=== PATIENT | male | born 1945 | race Caucasian/White ===

== ENCOUNTER 2019-08-09 18:23 | Outpatient (CLI) | payer MEDICARE, OTHER, SELFPAY | END 2019-08-09 18:24 | disposition home or self-care (01) | LOC: LAB 18:25 | PROVIDERS: PCP Nurse Practitioner Family; Visit Provider Nurse Practitioner Family | DX: R30.0 Dysuria (principal) | CPT/HCPCS: 87077; 87086; 87186 ==

== ENCOUNTER 2019-12-25 16:49 | Outpatient (CLI) | payer MEDICARE, OTHER, SELFPAY ==
[2019-12-25 17:16] LABS: Basophils % 0.5 %; Eosinophils # 0.1 10^3/uL (0.0-0.8); Eosinophils % 1.6 %; Hematocrit 35.3 % (42.0-52.0); Hemoglobin 12.2 g/dL (11.7-16.6); Lymphocytes # 1.6 10^3/uL (0.8-4.8); Lymphocytes % 21.2 %; Mean Corpuscular HGB Conc 34.6 g/dL (30.0-36.0); Mean Corpuscular Hemoglobin 32.1 pg (28.0-34.0); Mean Corpuscular Volume 92.9 fL (80-94); Mean Platelet Volume 10.8 fL (7.4-10.4); Monocytes # 0.8 10^3/uL (0.2-0.9); Monocytes % 10.7 %; Neutrophils # 4.82 10^3/uL (1.8-7.7); Neutrophils % 65.9 %; Nucleated Red Blood Cells % 0 %; Platelet Count 213 10^3/cmm (130-400); Red Cell Distribution Width 12.5 % (12.1-15.1); White Blood Count 7.3 10^3/uL (4.0-10.0)
[2019-12-25 18:08] LABS: Estmated Average Glucose 117; Hemoglobin A1C 5.7 % (4.0-6.0)
[2019-12-25 18:17] LABS: Alanine Aminotransferase 14 U/L (0-41); Albumin Level 3.9 g/dL (3.5-5.2); Alkaline Phosphatase 92 IU/L (40-130); Anion Gap 14.9 (5-19); Aspartate Amino Transferase 18 U/L (0-40); Blood Urea Nitrogen 15 mg/dL (8-23); Calcium 8.8 mg/dL (8.5-10.5); Carbon Dioxide 26 mmol/L (22-29); Chloride 99 mmol/L (98-107); Chol HDL Ratio 2.43 mg/dL (1.0-5.00); Cholesterol 73 mg/dL (0-200); Globulin 2.6 g/dL (1.3-4.6); Glucose 115 mg/dL (65-115); HDL Cholesterol 30 mg/dL (60-100); LDL Cholesterol Calculated 25 mg/dL (50-129); LDL HDL Ratio 0.83 RATIO (0.00-3.22); Osmolality Calculated 281 mOsm/kg (285-295); Sodium 137 mmol/L (136-145); Total Bilirubin 0.4 mg/dL (0.15-1.2); Total Protein 6.5 g/dL (6.6-8.7); Triglycerides 89 mg/dL (0-150)
[2019-12-25 18:22] LABS: Creatinine Urine, Random 40 mg/dL (39-259); Microalbumin Random Urine 4 ug/dL (0-20)
[2019-12-25 18:24] LABS: Microalbum Creatinine Ratio Ur 100 mg/dL (0-20); Potassium 2.9 mmol/L (3.5-5.1)
== END 2019-12-25 16:50 | disposition home or self-care (01) ==
LOC: LAB 16:53
PROVIDERS: PCP Nurse Practitioner Family; Visit Provider Nurse Practitioner Family
DX: E78.00 Pure hypercholesterolemia, unspecified (principal); I10 Essential (primary) hypertension; R31.21 Asymptomatic microscopic hematuria
CPT/HCPCS: 80053; 80061; 82044; 83036; 84153; 85025

== ENCOUNTER 2020-01-10 14:53 | Outpatient (CLI) | payer MEDICARE, OTHER, SELFPAY ==
[2020-01-10 16:51] LABS: Anion Gap 13.4 (5-19); Blood Urea Nitrogen 15 mg/dL (8-23); Calcium 9.2 mg/dL (8.5-10.5); Carbon Dioxide 24 mmol/L (22-29); Chloride 103 mmol/L (98-107); Chol HDL Ratio 2.33 mg/dL (1.0-5.00); Cholesterol 91 mg/dL (0-200); Glucose 112 mg/dL (65-115); HDL Cholesterol 39 mg/dL (60-100); LDL Cholesterol Calculated 36 mg/dL (50-129); LDL HDL Ratio 0.92 RATIO (0.00-3.22); NT Pro B Type Natriuretic Pept 646 pg/mL (0-125); Osmolality Calculated 286 mOsm/kg (285-295); Potassium 3.4 mmol/L (3.5-5.1); Sodium 137 mmol/L (136-145); Triglycerides 79 mg/dL (0-150)
== END 2020-01-10 14:54 | disposition home or self-care (01) ==
PROVIDERS: Family Medicine; PCP Nurse Practitioner Family; Visit Provider Nurse Practitioner Family
DX: E78.5 Hyperlipidemia, unspecified (principal); E87.6 Hypokalemia; R60.9 Edema, unspecified; R31.0 Gross hematuria
CPT/HCPCS: 80048; 80061; 81003; 83880; 87086

== ENCOUNTER 2020-01-30 13:39 | Outpatient (CLI) | payer MEDICARE, OTHER, SELFPAY ==
--- NOTE | 2020-01-30 | USCV_ITS ---
Abimael Santillan Age: 74 Gender: M : 1945 Exam Date: 01/30/2020 14:25 Ordering Phys: Kallie Bedoya NP Technologist: Vaughn Aragon [place]am [place] [facility] [place]ication: COPD, EDEMA OF BLE, HTN BP: 136 / 74 HR: 69 Rhythm: Sinus Technical Quality: Fair MEASUREMENTS (Male / Female) Normal Values 2D ECHO LV Diastolic Diameter PLAX 3.1 cm 4.2 - 5.9 / 3.9 - 5.3 cm LV Systolic Diameter PLAX 1.9 cm IVS Diastolic Thickness 0.7 cm 0.6 - 1.0 / 0.6 - 0.9 cm IVS Systolic Thickness 1.1 cm LVPW Diastolic Thickness 0.9 cm 0.6 - 1.0 / 0.6 - 0.9 cm LVPW Systolic Thickness 1.0 cm LVOT Diameter 2.3 cm LV Ejection Fraction 2D Teich 71.8 % LV Ejection Fraction MOD 2C 73.5 % LV Ejection Fraction 2C AL 72.5 % LA Diameter 3.1 cm LA Width 3.5 cm LA Height 4.0 cm RA Width 3.4 cm RA Height 4.0 cm Aorta at Sinotubular Diameter 1.1 cm M-MODE LV Diastolic Diameter MM 5.7 cm 4.2 - 5.9 / 3.9 - 5.3 cm LV Systolic Diameter MM 3.4 cm LV Ejection Fraction MM Teich 69.8 % IVS Diastolic Thickness MM 1.1 cm 0.6 - 1.0 / 0.6 - 0.9 cm IVS Systolic Thickness MM 1.5 cm LVPW Diastolic Thickness MM 1.4 cm 0.6 - 1.0 / 0.6 - 0.9 cm LVPW Systolic Thickness MM 1.9 cm RV Diastolic Diameter MM 0.8 cm Aortic Annulus Diameter 3.6 cm LA Ao Ratio MM 0.9 MV E Point Septal Separation 0.7 cm DOPPLER AV Peak Velocity 150.0 cm/s LVOT Peak Velocity 132.0 cm/s AV Area Cont Eq vti 3.4 cm squared AV Area Cont Eq pk 3.6 cm squared MV Area PHT 5.0 cm squared Mitral E to A Ratio 0.8 MV E' Velocity 42.0 cm/s Mitral E to MV E' Ratio 7.2 Mitral E to LV E' Lateral Ratio 8.3 Mitral E to LV E' Septal Ratio 6.4 TR Peak Velocity 131.0 cm/s TR Peak Gradient 6.9 mmHg TV Peak E Velocity 82.0 cm/s Right Atrial Pressure 3.0 mmHg Pulmonary Artery Systolic Pressu 9.9 mmHg FINDINGS Left Ventricle Normal left ventricular size and systolic function, EF 72 %. Mild left ventricular hypertrophy. No regional wall motion abnormalities. Grade I/IV diastolic dysfunction (abnormal relaxation filling pattern), normal to mildly elevated filling pressures. Right Ventricle Normal right ventricular size and systolic function. Right Atrium The right atrium is normal in size. Echogenic mass, measuring 2.0 x 1.9 cm size patient be attached near to the eustachian valve of the right atrium Left Atrium The left atrium is normal in size. Mitral Valve Thickened mitral valve. Trace mitral valve regurgitation. Aortic Valve Thickened aortic valve. Trace aortic valve regurgitation. Tricuspid Valve No gross abnormalities Pulmonic Valve Pulmonic valve not well visualized. Pericardium Normal pericardium without effusion. Aorta Normal ascending aorta dimension. CONCLUSIONS Normal left ventricular size and systolic function, EF 72 %. Mild left ventricular hypertrophy. No regional wall motion abnormalities. Grade I/IV diastolic dysfunction (abnormal relaxation filling pattern), normal to mildly elevated filling pressures. Thickened mitral valve. Trace mitral valve regurgitation. Thickened aortic valve. Trace aortic valve regurgitation. There is no pericardial effusion. Echogenic mass, partially mobile, attached near to the eustachian valve of the right atrium measuring 2.0 x 1.9 cm. Compared to the previous study from 10/20/2016, there may not be a significant change Dr Robb Tran MD [facility] (Electronically Signed) Final Date: 30 January 2020 21:20 S
--- NOTE | 2020-01-30 13:47 | US_ITS ---
WS: [id number] ULTRASOUND RENAL TECHNIQUE: Ultrasound examination of both kidneys. CLINICAL INFORMATION: GROSS HEMATURIA COMPARISON: None. FINDINGS: RIGHT: Right kidney is normal in size and appearance. Echogenicity: Normal. Cortical thickness: 1.3 cm; Normal. Hydronephrosis: None. Perinephric fluid: None. Right kidney measures: 10.1 cm x 4.4 cm x 5.3 cm. LEFT: Left kidney is normal in size and appearance. Left renal cyst measuring 1.3 x 1.0x 1.5 cm Echogenicity: Normal. Cortical thickness: 1.2 cm; Normal. Hydronephrosis: None. Perinephric fluid: None. Left kidney measures: 9.8 cm x 3.7 cm x 5.5 cm. Normal visualized aorta.Enlarged prostate measuring 3.9 x 3.8 x 4.6 CM. Recommend correlation PSA. Diffuse bladder wall thickening can be seen with chronic cystitis or bladder outlet obstruction. US/US renal BI* [id number] IMPRESSION: 1. No hydronephrosis in either kidney. 2. Left inferior pole renal cyst measuring 1.3 x 1.0 x 1.5 cm 3. Enlarged prostate measuring 3.9 x 3.8 x 4.6 CM. Recommend correlation PSA. 4. Diffuse bladder wall thickening can be seen with chronic cystitis or bladde r outlet obstruction.
== END 2020-01-30 13:40 | disposition home or self-care (01) ==
LOC: US 13:41
PROVIDERS: PCP Nurse Practitioner Family; Visit Provider Nurse Practitioner Family
DX: R31.0 Gross hematuria (principal); J44.9 Chronic obstructive pulmonary disease, unspecified; R60.0 Localized edema; I10 Essential (primary) hypertension
CPT/HCPCS: 76770; 93306

== ENCOUNTER → 2020-02-19 13:39 | Outpatient (BNVA) | payer MEDICARE, OTHER, SELFPAY | PROVIDERS: PCP Nurse Practitioner Family; Visit Provider Nurse Practitioner Family | DX: R31.0 Gross hematuria (principal) | CPT/HCPCS: 88112 ==

== ENCOUNTER 2020-03-01 08:45 | Outpatient (CLI) | payer MEDICARE, OTHER, SELFPAY ==
[2020-03-01 09:49] LABS: Blood Urea Nitrogen 11 mg/dL (8-23)
[2020-03-01] MEDS: iodixanol 320 mg/mL 100mL Btl IV (10:11)
--- NOTE | 2020-03-01 10:30 | CT_ITS ---
WS: [id number] CT ABDOMEN AND PELVIS WITH AND WITHOUT CONTRAST HISTORY: GROSS HEMATURIA TECHNIQUE: Unenhanced 5 mm axial imaging first performed through the abdomen. Post contrast imaging t hrough the abdomen and pelvis. Oral contrast has been provided. Sagittal and coronal reformats are s ubmitted. All CT scans at [facility] use at least one of these dose optimization techniqu es: automated exposure control; mA and/or kV adjustment per patient size (includes targeted exams whe re dose is matched to clinical indication); or iterative reconstruction. CONTRAST: Visipaque 320; 95 mL IV. DLP: 2395.93 mGy.cm COMPARISON: 07/08/2016 Hyperexpanded lung bases with emphysema. Dependent changes at the lung bases. Circumferential thicken ing of the distal esophagus is similar to the prior study. Prior cholecystectomy. Mild physiologic dilatation of the common bile duct and intrahepatic ducts. Sp lenic granulomata. Negative pancreas and adrenal glands. Moderate atherosclerosis aorta. There is mil d ectasia with a maximum diameter of 2.7 cm. Iliac arteries are patent with moderate calcified plaque . No free fluid or adenopathy. RIGHT kidney: 9.9 cm in length. Vascular calcification. No obstruction. 5 mm nonobstructing calcifica tion in the lower pole. Very minimal perinephric stranding. No mass. No filling defects in the renal pelvis or ureter. LEFT kidney: 11.2 cm in length. Mild perinephric stranding. Scattered vascular calcifications. 2 kan cent or lobulated 8 mm calcification nonobstructing lower pole. Exophytic nodule from the lower pole measures 11 mm. On the noncontrast study this nodule is slightly hyperdense. No increase in size sinc e the prior study of 2016. Favor this is probably a small complex cyst. No uroepithelial lesion. Ther e is a duplicated proximal collecting system on the LEFT. There is very mild wall thickening of the p roximal LEFT ureter, image 137 of series 3. Moderate fecal retention. The appendix is normal. There are a few diverticula in the sigmoid colon wi thout acute inflammation. Prostate gland is enlarged and encroaching into the urinary bladder. Straightening of the normal lumbar lordosis. Advanced degenerative disc disease at L3-4 and L4-5. CT/CT abdomen pelvis wo/w [id number] IMPRESSION: 1. Nonobstructive bilateral lower pole renal calcifications. 2. 11 mm nonenhancing nodule from the lower pole LEFT kidney. Nodule previousl y described in 2017 without significant increase in size. 3. Prostate gland enlargement. 4. Very minimal soft tissue thickening involving the proximal LEFT ureter. Pos tinflammatory versus neoplastic. 5. Duplicated LEFT collecting system. 6. Prior cholecystectomy. 7. Chronic circumferential thickening of the esophagus.
== END 2020-03-01 08:46 | disposition home or self-care (01) ==
LOC: RAD 08:50
PROVIDERS: PCP Nurse Practitioner Family; Visit Provider Urology
DX: R31.0 Gross hematuria (principal); N20.0 Calculus of kidney; N40.0 Benign prostatic hyperplasia without lower urinary tract symptoms; Z90.49 Acquired absence of other specified parts of digestive tract
CPT/HCPCS: 36415; 74178; 81003; 82565; 84520

== ENCOUNTER 2020-06-21 10:01 | Outpatient (CLI) | payer MEDICARE, OTHER, SELFPAY ==
--- NOTE | 2020-06-21 10:10 | CT_ITS ---
WS: [id number] LDCT LUNG CANCER SCREENING TECHNIQUE: Noncontrast CT of the chest with coronal and sagittal reformatted images. CLINICAL INFORMATION: NICOTINE DEPENDENCE,CIGARETTES COMPARISON: None. DLP: 60.13 mGy.cm DIvol: 1.[address] scans at [facility] use at least one of these dose optimization techniques: automat ed exposure control; mA and/or kV adjustment per patient size (includes targeted exams where dose is matched to clinical indication); or iterative reconstruction. FINDINGS: Both lungs are well aerated. No acute pulmonary infiltrates. No suspicious pulmonary parenchymal opac ities. No focal pneumonia or pleural fluid. Aortic calcification. Coronary calcification. No mediastinal or hilar lymphadenopathy. No axillary lymphadenopathy. Adrenal glands are normal. 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 Mild to moderate central ca nal stenosis unchanged since 2019 CT/CT lung screening [id number] IMPRESSION: LUNG-RADS: 1-Negative FOLLOW UP: 12 Month: Continue annual screening with LDCT
== END 2020-06-21 10:02 | disposition home or self-care (01) ==
LOC: CT 10:03
PROVIDERS: PCP Nurse Practitioner Family; Visit Provider Nurse Practitioner Family
DX: Z12.2 Encounter for screening for malignant neoplasm of respiratory organs (principal); F17.210 Nicotine dependence, cigarettes, uncomplicated
CPT/HCPCS: 71271

== ENCOUNTER 2020-09-18 15:27 | Outpatient (CLI) | payer MEDICARE, OTHER, SELFPAY ==
--- NOTE | 2020-09-18 | US_ITS ---
WS: [id number] RENAL ULTRASOUND HISTORY: ACUTE INJURY OF KIDNEY COMPARISON: 01/30/2020 TECHNIQUE: 2-D and color Doppler imaging of the kidney submitted. Right kidney: 9.7 cm x 4.6 cm x 4.9 cm. Normal echogenicity with no hydronephrosis or mass. Left kidney: 9.9 cm x 4.9 cm x 5.9 cm. Exophytic solid appearing nodule from the lower pole LEFT kidney measures 1.5 x 1.3 x 1.3 cm. Solid n odule without significant increase in size since 01/30/2020. Nodule did not enhance on a prior CT the refore this is probably a complex cyst. Aorta: Normal. Urinary Bladder: Normally distended urinary bladder. Prostate gland is enlarged measuring 3.5 x 3.3 c m. US/US renal BI* [id number] IMPRESSION: 1. No hydronephrosis. 2. Solid nodule measuring 1.5 x 1.3 x 1.3 cm from the lower pole the LEFT kidn ey. This nodule did not enhance on a prior CT of 03/01/2020. This is probably a complex cyst.
== END 2020-09-18 15:28 | disposition home or self-care (01) ==
LOC: RAD 15:33
PROVIDERS: PCP Nurse Practitioner Family; Visit Provider Internal Medicine Nephrology
DX: N17.9 Acute kidney failure, unspecified (principal); N18.32 Chronic kidney disease, stage 3b; N28.89 Other specified disorders of kidney and ureter
CPT/HCPCS: 76770

== ENCOUNTER 2021-03-04 13:43 | Outpatient (CLI) | payer MEDICARE, OTHER, SELFPAY ==
--- NOTE | 2021-03-04 13:45 | XRR_ITS ---
PROCEDURE INFORMATION: Exam: XR Abdomen Exam date and time: 03/04/2021 1:45 PM Age: 75 years old Clinical indication: Condition or disease; Other: Urolithiasis; Prior surgery; Surgery type: Gb TECHNIQUE: Imaging protocol: XR of the abdomen. Views: Frontal supine view of the abdomen. 1 View. COMPARISON: CT abdomen pelvis wo/w [id number] 03/01/2020 9:58 AM FINDINGS: Gastrointestinal tract: There is mildly increased stool noted in the ascending colon. Organs: Left renal lower pole 6 mm caliceal calculus. The gallbladder is likely surgically absent, with metallic clips overlying the gallbladder fossa. Vasculature: 2.9 mm calcification over the right renal hilum corresponds to a previous probable vascular calcification. The previously demonstrated right lower pole renal caliceal calculus is not depicted. Right pelvic calcified phleboliths. Bones/joints: L3-L4, L4-L5 degenerative disc disease. Left lower lumbar facet primary osteoarthritis. XR/XR KUB [id number] IMPRESSION: 1. Left renal calyceal lithiasis. 2. Prior cholecystectomy. 3. Mild right abdominal colonic constipation. Radiation Dose CTDIVOL = (mGy): DLP = (mGy-cm)
== END 2021-03-04 13:44 | disposition home or self-care (01) ==
LOC: RAD 13:47
PROVIDERS: PCP Nurse Practitioner Family; Visit Provider Urology
DX: N20.9 Urinary calculus, unspecified (principal)
CPT/HCPCS: 74018

== ENCOUNTER 2021-07-29 14:54 | Outpatient (CLI) | payer MEDICARE, OTHER, SELFPAY ==
--- NOTE | 2021-07-29 15:00 | XR_ITS ---
WS: [id number] Exam: XR KUB [id number] Date/Time of Exam: 07/29/2021 3:12 PM Reason For Exam: UROLITHIASIS Comparison 03/04/2021. Calcifications superimpose both kidneys and may represent renal calculi. Signs of probable prior chol ecystectomy. No bowel obstruction or free air. Moderate amount retained stool in the colon. Degenerat kelli changes and mild scoliosis of the lumbar spine. XR/XR KUB [id number] IMPRESSION: 1. No acute abdominal finding. Constipation. 2. Small calcifications superimpose both renal silhouettes and may represent re nal calculi.
== END 2021-07-29 14:55 | disposition home or self-care (01) ==
LOC: RAD 15:00
PROVIDERS: Visit Provider Urology
DX: N20.0 Calculus of kidney (principal); R31.0 Gross hematuria
CPT/HCPCS: 74018; 81003

== ENCOUNTER 2021-09-29 11:38 | Outpatient (CLI) | payer MEDICARE, OTHER, SELFPAY ==
--- NOTE | 2021-09-29 12:02 | CT_ITS ---
WS: [id number] LDCT LUNG CANCER SCREENING HISTORY: NICOTINE DEPENDENCE CIGARETTES TECHNIQUE: Axial imaging performed from the apices to 1 cm below the costophrenic angles. Coronal and sagittal reformats are submitted with axial MIP series. All CT scans at [facility] use at least one of these dose optimization techniques: automated exposure control; mA and/or kV adjustment per patient size (includes targeted exams where dose is matched to clinical indication); or iterativ e reconstruction. DLP: 82.21 mGy.cm DIvol: Mean CTDIvol: 1.60 (mGy) COMPARISON: 06/21/2020 Diagnostic quality: Satisfactory Lung Nodules: Marked pulmonary hyperexpansion. No pulmonary nodules identified. No mass or pneumonia. Lungs: Soft tissue debris probably mucous secretions in the proximal bronchi. Heart: Normal size heart. No pericardial effusion. Scattered coronary artery calcifications, greatest in the LEFT anterior descending and circumflex artery. Other findings: Mild atherosclerosis aorta. No adenopathy. CT/CT lung screening [id number] IMPRESSION: LUNG-RADS: 1-Negative FOLLOW UP: 12 Month: Continue annual screening with LDCT OTHER FINDINGS (S MODIFIER): None.
== END 2021-09-29 11:39 | disposition home or self-care (01) ==
LOC: RAD 11:55
PROVIDERS: Visit Provider Nurse Practitioner Family
DX: Z12.2 Encounter for screening for malignant neoplasm of respiratory organs (principal); F17.210 Nicotine dependence, cigarettes, uncomplicated
CPT/HCPCS: 71271

== ENCOUNTER 2023-01-20 19:35 | Inpatient (IN) | payer MEDICARE, OTHER, SELFPAY ==
--- NOTE | 2023-01-20 19:39 | XRR_ITS ---
PROCEDURE INFORMATION: Exam: XR Left Hip Exam date and time: 01/20/2023 8:10 PM Age: 77 years old Clinical indication: Injury or trauma; Fall; Other: Possible fracture of L hip TECHNIQUE: Imaging protocol: Radiologic exam of the left hip. Views: 2 or 3 views hip with pelvis when performed. COMPARISON: CT abdomen pelvis wo/w [id number] 03/01/2020 9:58 AM FINDINGS: Bones/joints: Intertrochanteric left hip fracture with foreshortening. Soft tissues: Soft tissue swelling around left hip. XR/XR hip LT 2-3V wo/w pel* [id number] IMPRESSION: Intertrochanteric left hip fracture with foreshortening.
--- NOTE | 2023-01-20 19:39 | XRR_ITS ---
PROCEDURE INFORMATION: Exam: XR Chest Exam date and time: 01/20/2023 8:10 PM Age: 77 years old Clinical indication: Pain; Other: Pre-op; Additional info: Pre op TECHNIQUE: Imaging protocol: Radiologic exam of the chest. Views: 1 view. COMPARISON: CT lung screening [id number] 09/29/2021 12:29 PM FINDINGS: Lungs: Unremarkable. No consolidation. Pleural spaces: Unremarkable. No pleural effusion. No pneumothorax. Heart/Mediastinum: Unremarkable. No cardiomegaly. Bones/joints: Kyphoplasty material noted within the midthoracic spine. Visualized osseous structures are intact. XR/XR chest 1V portable [id number] IMPRESSION: No acute findings.
[2023-01-20 19:40] VITALS: BP 131/98; PULSE 103; RESP 17; O2SAT 91; BMI 25.8
--- NOTE | 2023-01-20 19:41 | ED_ITS ---
HPI - Fall General: Chief Complaint: Fall Stated Complaint: fall, left hip pain Time Seen by Provider: 01/20/23 19:36 History of Present Illness: 77-year-old male presents with left hip pain. Patient reports he was wearing sandals, he was taking the trash out when he caught his sandal tripped and fell onto his left hip onto the concrete. Patient was brought in by EMS. Patient re ceived 4 Zofran and 100 and fentanyl in route. Patient is on Eliquis. Associated symptoms-after fall: Denies abdominal pain, chest pain or headache(s) Review of Systems Const: Denies: fever(s) or chills Card: Denies: chest pain or palpitations Resp: Denies: dyspnea or productive cough GI: Denies: abdominal pain, nausea or vomiting Musc: Reports: joint pain, limited range of motion and deformity (Left hip) Neuro: Denies: headache(s) or dizziness PFSH ED PFSH: Medical History Atrial fibrillation COPD (chronic obstructive pulmonary disease) Gross hematuria HTN (hypertension) with goal to be determined Hyperlipemia Urolithiasis Surgical History History of colonoscopy with polypectomy 2016 S/P cholecystectomy S/P hernia repair Family History Mother Heart disease Father Heart disease Sister Diabetes Social History Smoking and tobacco/nicotine status: current every day tobacco/nicotine user Alcohol intake: unknown Substance/Drug Use: never Marital status: Current occupational status: retired Physical Exam Const: COMMON NORMALS: patient oriented x3 and alert Resp: COMMON NORMALS: normal respiratory effort, No use of accessory muscles and clear to auscultation bilaterally AUSCULTATION: clear to auscultation bilaterally Cardio: COMMON NORMALS: regular rate, regular rhythm and Peripheral pulses 2+ throughout RATE: regular rate RHYTHM: regular rhythm PERIPHERAL PULSES: Peripheral pulses 2+ throughout Extremity: LEFT LOWER EXTREMITY: Yes hip joint (Left leg internally rotated and shortened) Left hip: Yes inspection and Yes ROM (Decreased,) Neuro: COMMON NORMALS: patient oriented x3 SENSORIUM/ORIENTATION: Yes alert Psych: COMMON NORMALS: mental status grossly normal, cooperative and normal affect Skin: COMMON NORMALS: no rashes or lesions noted GENERAL SKIN EXAM: no rashes or lesions noted Course Vital Signs: Vital signs: Vital Signs Pulse Rate 103 H 01/20/23 19:40 Respiratory Rate 17 01/20/23 19:40 Blood Pressure 131/98 01/20/23 19:40 Pulse Oximetry 91 01/20/23 19:40 Oxygen Delivery Me thod Room Air 01/20/23 19:40 MDM - Fall Medical Decision Making Patient's diagnostic studies ordered reviewed and interpreted by me. He has elevated white count that is likely reactive. Patient otherwise has no signif icant findings on labs. Patient's x-rays were ordered, with initial interpretation of left hip fracture with final interpretation per radiology report. I did discuss case with on-call Ortho Dr. Espana and on-call hospitalist Dr. Seaman. Patient to be admitted to the hospitalist with Ortho to consult in the morning for further management. Patient was stable upon transfer to the floor. Medical Records I reviewed the patient's medical records. Lab Data I reviewed the patient's lab results. 01/20/23 20:02 01/20/23 20:02 Laboratory Results WBC 16.77 10^3/uL (3.29-11.43) H 01/20/23 20:02 RBC 4.02 10^6/uL (3.85-5.65) 01/20/23 20:02 Hgb 13.00 g/dL (11.27-16.99) 01/20/23 20:02 Hct 38.1 % (37-53) 01/20/23 20:02 MCV 94.8 fl (82-101) 01/20/23 20:02 MCH 32.3 pg (27-33) 01/20/23 20:02 MCHC 34.1 g/dL (30-55) 01/20/23 20:02 RDW 12.9 % (12.1-15.1) 01/20/23 20:02 Plt Count 196 10^3/cmm (157-399) 01/20/23 20:02 MPV 10.9 fL (7.4-10.4) H 01/20/23 20:02 Neut % (Auto) 86.4 % 01/20/23 20:02 Lymph % (Auto) 6.7 % 01/20/23 20:02 Hodgeman % (Auto) 5.5 % 01/20/23 20:02 Eos % (Auto) 0.7 % 01/20/23 20:02 Baso % (Auto) 0.2 % 01/20/23 20:02 Neut # (Auto) 14.49 10^3/uL (1.8-7.7) H 01/20/23 20:02 Lymph # (Auto) 1.1 10^3/uL (0.8-4.8) 01/20/23 20:02 Hodgeman # (Auto) 0.9 10^3/uL (0.2-0.9) 01/20/23 20:02 Eos # (Auto) 0.1 10^3/uL (0.0-0.8) 01/20/23 20:02 Baso # (Auto) 0.0 10^3/uL (0.0-0.1) 01/20/23 20:02 Nucleated RBC % (auto) 0 % 01/20/23 20:02 Nucleated RBCs # 0.0 /100WBC 01/20/23 20:02 Sodium 136 mmol/L (136-145) 01/20/23 20:02 Potassium 3.5 mmol/L (3.5-5.1) 01/20/23 20:02 Chloride 101 mmol/L (98-107) 01/20/23 20:02 Carbon Dioxide 28 mmol/L (22-29) 01/20/23 20:02 Anion Gap 10.5 (5-19) 01/20/23 20:02 BUN 21 mg/dL (8-23) 01/20/23 20:02 Creatinine 1.3 mg/dL (0.7-1.2) H 01/20/23 20:02 GFR Calculation Not Reportable 01/20/23 20:02 Glucose 134 mg/dL (65-115) H 01/20/23 20:02 Calculated Osmolality 287 mOsm/kg (285-295) 01/20/23 20:02 Calcium 9.2 mg/dL (8.5-10.5) 01/20/23 20:02 Total Bilirubin 0.2 mg/dL (0.15-1.2) 01/20/23 20:02 AST 23 U/L (0-40) 01/20/23 20:02 ALT 21 U/L (0-41) 01/20/23 20:02 Alkaline Phosphatase 96 U/L (40-130) 01/20/23 20:02 Total Protein 7.1 g/dL (6.6-8.7) 01/20/23 20:02 Albumin 4.0 g/dL (3.5-5.2) 01/20/23 20:02 Globulin 3.1 g/dL (1.3-4.6) 01/20/23 20:02 XR interpretation done by ED provider, pending radiology final review ED provider radiology interpretation(s): Left hip fracture Discharge Plan Discharge Patient Disposition: Admitted As Inpatient Clinical Impression: Closed fracture of left hip Condition: Stable Prescriptions: No Action tamsulosin 0.4 mg capsule 0.4 mg PO DAILY fluticasone propion-salmeterol [Advair Diskus] 100-50 mcg/dose blister with device 1 puff INHALATION BID ferrous sulfate 325 mg (65 mg iron) tablet 325 mg PO .WEEKLY albuterol sulfate 90 mcg/actuation HFA aerosol inhaler 2 puff INHALATION BID metoprolol succinate 25 mg tablet extended release 24 hr 25 mg PO DAILY omeprazole 20 mg capsule,delayed release(DR/EC) 20 mg PO DAILY Eliquis 5 mg tablet 5 mg PO DAILY finasteride [Proscar] 5 mg tablet 5 mg PO DAILY rosuvastatin 20 mg tablet 20 mg PO DAILY acetaminophen 500 mg tablet 500 mg PO .AT NIGHT All Day Allergy (cetirizine) 10 mg capsule 10 mg PO DAILY amlodipine 5 mg tablet 5 mg PO BID Qty: 180 3RF Coding Level of Care Code ED Outside Production Inspector for Marcel Pritchett
[2023-01-20 20:09] LABS: Basophils % 0.2 %; Eosinophils # 0.1 10^3/uL (0.0-0.8); Eosinophils % 0.7 %; Hematocrit 38.1 % (37-53); Lymphocytes # 1.1 10^3/uL (0.8-4.8); Lymphocytes % 6.7 %; Mean Corpuscular HGB Conc 34.1 g/dL (30-55); Mean Corpuscular Hemoglobin 32.3 pg (27-33); Mean Corpuscular Volume 94.8 fl (82-101); Mean Platelet Volume 10.9 fL (7.4-10.4); Monocytes # 0.9 10^3/uL (0.2-0.9); Monocytes % 5.5 %; Neutrophils # 14.49 10^3/uL (1.8-7.7); Neutrophils % 86.4 %; Nucleated Red Blood Cells % 0 %; Platelet Count 196 10^3/cmm (157-399); Red Blood Count 4.02 10^6/uL (3.85-5.65); Red Cell Distribution Width 12.9 % (12.1-15.1); White Blood Count 16.77 10^3/uL (3.29-11.43)
[2023-01-20 20:25] LABS: Alanine Aminotransferase 21 U/L (0-41); Alkaline Phosphatase 96 U/L (40-130); Anion Gap 10.5 (5-19); Aspartate Amino Transferase 23 U/L (0-40); Blood Urea Nitrogen 21 mg/dL (8-23); Calcium 9.2 mg/dL (8.5-10.5); Carbon Dioxide 28 mmol/L (22-29); Chloride 101 mmol/L (98-107); Globulin 3.1 g/dL (1.3-4.6); Glucose 134 mg/dL (65-115); Osmolality Calculated 287 mOsm/kg (285-295); Potassium 3.5 mmol/L (3.5-5.1); Sodium 136 mmol/L (136-145); Total Bilirubin 0.2 mg/dL (0.15-1.2); Total Protein 7.1 g/dL (6.6-8.7)
--- NOTE | 2023-01-20 21:07 | PC.NURSE ---
Report called to ZAINAB Shipley on MS. All questions and concerns addressed at time of report.
[2023-01-20 21:09] VITALS: BP 133/86; BP 152/86; PULSE 64; PULSE 93; RESP 16; TEMP 36.4; O2SAT 94; O2SAT 96
--- NOTE | 2023-01-20 21:09 | ECG_ITS ---
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 Measurements Intervals Pyatt Rate: 116 P: 0 WY: 0 QRS: -50 QRSD: 96 T: 83 QT: 324 QTc: 450 Interpretive Statements ATRIAL FIBRILLATION WITH RAPID VENTRICULAR RESPONSE WITH ABERRANT CONDUCTION OR VENTRICULAR PREMATURE COMPLEXES INDETERMINATE AXIS LEFT ANTERIOR FASCICULAR BLOCK [QRS AXIS <= -45, QR IN I, RS IN II] Compared to ECG 02/12/2017 20:13:08 Ventricular premature complex(es) now present Aberrant conduction of supraventricular beat(s) now present Indeterminate axis now present Left anterior fascicular block now present Sinus rhythm no longer present Electronically Signed On 01-21-2023 21:37:40 CDT by Robb Tran M.D. [email or web address]
[2023-01-20] MEDS: famotidine 20 mg/2 mL INJ IVP (21:41)
[2023-01-20 21:42] VITALS: RESP 16
[2023-01-20] MEDS: sodium chloride 0.9% 1,000 ML 75 ML IV (21:42)
[2023-01-20] MEDS: morphine 4 mg/mL SDV 1 mL 2 MG IVP (21:42)
--- NOTE | 2023-01-20 23:05 | P.HP_ITS ---
Providers/Chief Complaint Admitting Physician: Morelia Seaman MD Primary Care Provider: KETAN Cole Chief Complaint: fall, left hip pain History of Present Illness Abimael Santillan is a 77 year old male with history of atrial fibrillation on Eliquis hypertension hyperlipidemia BPH presented after mechanical fall at home. As per the patient he does not remember the exact mechanism of fall but reports that he tripped and fell on his left hip. He denied any premonitory symptoms, fever nausea vomiting chest pain shortness of breath urinary or bowel complaints. Fall was associated with severe pain 10 out of 10 in the left hip and restriction of movements. Review of Systems Narrative: As per HPI Medications/Allergies Home Medications Medication Instructions Recorded Confirmed Last Taken Type fluticasone 100 mcg-salmeterol 50 1 puff inhalation BID 05/22/19 01/20/23 Unknown History mcg/dose blistr powdr for inhalation (Advair Diskus) tamsulosin 0.4 mg capsule 0.4 mg PO DAILY 05/22/19 01/20/23 01/19/23 History acetaminophen 500 mg tablet 500 mg PO .AT NIGHT 02/16/20 01/20/23 01/19/23 History albuterol sulfate 90 mcg/actuation 2 puff inhalation BID 02/16/20 01/20/23 Unk nown History aerosol inhaler apixaban 5 mg tablet (Eliquis) 5 mg PO DAILY 02/16/20 01/20/23 01/20/23 History ferrous sulfate 325 mg (65 mg 325 mg PO .WEEKLY 02/16/20 01/20/23 01/18/23 History iron) tablet finasteride 5 mg tablet (Proscar) 5 mg PO DAILY 02/16/20 01/20/23 01/19/23 Hi story omeprazole 20 mg capsule,delayed 20 mg PO DAILY 02/16/20 01/20/23 01/20/23 History release cetirizine 10 mg capsule (All Day 10 mg PO DAILY 02/19/20 01/20/23 01/19/23 History Allergy (cetirizine)) amlodipine 5 mg tablet 5 mg PO BID #180 tabs 03/26/20 01/20/23 01/20/23 Rx Allergies Allergy/AdvReac Type Severity Reaction Status Date / Time diltiazem Allergy Unknown Unknown Verified 07/29/21 15:55 enalapril Allergy Unknown Unknown Verified 07/29/21 15:55 PFSH Acute PFSH: Medical History Atrial fibrillation COPD (chronic obstructive pulmonary disease) Gross hematuria HTN (hypertension) with goal to be determined Hyperlipemia Urolithiasis Surgical History History of colonoscopy with polypectomy 2016 S/P cholecystectomy S/P hernia repair Family History Mother Heart disease Father Heart disease Sister Diabetes Social History Smoking and tobacco/nicotine status: current every day tobacco/nicotine user Alcohol intake: unknown Substance/Drug Use: never Marital status: Current occupational status: retired Vitals/I&O/Wt Last Vital Signs Temp 97.5 F L 01/20/23 21:09 Pulse 64 01/20/23 21:09 Resp 16 01/20/23 21:42 BP 133/86 01/20/23 21:09 Pulse Ox 96 01/20/23 21:09 O2 Del Method Room Air 01/20/23 21:34 Weight last 48 hrs Weight 81.647 kg Physical Exam Narrative: He is alert awake oriented x3 in mild distress due to hip pain Chest clear to auscultation bilaterally Cardiovascular normal heart sounds Abdomen soft nontender nondistended normal bowel sounds Extremities no edema noted but restriction of movements in the left lower extremity present. Mild external rotation of the left lower extremity seen. Data 01/20/23 20:02 01/20/23 20:02 Xray Ortho: Radiologist's impression: Intertrochanteric left hip fracture with foreshortening CXR: Radiologist's impression: No acute findings A&P Assessment and plan (1) Closed fracture of left hip: Plan 77-year-old male with history of atrial fibrillation on Eliquis hypertension hyperlipidemia BPH had a mechanical fall at home leading to left intertrochanteric hip fracture. Follow-up orthopedics in a.m for corrective surgery. He is n.p.o. past midnight Hold Eliquis for now Resume rest home medications IV Pepcid 20 mg every 12 hours for stress ulcer prophylaxis IV Zofran 4 mg every 8 hours as needed for nausea IV morphine 2 mg every 4 hours as needed for pain control Continue IV fluids normal saline at 75 ml per hour for dehydration and ARF. Intermittent compression devices for DVT prophylaxis He is full code for now Attestations Medical Necessity Statement*: He needs more than 2 days of continued hospitalization for corrective surgery for left hip fracture and postop recovery with rehab Time Spent in Patient Care: 30 minutes Coding Level of Care Code Acute Code for [facility] Diagnoses Closed fracture of left hip S72.002A Time Spent (min) 30
--- NOTE | 2023-01-20 23:21 | PC.NURSE ---
Belongings: $150 ko in [employer], counted with Randi shi RN. in front of patient, empty albbuterol inhaler box, amlodipine 5mg, eliquis 5mg, prilosec 20mg tamsulosin 0.4mg, docusate 100mg, iron 65mg, finasteride 5 mg, empty eliquis bottle Stored in [facility]
[2023-01-21] VITALS (26 sets, daily range): BP systolic 95–142; BP diastolic 61–93; PULSE 70–148; RESP 16–20; TEMP 36.2–37.3; O2SAT 90–100
--- NOTE | 2023-01-21 | XR_ITS ---
WS: [id number] Left femur and thigh, C-arm fluoroscopy views, 01/21/2023 Clinical Data: or pic, left intertorchanteric hip fracture. Comparison: Pelvis and left hip, 01/20/2023 Findings: Dr. Espana performed internal fixation of a comminuted intertrochanteric fracture of the left hip. Impression: Internal fixation of intertrochanteric fracture of left hip.
[2023-01-21] MEDS: morphine 4 mg/mL SDV 1 mL 2 MG IVP (04:02)
[2023-01-21 05:16] LABS: Basophils % 0.4 %; Eosinophils % 0.1 %; Hematocrit 34.8 % (37-53); Lymphocytes # 1.1 10^3/uL (0.8-4.8); Lymphocytes % 10.1 %; Mean Corpuscular HGB Conc 32.8 g/dL (30-55); Mean Corpuscular Hemoglobin 32.2 pg (27-33); Mean Corpuscular Volume 98.3 fl (82-101); Mean Platelet Volume 11.9 fL (7.4-10.4); Monocytes # 1.2 10^3/uL (0.2-0.9); Monocytes % 10.2 %; Neutrophils # 8.94 10^3/uL (1.8-7.7); Neutrophils % 78.8 %; Nucleated Red Blood Cells % 0 %; Platelet Count 180 10^3/cmm (157-399); Red Blood Count 3.54 10^6/uL (3.85-5.65); White Blood Count 11.33 10^3/uL (3.29-11.43)
[2023-01-21 05:33] LABS: Alanine Aminotransferase 21 U/L (0-41); Albumin Level 3.7 g/dL (3.5-5.2); Alkaline Phosphatase 86 U/L (40-130); Blood Urea Nitrogen 25 mg/dL (8-23); Calcium 8.9 mg/dL (8.5-10.5); Carbon Dioxide 21 mmol/L (22-29); Chloride 102 mmol/L (98-107); Globulin 2.2 g/dL (1.3-4.6); Glucose 128 mg/dL (65-115); Magnesium 1.8 mg/dL (1.7-2.3); Osmolality Calculated 290 mOsm/kg (285-295); Phosphorus 4.1 mg/dL (2.5-4.5); Sodium 137 mmol/L (136-145); Total Bilirubin 0.7 mg/dL (0.15-1.2); Total Protein 5.9 g/dL (6.6-8.7)
[2023-01-21 05:39] LABS: Anion Gap 18.4 (5-19); Aspartate Amino Transferase 26 U/L (0-40); Potassium 4.4 mmol/L (3.5-5.1)
--- NOTE | 2023-01-21 07:08 | P.CONIM_ITS ---
Providers/Reason For Consult Consulting Physician/Specialty*: Orthopedics Reason for Consult*: Left hip pain Attending Physician: Dick Sharma MD Primary Care Provider: KETAN Cole History of Present Illness History of Present Illness Abimeal Santillan is a 77 year old male who was taking the trash out at his residence when he slipped and fell sustaining injury to his left hip. [place] immediate pain with inability to move without severe sharp pain presented to the emergency room where x-rays confirmed a left hip fracture. He was admitted for more definitive management orthopedics was consulted. He was evaluated in room 254 with family present. Reports continued left hip pain that sharp stabbing constant in nature any movement makes it much worse. Rest gives her some temporary relief. Ranks the pain as 6 out of 10 on the pain scale. He does have an extensive tobacco history with 2 packs a day for a number of years. Reports history of atrial fibrillation rate is taking Eliquis. He denies any loss of consciousness in the fall. Denies any neck or back pain. Review of Systems Narrative: As per HPI Medications/Allergies Home Medications Medication Instructions Recorded Confirmed Last Taken Type fluticasone 100 mcg-salmeterol 50 1 puff inhalation BID 05/22/19 01/20/23 U nknown History mcg/dose blistr powdr for inhalation (Advair Diskus) tamsulosin 0.4 mg capsule 0.4 mg PO DAILY 05/22/19 01/20/23 01/19/23 History acetaminophen 500 mg tablet 500 mg PO .AT NIGHT 02/16/20 01/20/23 01/19/23 History albuterol sulfate 90 mcg/actuation 2 puff inhalation BID 02/16/20 01/20/23 Unknown History aerosol inhaler apixaban 5 mg tablet (Eliquis) 5 mg PO DAILY 02/16/20 01/20/23 01/20/23 History ferrous sulfate 325 mg (65 mg 325 mg PO .WEEKLY 02/16/20 01/20/23 01/18/23 History iron) tablet finasteride 5 mg tablet (Proscar) 5 mg PO DAILY 02/16/20 01/20/23 01/19/23 History omeprazole 20 mg capsule,delayed 20 mg PO DAILY 02/16/20 01/20/23 01/20/23 History release cetirizine 10 mg capsule (All Day 10 mg PO DAILY 02/19/20 01/20/23 01/19/23 History Allergy (cetirizine)) amlodipine 5 mg tablet 5 mg PO BID #180 tabs 03/26/20 01/20/23 01/20/23 Rx Allergies Allergy/AdvReac Type Severity Reaction Status Date / Time diltiazem Allergy Unknown Unknown Verified 07/29/21 15:55 enalapril Allergy Unknown Unknown Verified 07/29/21 15:55 Current Medications Generic Name Dose Route Start Last Admin Trade Name Freq PRN Reason Stop Dose Admin Famotidine 20 mg 01/20/23 21:15 01/20/23 21:41 Famotidine 20 Mg/2 Ml Inj IVP 20 mg Q12H ABDI Administration Sodium Chloride 1,000 mls @ 75 mls/hr 01/20/23 21:15 01/20/23 21:42 Sodium Chloride 0.9% IV 75 mls/hr .[id number] ABDI Administration Morphine Sulfate 2 mg 01/20/23 21:09 01/21/23 04:02 Morphine 4 Mg/Ml Sdv 1 Ml IVP 2 mg Q4H PRN Administration SEVERE PAIN PFSH Acute PFSH: Medical History Atrial fibrillation COPD (chronic obstructive pulmonary disease) Gross hematuria HTN (hypertension) with goal to be determined Hyperlipemia Urolithiasis Surgical History History of colonoscopy with polypectomy 2016 S/P cholecystectomy S/P hernia repair Family History Mother Heart disease Father Heart disease Sister Diabetes Social History Smoking and tobacco/nicotine status: current every day tobacco/nicotine user Alcohol intake: unknown Substance/Drug Use: never Marital status: Current occupational status: retired Vitals/I&O/Wt Last Vital Signs Temp 97.6 F 01/21/23 04:42 Pulse 88 01/21/23 04:42 Resp 17 01/21/23 04:42 BP 125/79 01/21/23 04:42 Pulse Ox 92 01/21/23 04:42 O2 Del Method Room Air 01/20/23 21:34 Weight last 48 hrs Weight 180 lb Physical Exam Narrative: Patient is alert and orient x3 has good general appearance normal mood and affect. Markedly tender with palpation over the left hip has a positive logroll negative on the right. He has good sensation light touch down both lower extremities skin is clear warm femoral good cap refill dorsalis pedis posterior tibial pulses are weak but palpable. There is no palpable pain at the knees or ankles. Appears to fire in all motor groups. He has no palpable pain in the lumbar thoracic or cervical spine full range in motion both upper extremities full range of motion of the cervical spine. Hands are warm good cap refill radial pulses are palpable. No palpable pain at the wrists elbows or shoulders. HENMT: COMMON NORMALS: normocephalic HEAD & SCALP: normocephalic Resp: COMMON NORMALS: normal respiratory effort Cardio: COMMON NORMALS: regular rate and regular rhythm RATE: regular rate RHYTHM: regular rhythm GI: COMMON NORMALS: Soft to palpation and non-tender PALPATION: Yes Soft to palpation : COMMON NORMALS: Yes no CVA tenderness BLADDER/KIDNEY EXAM: Yes no CVA tenderness Back/Pelvis: COMMON NORMALS: no CVA tenderness Psych: COMMON NORMALS: mental status grossly normal and cooperative Data 01/21/23 04:15 01/21/23 04:15 A&P Assessment and plan (1) Closed intertrochanteric fracture of left hip: Discussed the radiographs with him at length. At this point discussed treatment options which involve trochanteric femoral nail to the left hip. He has been n.p.o. Discussed with Dr. Espana he agrees above-stated plan will proceed with a trochanteric femoral nail to the left hip. Explained the risks and benefits of the procedure which include but not limited to bleeding infection nerve damage continued hip pain need for surgery reaction anesthesia as well as difficulty healing due to his tobacco use. He understands and wishes to proceed. More than 50% of the time spent with the patient today involved coordination of care, counseling and discussion of conservative versus surgical treatment options. Total amount of time spent with the patient was 51 minutes. Qualifiers: Encounter type: initial encounter Fracture alignment: displaced Qualified Code(s): S72.142A - Displaced intertrochanteric fracture of left femur, initial encounter for closed fracture (2) Tobacco abuse: Coding Level of Care Code Acute Code for Chg Fwd Diagnoses Closed intertrochanteric fracture of left hip S72.142A Encounter type: initial encounter Fracture alignment: displaced Tobacco abuse Z72.0 Time Spent (min) 51
[2023-01-21] MEDS: sodium chloride 0.9% 1,000 ML 30 ML IV (08:26)
--- NOTE | 2023-01-21 08:44 | W.PM.OPSUD ---
Surgery/Procedure H&P Update DATE OF PROCEDURE: January 21, 2023 DATE H&P PERFORMED: 01/21/23 H&P UPDATE INFORMATION: I have reviewed H&P completed within last 30 days, I have examined patient prior to procedure and No changes to prior documentation PREOP DIAGNOSIS: Left intertrochanteric hip fracture PLANNED PROCEDURE: Operation Date: 01/21/23 09:40 Proposed Procedures p Trochanteric Femoral Nail(Left) - Supa Espana DO
--- NOTE | 2023-01-21 08:47 | ANES.PREANE2 ---
Pre-Anesthetic Assessment Height/Weight: Height 1.78 m Weight 81.647 kg Temp Pulse Resp BP Pulse Ox O2 Del Method 98.3 F 112 H 17 126/73 93 Nasal Cannula 01/21/23 08:18 01/21/23 08:18 01/21/23 08:18 01/21/23 08:18 01/21/23 08:18 01/21/23 08:18 Preop Diagnosis: Left intertrochanteric hip fracture Operation Date: 01/21/23 09:40 Proposed Procedures p Trochanteric Femoral Nail(Left) - Supa Espana, DO Familial anesthetic complications: none Was Beta Luisana taken within 24 hours: N/A Was Clonidine taken within 24 hours: N/A Last intake: Intake Last Liquid Date 01/20/23 Last Liquid Time 14:00 Last Solid Date 01/20/23 Last Solid Time 11:00 Social Tobacco and No alcohol Exam alert, oriented x 3 and regular rate & rhythm rhonchi Airway Submandibular: within normal limits Cervical ROM: within normal limits Mallampati: Class II Dentition: false Pulmonary Chronic Obstructive Pulmonary Disease CV/HEM Atrial Fibrillation, Anemia, Arrythmia and Hypertension GI Gastroesophageal Reflux Disease [facility] [place] Osteoarthritis/DJD Anesthetic Plan ASA status: 3 Anesthesia: General Medications/Allergies Home Medications Medication Instructions Recorded Confirmed Last Taken Type fluticasone 100 mcg-salmeterol 50 1 puff inhalation BID 05/22/19 01/20/23 Unknown History mcg/dose blistr powdr for inhalation (Advair Diskus) tamsulosin 0.4 mg capsule 0.4 mg PO DAILY 05/22/19 01/20/23 01/19/23 History acetaminophen 500 mg tablet 500 mg PO .AT NIGHT 02/16/20 01/20/23 01/19/23 History albuterol sulfate 90 mcg/actuation 2 puff inhalation BID 02/16/20 01/20/23 Unknown History aerosol inhaler apixaban 5 mg tablet (Eliquis) 5 mg PO DAILY 02/16/20 01/20/23 01/20/23 History ferrous sulfate 325 mg (65 mg 325 mg PO .WEEKLY 02/16/20 01/20/23 01/18/23 History iron) tablet finasteride 5 mg tablet (Proscar) 5 mg PO DAILY 02/16/20 01/20/23 01/19/23 History omeprazole 20 mg capsule,delayed 20 mg PO DAILY 02/16/20 01/20/23 01/20/23 History release cetirizine 10 mg capsule (All Day 10 mg PO DAILY 02/19/20 01/20/23 01/19/23 History Allergy (cetirizine)) amlodipine 5 mg tablet 5 mg PO BID #180 tabs 03/26/20 01/20/23 01/20/23 Rx Allergies Allergy/AdvReac Type Severity Reaction Status Date / Time diltiazem Allergy Unknown Unknown Verified 07/29/21 15:55 enalapril Allergy Unknown Unknown Verified 07/29/21 15:55 Current Medications Generic Name Dose Route Start Last Admin Trade Name Freq PRN Reason Stop Dose Admin Famotidine 20 mg 01/20/23 21:15 01/20/23 21:41 Famotidine 20 Mg/2 Ml Inj IVP 20 mg Q12H ABDI Administration Sodium Chloride 1,000 mls @ 75 mls/hr 01/20/23 21:15 01/20/23 21:42 Sodium Chloride 0.9% IV 75 mls/hr .[id number] ABDI Administration Sodium Chloride 1,000 mls @ 30 mls/hr 01/21/23 08:15 01/21/23 08:26 Sodium Chloride 0.9% IV 01/22/23 08:14 30 mls/hr .Q24H ABDI Administration Morphine Sulfate 2 mg 01/20/23 21:09 01/21/23 04:02 Morphine 4 Mg/Ml Sdv 1 Ml IVP 2 mg Q4H PRN Administration SEVERE PAIN PFSH Anesthesia Medical History Atrial fibrillation COPD (chronic obstructive pulmonary disease) Gross hematuria HTN (hypertension) with goal to be determined Hyperlipemia Urolithiasis Surgical History History of colonoscopy with polypectomy 2016 S/P cholecystectomy S/P hernia repair Family History Mother Heart disease Father Heart disease Sister Diabetes Social History Smoking and tobacco/nicotine status: current every day tobacco/nicotine user Alcohol intake: unknown Substance/Drug Use: never Marital status: Current occupational status: retired Data Anesthesia 01/21/23 04:15 01/21/23 04:15 Short CBC 01/20/23 01/21/23 Range/Units 20:02 04:15 WBC 16.77 H 11.33 (3.29-11.43) 10^3/uL Hgb 13.00 11.40 (11.27-16.99) g/dL Hct 38.1 34.8 L (37-53) % MCV 94.8 98.3 (82-101) fl Plt Count 196 180 (157-399) 10^3/cmm Neut % (Auto) 86.4 78.8 % Neut # (Auto) 14.49 H 8.94 H (1.8-7.7) 10^3/uL BMP 01/20/23 01/21/23 20:02 04:15 Sodium 136 137 Potassium 3.5 4.4 Chloride 101 102 Carbon Dioxide 28 21 L BUN 21 25 H Creatinine 1.3 H 1.4 H Glucose 134 H 128 H Calcium 9.2 8.9 Liver Function 01/20/23 01/21/23 Range/Units 20:02 04:15 Total Bilirubin 0.2 0.7 (0.15-1.2) mg/dL AST 23 26 (0-40) U/L ALT 21 21 (0-41) U/L Alkaline Phosphatase 96 86 (40-130) U/L Albumin 4.0 3.7 (3.5-5.2) g/dL Cardiac Studies: Echocardiogram Ultrasound 01/30/20
[2023-01-21] MEDS: ceFAZolin 2,000 MG in sodium chloride 0.9% (plus) 50 ML 100 MG IV ×2 (08:50→17:16)
--- NOTE | 2023-01-21 09:07 | PM.PN ---
Subjective Subjective: Patient reports pain is currently well controlled. No significant pain at rest, only with movement. Encouraged bedrest until surgery. Denies fevers, chills, nausea or emesis. NPO for procedure today. Medications: Reviewed: Yes Vitals/I&O/Wt Last Vital Signs Temp 98.3 F 01/21/23 08:18 Pulse 112 H 01/21/23 08:18 Resp 17 01/21/23 08:18 BP 126/73 01/21/23 08:18 Pulse Ox 93 01/21/23 08:18 O2 Del Method Nasal Cannula 01/21/23 08:18 Weight last 48 hrs Weight 81.647 kg Physical Exam Narrative: General: Patient is awake and alert. Head: Normocephalic. Atraumatic. EOM intact. Neck: No JVD. Cardiovascular: RRR. No gallops. No murmurs. Lungs: Clear to auscultation, no use of accessory muscles, no crackles or wheezes. Skin: No jaundice. No rashes. Abdomen: Normal bowel sounds, abdomen soft and nontender. Extremities: No cyanosis or clubbing. Lower extremities are neurovascularly intact. Musculoskeletal: No erythematous joints. Neurological: Moves all 4 extremities. No myoclonus. Data 01/21/23 04:15 01/21/23 04:15 A&P Assessment and plan (1) Closed fracture of left hip: Orthopedics consulted Fall precautions Bed rest NPO for procedure IVF while NPO Multimodal pain control [place]-op abx per surgery Therapy after surgery (2) Atrial fibrillation: Hold home apixaban for surgery Continue home metoprolol (3) Hyperlipemia: Continue statin (4) COPD (chronic obstructive pulmonary disease): Not in acute exacerbation Continue to monitor Pulmonary toilet exercises after surgery Plan DVT ppx: SCD Code: Full Attestations Medical Necessity Statement*: Patient requires ongoing hospitalization for surgical evaluation, orthopedic surgical intervention, IV pain medications, IV fluids, and supportive care. Coding Level of Care Code Acute Code for Chg Fwd Diagnoses Closed fracture of left hip S72.002A Atrial fibrillation I48.91 Hyperlipemia E78.5 COPD (chronic obstructive pulmonary disease) J44.9
--- NOTE | 2023-01-21 10:49 | PC.CHAP ---
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 [] Patient/Family/Request visit [] Outpatient visit [] Follow-up visit [] Physician referral [] Code/Alert [x] Routine visit [] Staff referral [] Actively dying [] Patient sleeping [] Family support [] [] Out of room [] Palliative care [] [x] Receiving care in room [] Pre-surgical visit [] Trauma [] Long length of stay [] ICU visit [] Other: Relational/Emotional Strength [x] Patient feels connected with others/family/visitors/staff [] Distress [] Loneliness/isolation [] Abandonment Spirituality of Patient [x] Person of Monika [] Attends Amish of their Monika [x] Believes in Prayer [] Reads Bible or Restoration materials [] There are Spiritual issues to be addressed Sewing Room Supervisor Interventions [x] Prayer [x] Active listening [x] Non-anxious presence [x] Spiritual/emotional support [] Crisis/trauma care [x] Spiritual counseling [] Bereavement support [] Provided bereavement packet [] Provided Bible/devotional materials [] Provided toy/stuffed animal, coloring book to patient or family member [] Provided Communion [] Anointing/[place] [] Salvation [x] Completed spiritual assessment [] Other: Impact on Illness or Injury [] Angry [] Fearful [] Anxious [] Often cries [] Exhaustion [] Unable to work [] Unable to attend uatsdin [] Unable to walk/stand [] Unable to read [] Unable to drive [] Unable to eat/drink [] Unable to sleep [] Unable to be with family [] Patient intubated [] Other: Summary senior with staff c are +1 family well need some rehab at home with family Time spent with patient 10 mins
[2023-01-21] MEDS: albuterol 2.5 mg/3 mL Neb INHALATION ×3 (11:40→19:54)
--- NOTE | 2023-01-21 12:50 | ANE.PACU2 ---
Inpatient post-anesthesia follow up: Airway intact: Yes Vital signs: Temperature 98.3 F Pulse Rate 81 Respiratory Rate 18 Blood Pressure 129/73 Pulse Oximetry 93 Oxygen Delivery Me thod Nasal Cannula Oxygen Flow Rate 2 Fraction of Inspir ed Oxygen Hydration adequate: Yes Nausea and vomiting: No Pain level: 3 Mental status: Baseline
[2023-01-21] MEDS: ketorolac 30 mg/mL INJ IVP (14:59)
--- NOTE | 2023-01-21 16:10 | ECG_ITS ---
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 Measurements Intervals [place] Rate: 126 P: 0 NH: 0 QRS: 47 QRSD: 90 T: 91 QT: 293 QTc: 425 Interpretive Statements ATRIAL FIBRILLATION WITH RAPID VENTRICULAR RESPONSE LOW QRS VOLTAGE IN EXTREMITY LEADS [QRS DEFLECTION < 0.5 mV IN LIMB LEADS] MINIMAL ST DEPRESSION [0.025+ mV ST DEPRESSION] ABNORMAL RHYTHM ECG Compared to ECG 01/20/2023 23:43:57 Low QRS voltage now present ST (T wave) deviation now present Ventricular premature complex(es) no longer present Aberrant conduction of supraventricular beat(s) no longer present Indeterminate axis no longer present Left anterior fascicular block no longer present Electronically Signed On 01-21-2023 21:34:21 CDT by Robb Tran M.D. [email or web address]
[2023-01-21] MEDS: metoprolol tartrate 1 mg/1 mL SDV 5 mL 2.5 MG IVP (16:35)
[2023-01-21] MEDS: amlodipine 5 mg Tablet PO (17:16)
[2023-01-21] MEDS: budesonide 0.5 mg/2 mL Neb INHALATION (19:54)
[2023-01-21] MEDS: atorvastatin 40 mg Tablet PO (21:33)
[2023-01-21] MEDS: famotidine 20 mg/2 mL INJ IVP (21:33)
[2023-01-21] MEDS: sodium chloride 0.9% 1,000 ML 75 ML IV (21:40)
[2023-01-22] VITALS (15 sets, daily range): BP systolic 101–119; BP diastolic 62–81; PULSE 94–115; RESP 16–18; TEMP 36.4–36.9; O2SAT 90–97
[2023-01-22] MEDS: ceFAZolin 2,000 MG in sodium chloride 0.9% (plus) 50 ML 100 MG IV ×2 (01:41→08:59)
[2023-01-22 05:44] LABS: Basophils % 0.1 %; Hematocrit 24.4 % (37-53); Lymphocytes % 8.6 %; Mean Corpuscular HGB Conc 32.8 g/dL (30-55); Mean Corpuscular Hemoglobin 31.9 pg (27-33); Mean Corpuscular Volume 97.2 fl (82-101); Mean Platelet Volume 11.7 fL (7.4-10.4); Monocytes # 1.2 10^3/uL (0.2-0.9); Monocytes % 10.1 %; Neutrophils # 9.55 10^3/uL (1.8-7.7); Neutrophils % 80.8 %; Nucleated Red Blood Cells % 0 %; Platelet Count 147 10^3/cmm (157-399); Red Blood Count 2.51 10^6/uL (3.85-5.65); Red Cell Distribution Width 13.2 % (12.1-15.1); White Blood Count 11.81 10^3/uL (3.29-11.43)
[2023-01-22 06:14] LABS: Anion Gap 13.2 (5-19); Blood Urea Nitrogen 44 mg/dL (8-23); Calcium 8.5 mg/dL (8.5-10.5); Carbon Dioxide 24 mmol/L (22-29); Chloride 106 mmol/L (98-107); Glucose 160 mg/dL (65-115); Magnesium 1.9 mg/dL (1.7-2.3); Phosphorus 3.7 mg/dL (2.5-4.5); Potassium 4.2 mmol/L (3.5-5.1); Sodium 139 mmol/L (136-145)
--- NOTE | 2023-01-22 07:05 | PM.PN ---
Subjective Subjective: POD 1 Patient resting comfortably. Reports some mild left hip pain Vitals/I&O/Wt Last Vital Signs Temp 98.3 F 01/22/23 04:21 Pulse 95 01/22/23 04:21 Resp 16 01/22/23 04:21 BP 119/81 01/22/23 04:21 Pulse Ox 97 01/22/23 04:21 O2 Del Method Nasal Cannula 01/21/23 19:54 O2 Flow Rate 1 01/21/23 20:00 01/21/23 01/22/23 01/22/23 22:59 06:59 14:59 Intake Total 410 / 1669.5 290 / 1959.5 Output Total 375 / 425 500 / 925 Balance 35 / 1244.5 -210 / 1034.5 Weight last 48 hrs Weight 180 lb Physical Exam Narrative: Patient is alert and orient x3 has good general appearance normal normal affect. Left hip incision is clean and dry. There is no signs of erythema or drainage no signs of infection. Good motor strength throughout both lower extremities. Fires in all motor groups. Skin is clear warm, feet are warm with good cap refill in all digits. Normal sensation to light touch. Calves are supple, no medial thigh tenderness, negative Homans' sign. No palpable edema peripherally. Data 01/22/23 05:06 01/22/23 05:06 A&P Assessment and plan (1) Closed intertrochanteric fracture of left hip: Physical therapy to work with mobilization partial weightbearing left lower extremity. Continue incentive spirometer for pulmonary toilet. Follow-up in the office in 2 weeks time for staple removal. Qualifiers: Encounter type: initial encounter Fracture alignment: displaced Qualified Code(s): S72.142A - Displaced intertrochanteric fracture of left femur, initial encounter for closed fracture Attestations Medical Necessity Statement*: Defer to medical team Coding Level of Care Code Acute Code for Chg Fwd Diagnoses Closed intertrochanteric fracture of left hip S72.142A Encounter type: initial encounter Fracture alignment: displaced
[2023-01-22] MEDS: finasteride 5 mg Tablet PO (07:30)
[2023-01-22] MEDS: tamsulosin 0.4 mg Capsule PO (07:30)
[2023-01-22] MEDS: amlodipine 5 mg Tablet PO (07:31)
[2023-01-22] MEDS: metoprolol succinate ER (24 HR) 25 mg Tablet PO (07:31)
[2023-01-22] MEDS: HYDROcodone-acetaminophen 5-325 mg Tablet 1 TAB PO ×2 (07:35→13:06)
[2023-01-22] MEDS: famotidine 20 mg/2 mL INJ IVP (08:47)
[2023-01-22] MEDS: metoprolol tartrate 1 mg/1 mL SDV 5 mL 2.5 MG IVP (08:56)
--- NOTE | 2023-01-22 09:20 | PC.CHAP ---
Pastoral Care Encounter/Spiritual Assessment Type of Contact [] Declined materials assistant visit [] Patient/Family/Request visit [] Outpatient visit [] Follow-up visit [] Physician referral [] Code/Alert [x] Routine visit [] Staff referral [] Actively dying [] Patient sleeping [x] Family support [] [] Out of room [] Palliative care [] [] Receiving care in room [] Pre-surgical visit [] Trauma [] Long length of stay [] ICU visit [] Other: Relational/Emotional Strength [] Patient feels connected with others/family/visitors/staff [x] Distress [] Loneliness/isolation [] Abandonment Spirituality of Patient [] Person of Monika [] Attends Yarsanism of their Monika [] Believes in Prayer [] Reads Bible or Anabaptism materials [x] There are Spiritual issues to be addressed Sat[employer] Interventions [] Prayer [x] Active listening [] Non-anxious presence [] Spiritual/emotional support [] Crisis/trauma care [] Spiritual counseling [] Bereavement support [] Provided bereavement packet [] Provided Bible/devotional materials [] Provided toy/stuffed animal, coloring book to patient or family member [] Provided Communion [] Anointing/[place] [] Salvation [x] Completed spiritual assessment [] Other: Impact on Illness or Injury [] Angry [] Fearful [] Anxious [] Often cries [] Exhaustion [] Unable to work [] Unable to attend yazdanism [] Unable to walk/stand [] Unable to read [] Unable to drive [] Unable to eat/drink [] Unable to sleep [] Unable to be with family [] Patient intubated [] Other: Summary Time spent with patient 5 min
--- NOTE | 2023-01-22 10:02 | PM.PN ---
Subjective Subjective: Patient states pain is well controlled. Denies fevers or chills. Denies nausea or emesis. Denies bowel movement since surgery. Has not been out of bed yet but anticipates working with therapy today. Medications: Reviewed: Yes Vitals/I&O/Wt Last Vital Signs Temp 97.8 F 01/22/23 07:52 Pulse 97 01/22/23 07:52 Resp 18 01/22/23 07:52 BP 114/71 01/22/23 07:52 Pulse Ox 92 01/22/23 07:52 O2 Del Method Nasal Cannula 01/22/23 07:52 O2 Flow Rate 1 01/21/23 20:00 01/21/23 01/22/23 01/22/23 22:59 06:59 14:59 Intake Total 410 / 1669.5 290 / 1959.5 480 / 480 Output Total 375 / 425 500 / 925 Balance 35 / 1244.5 -210 / 1034.5 480 / 480 Weight last 48 hrs Weight 81.647 kg Physical Exam Narrative: General: Patient is awake and alert. Pleasant. Head: Normocephalic. Atraumatic. EOM intact. Neck: No JVD. Cardiovascular: RRR. No gallops. No murmurs. Lungs: Clear to auscultation, no use of accessory muscles, no crackles or wheezes. Skin: No jaundice. No rashes. Abdomen: Normal bowel sounds, abdomen soft and nontender. Extremities: No cyanosis or clubbing. Musculoskeletal: No erythematous joints. Neurological: Moves all 4 extremities. No myoclonus. Data 01/22/23 05:06 01/22/23 05:06 A&P Assessment and plan (1) Closed fracture of left hip: Status post surgery on 01/21 Fall precautions Discontinue IVF Start therapy Multimodal pain control, wean off IV pain meds as tolerated [place]-op abx per surgery Bowel regimen (2) Atrial fibrillation: Post-op course c/b atrial fibrillation with rapid ventricular rate Required IVP metoprolol this morning Increase home metoprolol succinate to 50 mg daily Hold home apixaban, possibly restart on Wednesday (3) Hyperlipemia: Continue statin (4) COPD (chronic obstructive pulmonary disease): Not in acute exacerbation Continue to monitor Pulmonary toilet IS (5) Acute blood loss anemia: 2/2 surgery loss Transfuse 1 pRBC Repeat CBC in AM (6) HTN (hypertension) with goal to be determined: Hold Norvasc while increasing metoprolol dosing Plan DVT ppx: SCD Code: Full Attestations Medical Necessity Statement*: Patient requires ongoing hospitalization for pain control, therapy, blood transfusion, and supportive care Coding Level of Care Code Acute Code for Chg Fwd Diagnoses Closed fracture of left hip S72.002A Atrial fibrillation I48.91 Hyperlipemia E78.5 COPD (chronic obstructive pulmonary disease) J44.9 Acute blood loss anemia D62 HTN (hypertension) with goal to be determined I10
[2023-01-22] MEDS: albuterol 2.5 mg/3 mL Neb INHALATION ×3 (11:03→20:45)
--- NOTE | 2023-01-22 11:08 | PC.SOCIAL ---
Pg 2 IMM Explained to pt Pg 2 IMM. No questions voiced. Provided pt a copy. Initialed, dated , & timed a copy & placed in chart.
[2023-01-22] MEDS: pantoprazole DR 40 mg Tablet PO (11:09)
[2023-01-22] MEDS: sodium chloride 0.9% 100 mL Bag 50 ML IV (13:07)
[2023-01-22] MEDS: sennosides-docusate Tablet 2 TAB PO (18:39)
[2023-01-22] MEDS: psyllium powder Pkt 1 PACKET PO (18:39)
[2023-01-22] MEDS: atorvastatin 40 mg Tablet PO (20:17)
[2023-01-22] MEDS: budesonide 0.5 mg/2 mL Neb INHALATION (20:45)
[2023-01-23] VITALS (9 sets, daily range): BP systolic 117–145; BP diastolic 62–82; PULSE 94–107; RESP 16–18; TEMP 36.5–37.2; O2SAT 90–95
[2023-01-23 04:02] LABS: Basophils % 0.1 %; Eosinophils % 0.5 %; Hematocrit 25.5 % (37-53); Lymphocytes # 1.5 10^3/uL (0.8-4.8); Lymphocytes % 16.9 %; Mean Corpuscular HGB Conc 33.7 g/dL (30-55); Mean Corpuscular Hemoglobin 32.3 pg (27-33); Mean Corpuscular Volume 95.9 fl (82-101); Mean Platelet Volume 11.5 fL (7.4-10.4); Monocytes # 1.1 10^3/uL (0.2-0.9); Monocytes % 12.8 %; Neutrophils # 6.06 10^3/uL (1.8-7.7); Neutrophils % 68.9 %; Nucleated Red Blood Cells % 0 %; Platelet Count 140 10^3/cmm (157-399); Red Blood Count 2.66 10^6/uL (3.85-5.65); Red Cell Distribution Width 14.5 % (12.1-15.1)
[2023-01-23 04:15] LABS: Albumin Level 2.9 g/dL (3.5-5.2); Anion Gap 12.8 (5-19); Blood Urea Nitrogen 44 mg/dL (8-23); Calcium 8.5 mg/dL (8.5-10.5); Carbon Dioxide 23 mmol/L (22-29); Chloride 106 mmol/L (98-107); Glucose 110 mg/dL (65-115); Phosphorus 2.6 mg/dL (2.5-4.5); Potassium 3.8 mmol/L (3.5-5.1); Sodium 138 mmol/L (136-145)
[2023-01-23] MEDS: finasteride 5 mg Tablet PO (08:07)
[2023-01-23] MEDS: metoprolol succinate ER (24 HR) 50 mg Tablet PO (08:07)
[2023-01-23] MEDS: sennosides-docusate Tablet 2 TAB PO ×2 (08:07→17:07)
[2023-01-23] MEDS: tamsulosin 0.4 mg Capsule PO (08:07)
[2023-01-23] MEDS: pantoprazole DR 40 mg Tablet PO (08:07)
[2023-01-23] MEDS: HYDROcodone-acetaminophen 5-325 mg Tablet 1 TAB PO ×2 (08:07→15:19)
--- NOTE | 2023-01-23 08:37 | PM.PN ---
Subjective Subjective: Patient states pain is controlled at rest. He is satisfied with pain regimen. He endorses significant weakness and trouble ambulating. Denies fevers, chills, nausea, or chest pain. He wanted to go home today, but there is concern he may require additional assistance for himself. 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 Medications: Reviewed: Yes Vitals/I&O/Wt Last Vital Signs Temp 98.2 F 01/23/23 04:00 Pulse 107 H 01/23/23 04:00 Resp 16 01/23/23 04:00 BP 117/80 01/23/23 04:00 Pulse Ox 90 01/23/23 04:00 O2 Del Method Room Air 01/23/23 04:00 O2 Flow Rate 2 01/22/23 15:05 01/22/23 01/23/23 01/23/23 22:59 06:59 14:59 Intake Total 620 / 2680 Output Total 400 / 400 300 / 700 Balance 220 / 2280 -300 / 1980 Physical Exam Narrative: General: Patient is awake and alert. In bed. Head: Normocephalic. Atraumatic. EOM intact. Neck: No JVD. Cardiovascular: RRR. No gallops. No murmurs. Lungs: Clear to auscultation, no use of accessory muscles, no crackles or wheezes. Skin: No jaundice. No rashes. Abdomen: Normal bowel sounds, abdomen soft and nontender. Extremities: No cyanosis or clubbing. Musculoskeletal: No erythematous joints. Neurological: Moves all 4 extremities. No myoclonus. Data 01/23/23 03:40 01/23/23 03:40 A&P Assessment and plan (1) Closed fracture of left hip: Status post surgery on 01/21 Fall precautions Continue therapy Analgesics as needed Bowel regimen (2) Acute blood loss anemia: 2/2 surgery loss Restarting anticoagulation Recheck hemoglobin in AM (3) Atrial fibrillation: Continue metoprolol at current dose (home dose has been increased) Restart apixaban (4) Hyperlipemia: Continue statin (5) COPD (chronic obstructive pulmonary disease): Not in acute exacerbation Continue to monitor Pulmonary toilet IS (6) HTN (hypertension) with goal to be determined: Holding Norvasc, may consider increasing metoprolol again pending BP and HR Plan DVT ppx: Apixaban Code: Full Attestations Medical Necessity Statement*: Patient requires ongoing hospitalization for pain control, therapy, and supportive care. Coding Level of Care Code Acute Code for Chg Fwd Diagnoses Closed fracture of left hip S72.002A Acute blood loss anemia D62 Atrial fibrillation I48.91 Hyperlipemia E78.5 COPD (chronic obstructive pulmonary disease) J44.9 HTN (hypertension) with goal to be determined I10
[2023-01-23] MEDS: albuterol 2.5 mg/3 mL Neb INHALATION ×2 (12:04→15:36)
[2023-01-23] MEDS: ferrous sulfate EC 325 mg Tablet PO (13:00)
[2023-01-23] MEDS: apixaban 5 mg Tablet PO ×2 (13:00→20:20)
[2023-01-23] MEDS: atorvastatin 40 mg Tablet PO (20:20)
[2023-01-24] VITALS (10 sets, daily range): BP systolic 129–147; BP diastolic 83–95; PULSE 84–114; RESP 17–19; TEMP 36.4–37.1; O2SAT 93–100
[2023-01-24] MEDS: HYDROcodone-acetaminophen 5-325 mg Tablet 1 TAB PO ×2 (03:51→08:03)
[2023-01-24 05:16] LABS: Basophils % 0.4 %; Eosinophils # 0.1 10^3/uL (0.0-0.8); Eosinophils % 1.7 %; Hematocrit 25.9 % (37-53); Lymphocytes # 1.3 10^3/uL (0.8-4.8); Lymphocytes % 17.2 %; Mean Corpuscular HGB Conc 33.2 g/dL (30-55); Mean Corpuscular Hemoglobin 32.2 pg (27-33); Mean Platelet Volume 11.3 fL (7.4-10.4); Monocytes # 0.9 10^3/uL (0.2-0.9); Monocytes % 12.2 %; Neutrophils # 5.08 10^3/uL (1.8-7.7); Neutrophils % 67.6 %; Nucleated Red Blood Cells % 0 %; Platelet Count 150 10^3/cmm (157-399); Red Blood Count 2.67 10^6/uL (3.85-5.65); White Blood Count 7.52 10^3/uL (3.29-11.43)
[2023-01-24 05:54] LABS: Albumin Level 2.8 g/dL (3.5-5.2); Anion Gap 10.6 (5-19); Blood Urea Nitrogen 33 mg/dL (8-23); Calcium 8.8 mg/dL (8.5-10.5); Carbon Dioxide 24 mmol/L (22-29); Chloride 104 mmol/L (98-107); Glucose 106 mg/dL (65-115); Phosphorus 2.5 mg/dL (2.5-4.5); Potassium 3.6 mmol/L (3.5-5.1); Sodium 135 mmol/L (136-145)
[2023-01-24] MEDS: albuterol 2.5 mg/3 mL Neb INHALATION (07:31)
[2023-01-24] MEDS: budesonide 0.5 mg/2 mL Neb INHALATION ×2 (07:31→20:15)
[2023-01-24] MEDS: pantoprazole DR 40 mg Tablet PO (08:03)
[2023-01-24] MEDS: metoprolol succinate ER (24 HR) 50 mg Tablet PO ×2 (08:03→11:12)
[2023-01-24] MEDS: sennosides-docusate Tablet 2 TAB PO ×2 (08:03→18:32)
[2023-01-24] MEDS: apixaban 5 mg Tablet PO ×2 (08:04→20:22)
[2023-01-24] MEDS: psyllium powder Pkt 1 PACKET PO (08:04)
[2023-01-24] MEDS: tamsulosin 0.4 mg Capsule PO (08:04)
[2023-01-24] MEDS: finasteride 5 mg Tablet PO (08:04)
--- NOTE | 2023-01-24 11:55 | P.PN_ITS ---
Subjective Subjective: Patient denies pain at rest. Reports pain with exertion. Discussed him requesting analgesic prior to exertion and therapy which he agrees with. Endorses continued constipation despite increased bowel regimen. He does not want regimen further increased, feels he will have bowel movement soon. Denies fevers, chills, chest pain or shortness of breath. Heart rate remains uncontrolled with exertion. He reports history of a mass in his heart which he thinks is related to his rapid heart rate. He states he was told the mass was there by a heart doctor here several years ago. Spouse remains bedside. Medications: Reviewed: Yes Vitals/I&O/Wt Last Vital Signs Temp 98 F 01/24/23 07:57 Pulse 114 H 01/24/23 07:57 Resp 18 01/24/23 07:57 BP 147/95 01/24/23 07:57 Pulse Ox 93 01/24/23 07:57 O2 Del Method Room Air 01/24/23 07:57 O2 Flow Rate 2 01/22/23 15:05 01/23/23 01/24/23 01/24/23 22:59 06:59 14:59 Intake Total 720 / 1920 480 / 480 Output Total 850 / 1350 850 / 2200 300 / 300 Balance -130 / 570 -850 / -280 180 / 180 Physical Exam Narrative: General: Patient is awake and alert. In bed. Head: Normocephalic. Atraumatic. EOM intact. Neck: No JVD. Cardiovascular: Tachycardic. No gallops. No heaves Lungs: Clear to auscultation, no use of accessory muscles, no crackles or wheez es. Skin: No jaundice. No rashes. Abdomen: Normal bowel sounds, abdomen soft and nontender. Extremities: No cyanosis or clubbing. Musculoskeletal: No erythematous joints. Neurological: Moves all 4 extremities. No myoclonus. 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, his goal was to return phi e with , unfortunately he has not progressed to safely do so, will proceed with SNF referrals on Wednesday Analgesics as needed Bowel regimen, monitoring closely (2) Acute blood loss anemia: 2/2 surgery loss S/p 1 pRBC since admission Stabilized, monitor PRN (3) Atrial fibrillation: Heart rate remains uncontrolled with RVR, exacerbated by exertion Increasing home metoprolol dose again today Continue apixaban for stroke ppx Telemetry monitoring Electrolyte monitoring (4) Cardiac mass: Pt reports hx of cardiac mass, chart review raises suspicion for myxoma Echo in 01/2020 showed the mass to be 2.0 x 1.9 cm TTE and NALINI showed same mass in 2017 Does not appears he is still following with cardiology, last seen 02/2020 Limited echocardiogram ordered due to persistent heart rate issues (5) Hyperlipemia: Continue statin (6) COPD (chronic obstructive pulmonary disease): Not in acute exacerbation Continue to monitor Pulmonary toilet IS (7) HTN (hypertension) with goal to be determined: Holding Norvasc while uptitrating metoprolol as to avoid hypotension Monitor BP closely Plan DVT ppx: Apixaban Code: Full Attestations Medical Necessity Statement*: Patient requires ongoing hospitalization for pain control, titration of heart rate medications, therapy, and supportive care. Coding Level of Care Code Acute Code for Chg Fwd Diagnoses Closed fracture of left hip S72.002A Acute blood loss anemia D62 Atrial fibrillation I48.91 Cardiac mass I51.89 Hyperlipemia E78.5 COPD (chronic obstructive pulmonary disease) J44.9 HTN (hypertension) with goal to be determined I10
--- NOTE | 2023-01-24 11:58 | USCV_ITS ---
Abimael Santillan Age: 77 Gender: M : 1945 Exam Date: 01/24/2023 12:31 Ordering Phys: Dick Sharma MD Technologist: Aureliano Beavers Exam Location: [facility] [place]_ Indication: evaluate cardiac mass BP: 147 / 95 HR: 96 Rhythm: Sinus Technical Quality: Adequate MEASUREMENTS (Male / Female) Normal Values 2D ECHO LVOT Diameter 2.1 cm LV Ejection Fraction MOD 2C 71.3 % LV Ejection Fraction 2C AL 72.6 % LA Diameter 3.4 cm Aorta at Sinotubular Diameter 3.0 cm M-MODE Aortic Annulus Diameter 3.7 cm LA Ao Ratio MM 1.0 MV E Point Septal Separation 0.1 cm DOPPLER Right Atrial Pressure 8.0 mmHg FINDINGS Left Ventricle Possibly normal LV size ejection fraction of around 70%. No gross wall motion normalities noted. Segmental wall motion analysis difficult because of poor ultrasonic window. Right Ventricle Possibly of normal size ejection fraction. Not visualized properly Right Atrium There is an oval echogenic mass in the right atrium close to the tricuspid annulus measuring 3.1 x 2.4 cm Left Atrium Possibly of normal size Mitral Valve No gross abnormalities noted Aortic Valve Thickened aortic valve. Tricuspid Valve Tricuspid valve not well visualized. Pulmonic Valve Pulmonic valve not well visualized. Pericardium No pericardial effusion. Aorta Normal aortic annulus size. IVC Inferior vena cava not visualized. CONCLUSIONS Possibly normal LV size ejection fraction of around 70%. No gross wall motion normalities noted. Segmental wall motion analysis difficult because of poor ultrasonic window. There is an oval mass echogenic mass in the right atrium close to the tricuspid annulus measuring 3.1 x 2.4 cm. Thickened aortic valve. There is no pericardial effusion. Compared to the study from 11/20/2019, the mass has increased in size from 2.0 x 1.9 cm to the current size Technically somewhat limited study because of the poor visualization of the right-sided structures Dr. Sharma was informed about this findings Dr Robb Tran MD [facility] (Electronically Signed) Final Date: 24 January 2023 18:56 S
[2023-01-24] MEDS: potassium chloride ER 20 mEq Tablet 40 MEQ PO (13:30)
[2023-01-24] MEDS: acetaminophen 500 mg Tablet 1000 MG PO ×2 (13:30→20:21)
[2023-01-24] MEDS: oxyCODONE 5 mg IR Tab/Cap PO (15:52)
[2023-01-24] MEDS: atorvastatin 40 mg Tablet PO (20:21)
[2023-01-25] VITALS (8 sets, daily range): BP systolic 135–156; BP diastolic 80–88; PULSE 79–115; RESP 16–21; TEMP 36.4–37.2; O2SAT 93–98
[2023-01-25] MEDS: acetaminophen 500 mg Tablet 1000 MG PO ×3 (04:17→20:25)
[2023-01-25 05:22] LABS: Basophils % 0.4 %; Eosinophils # 0.2 10^3/uL (0.0-0.8); Eosinophils % 2.6 %; Hematocrit 27.7 % (37-53); Lymphocytes # 1.3 10^3/uL (0.8-4.8); Lymphocytes % 14.6 %; Mean Corpuscular HGB Conc 32.9 g/dL (30-55); Mean Corpuscular Hemoglobin 32.2 pg (27-33); Mean Corpuscular Volume 97.9 fl (82-101); Mean Platelet Volume 11.2 fL (7.4-10.4); Monocytes # 0.9 10^3/uL (0.2-0.9); Neutrophils # 6.01 10^3/uL (1.8-7.7); Neutrophils % 70.2 %; Nucleated Red Blood Cells % 0 %; Platelet Count 189 10^3/cmm (157-399); Red Blood Count 2.83 10^6/uL (3.85-5.65); Red Cell Distribution Width 13.7 % (12.1-15.1); White Blood Count 8.55 10^3/uL (3.29-11.43)
[2023-01-25 05:44] LABS: Albumin Level 2.9 g/dL (3.5-5.2); Anion Gap 12.9 (5-19); Blood Urea Nitrogen 32 mg/dL (8-23); Calcium 8.9 mg/dL (8.5-10.5); Carbon Dioxide 24 mmol/L (22-29); Chloride 106 mmol/L (98-107); Glucose 112 mg/dL (65-115); Phosphorus 2.6 mg/dL (2.5-4.5); Potassium 3.9 mmol/L (3.5-5.1); Sodium 139 mmol/L (136-145)
[2023-01-25] MEDS: tamsulosin 0.4 mg Capsule PO (08:30)
[2023-01-25] MEDS: ferrous sulfate EC 325 mg Tablet PO (08:30)
[2023-01-25] MEDS: finasteride 5 mg Tablet PO (08:30)
[2023-01-25] MEDS: oxyCODONE 5 mg IR Tab/Cap PO (08:30)
[2023-01-25] MEDS: apixaban 5 mg Tablet PO ×2 (08:30→20:25)
[2023-01-25] MEDS: sennosides-docusate Tablet 2 TAB PO (08:30)
[2023-01-25] MEDS: pantoprazole DR 40 mg Tablet PO (08:30)
[2023-01-25] MEDS: metoprolol succinate ER (24 HR) 100 mg Tablet PO ×2 (08:31→20:25)
[2023-01-25] MEDS: budesonide 0.5 mg/2 mL Neb INHALATION (08:48)
--- NOTE | 2023-01-25 12:02 | PC.SOCIAL ---
IMM Update pg 2 of IMM updated and reviewed w/ patient. Copy provided and copy dated, initialed and placed in chart.
--- NOTE | 2023-01-25 14:46 | PM.PN ---
Subjective Subjective: No new complaints today. States she is overwhelmed at the thought of returning home. He is afraid that he may fall as he is unsteady on his feet. Left lower extremity noted to be slightly swollen which is the surgical site. Hemoglobin stable at 9.1. Medications: Reviewed: Yes Vitals/I&O/Wt Last Vital Signs Temp 97.9 F 01/25/23 12:00 Pulse 97 01/25/23 12:00 Resp 18 01/25/23 12:00 BP 156/88 01/25/23 12:00 Pulse Ox 94 01/25/23 12:00 O2 Del Method Room Air 01/25/23 08:00 O2 Flow Rate 2 01/22/23 15:05 01/24/23 01/25/23 01/25/23 22:59 06:59 14:59 Intake Total 720 / 1720 240 / 240 Output Total 250 / 850 450 / 1300 Balance 470 / 870 -450 / 420 240 / 240 Physical Exam Narrative: General: No acute distress, AO x3 HEENT: PERRLA, pupils bilaterally equal and reactive, pallors not present Chest: Normal vesicular breath sounds, no added sounds, equal good air entry bilaterally CVS: S1-S2 regular, no murmurs, no tachycardia, no gallops, no rubs Abdomen: Soft, nontender, no organomegaly, bowel sounds present Neuro: No focal deficits, no facial deformity, AO x3, power 5/5 in all limbs Extremities: LLE swelling + Data 01/25/23 04:29 01/25/23 04:29 A&P Assessment and plan (1) Closed fracture of left hip: Plan 77-year-old male with history of atrial fibrillation on Eliquis hypertension hyperlipidemia BPH had a mechanical fall at home leading to left intertrochanteric hip fracture. # Now s/p ORIF on 01/21/23 with orthopedics. Eliquis held briefly. It appears previously patient was on 5 mg p.o. daily. New left lower extremity swelling, will check lower extremity Doppler to evaluate for possible DVT, orion appears to be less likely given that patient is chronically on Eliquis. 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 PT notes reviewed, recommended home with home health versus SNF. Patient currently leaning towards home but nervous about the discharge. We will update patient's family today per his request. # (2) Acute blood loss anemia: 2/2 surgery loss S/p 1 pRBC since admission (3) Atrial fibrillation: Heart rate remains better controlled this morning. Continue metoprolol Continue apixaban for stroke ppx Telemetry monitoring Electrolyte monitoring (4) Cardiac mass: Pt reports hx of cardiac mass, chart review raises suspicion for myxoma Echo in 01/2020 showed the mass to be 2.0 x 1.9 cm Limited echocardiogram taken yesterday shows echogenic mass in the right atrium close to the tricuspid annulus measuring 3.1 x 2.4 cm, increased in size over previous. Encouraged to reestablish care with cardiology as outpatient. (5) Hyperlipemia: Continue statin (6) COPD (chronic obstructive pulmonary disease): Not in acute exacerbation Continue to monitor Pulmonary toilet IS (7) HTN Holding Norvasc while uptitrating metoprolol as to avoid hypotension Monitor BP closely DVT prophylaxis: Currently back on Eliquis. Attestations Medical Necessity Statement*: Lower extremity Doppler today to evaluate for possible DVT. Coding Level of Care Code Acute Code for Chg Fwd Diagnoses Closed fracture of left hip S72.002A
--- NOTE | 2023-01-25 14:50 | USCV_ITS ---
Abimael Santillan Age: 77 Gender: M : 1945 Exam Date: 01/25/2023 18:09 Ordering Phys: Susan Sánchez MD Technologist: MARKY Exam Location: [facility] [place] Indication: LLE edema s/p LT hip surgery one week ago. No history of DVT per patient. HISTORY: LLE edema s/p LT hip surgery one week ago. No history of DVT per patient. PROCEDURES: Venous duplex imaging was performed in only the left lower extremity. The following venous structures were evaluated: common femoral vein, profunda vein, proximal portion of the greater saphenous vein, superficial femoral vein, and the popliteal vein. In addition, the posterior tibial veins were evaluated. Serial compression, augmentation maneuvers, and spectral Doppler flow evaluation were performed, which were normal. On the left side, the common femoral, superficial femoral, profunda femoral, popliteal, posterior tibial, and greater saphenous veins were identified and interrogated in the standard fashion. These veins were found to be easily compressible with spontaneous blood flow. No evidence of thrombus noted. CONCLUSIONS No evidence of left lower extremity DVT. Caio Stuart MD (Electronically Signed) Final Date: 26 January 2023 09:48 S
[2023-01-25] MEDS: atorvastatin 40 mg Tablet PO (20:25)
[2023-01-26 04:00] VITALS: BP 155/85; PULSE 95; RESP 17; TEMP 36.8; O2SAT 93
[2023-01-26] MEDS: acetaminophen 500 mg Tablet 1000 MG PO (04:23)
[2023-01-26 05:54] LABS: Basophils % 0.5 %; Eosinophils # 0.3 10^3/uL (0.0-0.8); Eosinophils % 3.6 %; Hematocrit 28.7 % (37-53); Lymphocytes # 1.1 10^3/uL (0.8-4.8); Lymphocytes % 12.8 %; Mean Corpuscular HGB Conc 32.1 g/dL (30-55); Mean Corpuscular Hemoglobin 31.7 pg (27-33); Mean Platelet Volume 10.5 fL (7.4-10.4); Monocytes # 0.9 10^3/uL (0.2-0.9); Neutrophils # 6.08 10^3/uL (1.8-7.7); Neutrophils % 71.5 %; Nucleated Red Blood Cells % 0 %; Platelet Count 205 10^3/cmm (157-399); Red Cell Distribution Width 13.7 % (12.1-15.1); White Blood Count 8.51 10^3/uL (3.29-11.43)
[2023-01-26 06:17] LABS: Alanine Aminotransferase 6 U/L (0-41); Alkaline Phosphatase 79 U/L (40-130); Anion Gap 13.5 (5-19); Aspartate Amino Transferase 21 U/L (0-40); Blood Urea Nitrogen 31 mg/dL (8-23); Calcium 8.8 mg/dL (8.5-10.5); Carbon Dioxide 25 mmol/L (22-29); Chloride 108 mmol/L (98-107); Glucose 118 mg/dL (65-115); Osmolality Calculated 302 mOsm/kg (285-295); Potassium 4.5 mmol/L (3.5-5.1); Sodium 142 mmol/L (136-145); Total Bilirubin 0.8 mg/dL (0.15-1.2)
[2023-01-26 07:30] VITALS: BP 148/94; PULSE 94; RESP 17; TEMP 36.4; O2SAT 93
[2023-01-26 08:36] VITALS: PULSE 96; RESP 18; O2SAT 95
[2023-01-26] MEDS: tamsulosin 0.4 mg Capsule PO (08:40)
[2023-01-26] MEDS: psyllium powder Pkt 1 PACKET PO (08:40)
[2023-01-26] MEDS: pantoprazole DR 40 mg Tablet PO (08:40)
[2023-01-26] MEDS: apixaban 5 mg Tablet PO (08:40)
[2023-01-26] MEDS: finasteride 5 mg Tablet PO (08:41)
[2023-01-26] MEDS: sennosides-docusate Tablet 2 TAB PO (08:41)
[2023-01-26] MEDS: metoprolol succinate ER (24 HR) 100 mg Tablet PO (08:41)
--- NOTE | 2023-01-26 09:54 | P.TS_ITS ---
Transfer Summary Providers Date of Admission: 01/20/23 20:57 Date of Discharge/Transfer: 01/26/23 Attending Provider at Admission: Morelia Seaman MD Attending Provider at Transfer: Susan Sánchez MD Primary Care Provider: KETAN Cole Transfer Plans: Anticipated date of transfer: 01/26/23 . Diagnoses at Discharge Discharge Diagnosis (1) Closed fracture of left hip: Status: Acute Reason for Visit Reason for Visit fall, left hip pain Brief History: Abimael Santillan is a 77 year old male with history of atrial fibrillation on Eliquis hypertension hyperlipidemia BPH presented after mechanical fall at home leading to left intertrochanteric hip fracture. Hospital course as below: Hospital Course Hospital Course #left intertrochanteric hip fracture Now s/p ORIF on 01/21/23 with orthopedics. Eliquis held briefly.? It appears previously patient was on 5 mg p.o. daily. 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 Pain is currently well controlled # (2) Acute blood loss anemia: likely due to surgery loss S/p 1 pRBC since admission currently Hb stable at 9.2 (3) Atrial fibrillation: Heart rate currently controlled. 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 Encouraged to reestablish care with cardiology as outpatient.?Was previously followed by Dr. Xiong (5) Hyperlipemia: Continue statin (6) COPD (chronic obstructive pulmonary disease): Not in acute exacerbation Continue to monitor Pulmonary toilet IS Physical Exam Narrative: General: No acute distress, AO x3 HEENT: PERRLA, pupils bilaterally equal and reactive, pallors not present Chest: Normal vesicular breath sounds, no added sounds, equal good air entry bilaterally CVS: S1-S2 regular, no murmurs, no tachycardia, no gallops, no rubs Abdomen: Soft, nontender, no organomegaly, bowel sounds present Neuro: No focal deficits, no facial deformity, AO x3, power 5/5 in all limbs Extremities: Healthy surgical dressing present on the left hip, mild tenderness, soft no erythema. TS Data Studies Completed and Pending Labs from last 24 hours 01/26/23 01/26/23 05:34 05:34 WBC 8.51 RBC 2.90 L Hgb 9.20 L Hct 28.7 L MCV 99.0 MCH 31.7 MCHC 32.1 RDW 13.7 Plt Count 205 MPV 10.5 H Neut % (Auto) 71.5 Lymph % (Auto) 12.8 [place] % (Auto) 11.0 Eos % (Auto) 3.6 Baso % (Auto) 0.5 Neut # (Auto) 6.08 Lymph # (Auto) 1.1 [place] # (Auto) 0.9 Eos # (Auto) 0.3 Baso # (Auto) 0.0 Nucleated RBC % (auto) 0 Nucleated RBCs # 0.0 Sodium 142 Potassium 4.5 Chloride 108 H Carbon Dioxide 25 Anion Gap 13.5 BUN 31 H Creatinine 1.2 GFR Calculation Not Reportable Glucose 118 H Calculated Osmolality 302 H Calcium 8.8 Total Bilirubin 0.8 AST 21 ALT 6 Alkaline Phosphatase 79 Total Protein 6.0 L Albumin 3.0 L Globulin 3.0 Completed Studies During Hospitalization Category Date Time Status XR chest 1V portable [id number] Stat Exams 01/20/23 19:39 Completed XR femur LT min 2V* [id number] Routine Exams 01/21/23 Completed XR hip LT 2-3V wo/w pel* [id number] Stat Exams 01/20/23 19:39 [place] [id number] Routine Ultrasound 01/25/23 14:50 Completed CV. echo limited [id number] Routine Ultrasound 01/24/23 11:58 Completed Laboratory Last Values WBC 8.51 10^3/uL (3.29-11.43) 01/26/23 05:34 RBC 2.90 10^6/uL (3.85-5.65) L 01/26/23 05:34 Hgb 9.20 g/dL (11.27-16.99) L 01/26/23 05:34 Hct 28.7 % (37-53) L 01/26/23 05:34 MCV 99.0 fl (82-101) 01/26/23 05:34 MCH 31.7 pg (27-33) 01/26/23 05:34 MCHC 32.1 g/dL (30-55) 01/26/23 05:34 RDW 13.7 % (12.1-15.1) 01/26/23 05:34 Plt Count 205 10^3/cmm (157-399) 01/26/23 05:34 MPV 10.5 fL (7.4-10.4) H 01/26/23 05:34 Neut % (Auto) 71.5 % 01/26/23 05:34 Lymph % (Auto) 12.8 % 01/26/23 05:34 [place] % (Auto) 11.0 % 01/26/23 05:34 Eos % (Auto) 3.6 % 01/26/23 05:34 Baso % (Auto) 0.5 % 01/26/23 05:34 Neut # (Auto) 6.08 10^3/uL (1.8-7.7) 01/26/23 05:34 Lymph # (Auto) 1.1 10^3/uL (0.8-4.8) 01/26/23 05:34 [place] # (Auto) 0.9 10^3/uL (0.2-0.9) 01/26/23 05:34 Eos # (Auto) 0.3 10^3/uL (0.0-0.8) 01/26/23 05:34 Baso # (Auto) 0.0 10^3/uL (0.0-0.1) 01/26/23 05:34 Nucleated RBC % (auto) 0 % 01/26/23 05:34 Nucleated RBCs # 0.0 /100WBC 01/26/23 05:34 Sodium 142 mmol/L (136-145) 01/26/23 05:34 Potassium 4.5 mmol/L (3.5-5.1) 01/26/23 05:34 Chloride 108 mmol/L (98-107) H 01/26/23 05:34 Carbon Dioxide 25 mmol/L (22-29) 01/26/23 05:34 Anion Gap 13.5 (5-19) 01/26/23 05:34 BUN 31 mg/dL (8-23) H 01/26/23 05:34 Creatinine 1.2 mg/dL (0.7-1.2) 01/26/23 05:34 GFR Calculation Not Reportable 01/26/23 05:34 Glucose 118 mg/dL (65-115) H 01/26/23 05:34 Calculated Osmolality 302 mOsm/kg (285-295) H 01/26/23 05:34 Calcium 8.8 mg/dL (8.5-10.5) 01/26/23 05:34 Phosphorus 2.6 mg/dL (2.5-4.5) 01/25/23 04:29 Magnesium 2.0 mg/dL (1.7-2.3) 01/24/23 04:35 Total Bilirubin 0.8 mg/dL (0.15-1.2) 01/26/23 05:34 AST 21 U/L (0-40) 01/26/23 05:34 ALT 6 U/L (0-41) 01/26/23 05:34 Alkaline Phosphatase 79 U/L (40-130) 01/26/23 05:34 Total Protein 6.0 g/dL (6.6-8.7) L 01/26/23 05:34 Albumin 3.0 g/dL (3.5-5.2) L 01/26/23 05:34 Globulin 3.0 g/dL (1.3-4.6) 01/26/23 05:34 Blood Type O Positive 01/22/23 08:14 Rho(D) Type Positive 01/22/23 08:14 Antibody Screen Negative 01/22/23 08:14 Crossmatch See Detail 01/22/23 08:14 Radiology Impressions Chest X-Ray 01/20/23 19:39 IMPRESSION: No acute findings. Hip/Pelvis X-Ray 01/20/23 19:39 IMPRESSION: Intertrochanteric left hip fracture with foreshortening. Recent Clincial Data Last Vital Signs Temp 97.5 F L 01/26/23 07:30 Pulse 96 01/26/23 08:36 Resp 18 01/26/23 08:36 BP 148/94 01/26/23 07:30 Pulse Ox 95 01/26/23 08:36 O2 Del Method Room Air 01/26/23 08:36 O2 Flow Rate 2 01/22/23 15:05 Vital Signs Temp Pulse Resp BP Pulse Ox O2 Del Method 01/26/23 08:36 96 18 95 Room Air 01/26/23 07:30 97.5 F L 94 17 148/94 93 01/26/23 04:00 98.3 F 95 17 155/85 93 01/25/23 23:56 98.3 F 84 17 151/82 96 Intake & Output/Weight 01/24/23 01/25/23 01/26/23 01/27/23 06:59 06:59 06:59 06:59 Intake Total 1920 / 1920 1720 / 1720 480 / 480 0 / 0 Output Total 2200 / 2200 1300 / 1300 650 / 650 Balance -280 / -280 420 / 420 -170 / -170 0 / 0 Vitals Last Vital Signs Temp 97.5 F L 01/26/23 07:30 Pulse 96 01/26/23 08:36 Resp 18 01/26/23 08:36 BP 148/94 01/26/23 07:30 Pulse Ox 95 01/26/23 08:36 O2 Del Method Room Air 01/26/23 08:36 O2 Flow Rate 2 01/22/23 15:05 TS Medications Medications Acetaminophen (Acetaminophen 500 Mg Tablet) 1,000 mg PO Q8H [facility] Last Admin: 01/26/23 04:23 Dose: 1,000 mg Albuterol Sulfate (Albuterol 2.5 Mg/3 Ml Neb) 2.5 mg INHALATION QID.RESPIRATORY PRN PRN Reason: sob Amlodipine Besylate (Amlodipine 5 Mg Tablet) 5 mg PO BID [facility] Last Admin: 01/22/23 07:31 Dose: 5 mg Apixaban (Apixaban 5 Mg Tablet) 5 mg PO BID@0900,2100 [facility] Last Admin: 01/26/23 08:40 Dose: 5 mg Atorvastatin Calcium (Atorvastatin 40 Mg Tablet) 40 mg PO BEDTIME [facility] Last Admin: 01/25/23 20:25 Dose: 40 mg Budesonide (Budesonide 0.5 Mg/2 Ml Neb) 0.5 mg INHALATION BID.RESPIRATORY [facility] Last Admin: 01/26/23 08:48 Dose: Not Given Ferrous Sulfate (Ferrous Sulfate Ec 325 Mg Tablet) 325 mg PO EVERY OTHER DAY [facility] Last Admin: 01/25/23 08:30 Dose: 325 mg Finasteride (Finasteride 5 Mg Tablet) 5 mg PO DAILY [facility] Last Admin: 01/26/23 08:41 Dose: 5 mg Metoprolol Succinate (Metoprolol Succinate Er (24 Hr) 100 Mg Tablet) 100 mg PO Q12H [facility] Last Admin: 01/26/23 08:41 Dose: 100 mg Ondansetron HCl (Ondansetron 2 Mg/Ml Sdv 2 Ml) 4 mg IVP Q8H PRN PRN Reason: vomiting, or N/V if npo Oxycodone HCl (Oxycodone 5 Mg Ir Tab/Cap) 5 mg PO Q4H PRN PRN Reason: MODERATE PAIN Last Admin: 01/25/23 08:30 Dose: 5 mg Pantoprazole Sodium (Pantoprazole Dr 40 Mg Tablet) 40 mg PO DAILY [facility] Last Admin: 01/26/23 08:40 Dose: 40 mg Psyllium Hydrophilic Mucilloid (Psyllium Powder Pkt) 1 packet PO BID [facility] Last Admin: 01/26/23 08:40 Dose: 1 packet Senna/Docusate Sodium (Sennosides-Docusate Tablet) 2 tab PO BID [facility] Last Admin: 01/26/23 08:41 Dose: 2 tab Tamsulosin HCl (Tamsulosin 0.4 Mg Capsule) 0.4 mg PO DAILY [facility] Last Admin: 01/26/23 08:40 Dose: 0.4 mg Discontinued Medications Hydrocodone Bitart/Acetaminophen (Hydrocodone-Acetaminophen 5-325 Mg Tablet) 1 tab PO Q4H PRN PRN Reason: MODERATE PAIN Last Admin: 01/24/23 08:03 Dose: 1 tab Albuterol Sulfate (Albuterol 2.5 Mg/3 Ml Neb) 2.5 mg INHALATION QID.RESPIRATORY [facility] Last Admin: 01/24/23 07:31 Dose: 2.5 mg Albuterol Sulfate (Albuterol 2.5 Mg/3 Ml Neb) 2.5 mg INHALATION ONCE PRN PRN Reason: WHEEZING Benzocaine (Cetylpyridinium Lozenge) 1 each MUCOUS MEM ONCE PRN PRN Reason: SORE THROAT Dexamethasone (Dexamethasone 4 Mg/Ml Inj) Confirm Administered Dose 4 mg .ROUTE .STK-MED ONE Stop: 01/21/23 11:06 Dexamethasone (Dexamethasone 4 Mg/Ml Inj) Confirm Administered Dose 4 mg .ROUTE .Dheere Bolo-MED ONE Stop: 01/21/23 11:06 Diphenhydramine HCl (Diphenhydramine 50 Mg/Ml Sdv 1ml) 12.5 mg IVP ONCE PRN PRN Reason: PONV Diphenhydramine HCl (Diphenhydramine 50 Mg/Ml Sdv 1ml) 12.5 mg IVP ONCE PRN PRN Reason: Postop N/V Ephedrine Sulfate (Ephedrine 50 Mg/Ml Inj) Confirm Administered Dose 50 mg .ROUTE .Dheere Bolo-MED ONE Stop: 01/21/23 11:28 Famotidine (Famotidine 20 Mg/2 Ml Inj) 20 mg IVP Q12H [facility] Last Admin: 01/22/23 08:47 Dose: 20 mg Famotidine (Famotidine 20 Mg/2 Ml Inj) 20 mg IVP ONCE PRN PRN Reason: HEARTBURN Fentanyl (Fentanyl 50 Mcg/Ml Inj 2ml) 50 mcg IVP ONCE PRN PRN Reason: Preop Pain Fentanyl (Fentanyl 50 Mcg/Ml Inj 2ml) 50 mcg IVP Q5M PRN PRN Reason: Pain level 1-5 PACU Phase I Stop: 01/22/23 08:42 Fentanyl (Fentanyl 50 Mcg/Ml Inj 2ml) 100 mcg IVP ONCE PRN PRN Reason: Pain level 1-5 PACU Phase I Stop: 01/22/23 08:42 Fentanyl (Fentanyl 50 Mcg/Ml Inj 2ml) Confirm Administered Dose 100 mcg .ROUTE .Dheere Bolo-MED ONE Stop: 01/21/23 10:34 Fentanyl (Fentanyl 50 Mcg/Ml Inj 2ml) Confirm Administered Dose 100 mcg .ROUTE .Dheere Bolo-MED ONE Stop: 01/21/23 11:38 Hydromorphone HCl (Hydromorphone 1 Mg/Ml Inj 1 Ml) 0.5 mg IVP ONCE PRN PRN Reason: For preop pain/anxiety Hydromorphone HCl (Hydromorphone 1 Mg/Ml Inj 1 Ml) 0.5 mg IVP ONCE PRN PRN Reason: Phase II postop pain Hydromorphone HCl (Hydromorphone 1 Mg/Ml Inj 1 Ml) 0.5 mg IVP Q10M PRN PRN Reason: Pain level 6-10 PACU Phase I Stop: 01/22/23 08:42 Sodium Chloride (Sodium Chloride 0.9%) 1,000 mls @ 75 mls/hr IV .[id number] [facility] Last Infusion: 01/22/23 10:11 Dose: Infused Cefazolin Sodium 2,000 mg/ (Sodium Chloride) 50 mls @ 100 mls/hr IV [employer] ONE; Protocol Stop: 01/21/23 07:44 Last Infusion: 01/21/23 09:14 Dose: Infused Sodium Chloride (Sodium Chloride 0.9%) 1,000 mls @ 30 mls/hr IV .Q24H [facility] Stop: 01/22/23 08:14 Last Infusion: 01/21/23 11:25 Dose: Infused Sodium Chloride (Sodium Chloride 0.9%) 1,000 mls @ 100 mls/hr IV .Q10H [facility] Stop: 01/22/23 08:44 Last Admin: 01/21/23 11:25 Dose: Not Given Lidocaine HCl (Xylocaine) Confirm Administered Dose 4 mls @ as directed .ROUTE .STK-MED ONE Stop: 01/21/23 10:39 Cefazolin Sodium 2,000 mg/ (Sodium Chloride) 50 mls @ 100 mls/hr IV Q8H [facility]; Protocol Stop: 01/22/23 09:29 Last Infusion: 01/22/23 10:10 Dose: Infused Sodium Chloride (Sodium Chloride 0.9% (100 Ml)) Confirm Administered Dose 100 mls @ as directed .ROUTE .STK-MED ONE Stop: 01/22/23 10:30 Ipratropium Guin (Ipratropium 0.5 Mg/2.5 Ml Neb) 0.5 mg INHALATION ONCE PRN PRN Reason: WHEEZING Ketorolac Tromethamine (Ketorolac 30 Mg/Ml Inj) 30 mg IVP Q6H PRN PRN Reason: MODERATE PAIN Last Admin: 01/21/23 14:59 Dose: 30 mg Meperidine HCl (Meperidine 50 Mg/Ml Inj) 12.5 mg IVP ONCE PRN PRN Reason: Shivering PACU Phase I Metoprolol Succinate (Metoprolol Succinate Er (24 Hr) 25 Mg Tablet) 25 mg PO DAILY [facility] Last Admin: 01/22/23 07:31 Dose: 25 mg Metoprolol Succinate (Metoprolol Succinate Er (24 Hr) 50 Mg Tablet) 50 mg PO DAILY [facility] Last Admin: 01/24/23 08:03 Dose: 50 mg Metoprolol Succinate (Metoprolol Succinate Er (24 Hr) 25 Mg Tablet) 25 mg PO ONCE [facility] Metoprolol Succinate (Metoprolol Succinate Er (24 Hr) 50 Mg Tablet) 100 mg PO DAILY [facility] Metoprolol Succinate (Metoprolol Succinate Er (24 Hr) 100 Mg Tablet) 100 mg PO Q12H [facility] Last Admin: 01/24/23 09:28 Dose: Not Given Metoprolol Succinate (Metoprolol Succinate Er (24 Hr) 50 Mg Tablet) 50 mg PO ONCE ONE Stop: 01/24/23 09:19 Last Admin: 01/24/23 11:12 Dose: 50 mg Metoprolol Tartrate (Metoprolol Tartrate 1 Mg/1 Ml Sdv 5 Ml) 2.5 mg IVP ONCE ONE Stop: 01/21/23 16:20 Last Admin: 01/21/23 16:35 Dose: 2.5 mg Metoprolol Tartrate (Metoprolol Tartrate 1 Mg/1 Ml Sdv 5 Ml) 2.5 mg IVP ONCE ONE Stop: 01/22/23 07:51 Last Admin: 01/22/23 08:56 Dose: 2.5 mg Midazolam HCl (Midazolam 1 Mg/Ml Inj 2 Ml) 2 mg IVP ONCE PRN PRN Reason: Preop Anxiety Morphine Sulfate (Morphine 4 Mg/Ml Sdv 1 Ml) 2 mg IVP Q4H PRN PRN Reason: SEVERE PAIN Last Admin: 01/21/23 04:02 Dose: 2 mg Non-Formulary Medication (Fluticasone Propion-Salmeterol [Advair Diskus]) 1 puff INHALATION BID [facility] Ondansetron HCl (Ondansetron 2 Mg/Ml Sdv 2 Ml) 4 mg IVP ONCE PRN PRN Reason: NAUSEA AND VOMITING Ondansetron HCl (Ondansetron 2 Mg/Ml Sdv 2 Ml) 4 mg IVP ONCE PRN PRN Reason: Nausea PACU Phase I Ondansetron HCl (Ondansetron 2 Mg/Ml Sdv 2 Ml) 4 mg IVP ONCE PRN PRN Reason: Nausea/Vomiting PACU PHASE II Ondansetron HCl (Ondansetron 2 Mg/Ml Sdv 2 Ml) Confirm Administered Dose 4 mg .ROUTE .STK-MED ONE Stop: 01/21/23 11:06 Potassium Chloride (Potassium Chloride Er 20 Meq Tablet) 40 meq PO ONCE ONE Stop: 01/24/23 12:11 Last Admin: 01/24/23 13:30 Dose: 40 meq Propofol (Propofol 10 Mg/Ml Sdv 20 Ml) Confirm Administered Dose 200 mg .ROUTE .STK-MED ONE Stop: 01/21/23 10:39 Scopolamine (Scopolamine 1.5 Patch) 1 patch TRANSDERMA ONCE PRN PRN Reason: Nausea/ Vomiting Prophylaxis Sodium Chloride (Sodium Chloride 0.9% 100 Ml Bag) 50 ml IV PRN PRN PRN Reason: Blood transfusion prime and flush Stop: 01/23/23 08:02 Last Admin: 01/22/23 13:07 Dose: 50 ml Allergies diltiazem Allergy (Unknown, Verified 07/29/21 15:55) Unknown enalapril Allergy (Unknown, Verified 07/29/21 15:55) Unknown Home Medications fluticasone 100 mcg-salmeterol 50 mcg/dose blistr powdr for inhalation (Advair Diskus) 1 puff inhalation BID 05/22/19 [History Confirmed 01/20/23] tamsulosin 0.4 mg capsule 0.4 mg PO DAILY 05/22/19 [History Confirmed 01/20/23] acetaminophen 500 mg tablet 500 mg PO .AT NIGHT 02/16/20 [History Confirmed 01/20/23] albuterol sulfate 90 mcg/actuation aerosol inhaler 2 puff inhalation BID 02/16/20 [History Confirmed 01/20/23] apixaban 5 mg tablet (Eliquis) 5 mg PO DAILY 02/16/20 [History Confirmed 01/20/23] ferrous sulfate 325 mg (65 mg iron) tablet 325 mg PO .WEEKLY 02/16/20 [History Confirmed 01/20/23] finasteride 5 mg tablet (Proscar) 5 mg PO DAILY 02/16/20 [History Confirmed 01/20/23] omeprazole 20 mg capsule,delayed release 20 mg PO DAILY 02/16/20 [History Confirmed 01/20/23] cetirizine 10 mg capsule (All Day Allergy (cetirizine)) 10 mg PO DAILY 02/19/20 [History Confirmed 01/20/23] amlodipine 5 mg tablet 5 mg PO BID #180 tabs 03/26/20 [Rx Confirmed 01/20/23] Discharge Plan Discharge Patient Disposition: Home Health Service Condition: Stable Prescriptions: New oxycodone 5 mg Tablet 5 mg PO Q8H PRN (Reason: Moderate Pain) 5 Days Qty: 15 0RF atorvastatin 40 mg Tablet 40 mg PO BEDTIME 30 Days Qty: 30 0RF sennosides-docusate sodium [Stool Softener-Laxative] 8.6-50 mg Tablet 2 tab PO BID 30 Days Qty: 120 0RF metoprolol succinate 100 mg Tablet Extended Release 24 Hr 100 mg PO DAILY 30 Days Qty: 30 0RF Continued tamsulosin 0.4 mg capsule 0.4 mg PO DAILY fluticasone propion-salmeterol [Advair Diskus] 100-50 mcg/dose blister with device 1 puff INHALATION BID albuterol sulfate 90 mcg/actuation HFA aerosol inhaler 2 puff INHALATION BID omeprazole 20 mg capsule,delayed release(DR/EC) 20 mg PO DAILY Eliquis 5 mg tablet 5 mg PO DAILY finasteride [Proscar] 5 mg tablet 5 mg PO DAILY acetaminophen 500 mg tablet 500 mg PO .AT NIGHT All Day Allergy (cetirizine) 10 mg capsule 10 mg PO DAILY Changed amlodipine 5 mg tablet 5 mg PO DAILY Qty: 180 3RF ferrous sulfate 325 mg (65 mg iron) tablet 325 mg PO EVERY OTHER DAY 30 Days Qty: 30 0RF Discharge Orders: Discharge Order (Routine); Ordered 01/26/23 Ordered By: Susan Sánchez Other Ambulatory Orders: DME: Ty (Order) Location: None Selected Ordered By: Dick Sharma Referrals: [facility] and [facility] [Other] (This company may be able to assist w/ getting caregiver services w/ your insurance. You will need to call and discuss to see what will be required. ) [facility] [Outside] [facility] [Outside] Discharge Diet: Advance as tolerated Discharge Activity: Limit activity as instructed Patient Instructions: Opioid Safety Activity Restrictions/Additional Instructions: You are being discharged from the hospital today during which time you have been under the care of Dr Espana. You had a Left hip fracture. You were treated for this injury with IM nail. You may resume you normal diet (including any special diets as directed by your primary doctor) as well as your home medications. You should follow up with you primary doctor if you have any questions regarding medication you took prior to your stay in the hospital. You may take your pain medication as prescribed. After the first few days, take your pain medication as needed. Do not drive or drink alcohol while taking your pain medication. Your injury may increase your risk of developing a blood clot,or DVT, in your arm or leg. This could potentially dislodge and travel to your lungs and become a life threatening condition called apulmonary embolus,or PE. You have been prescribed eliquis to be taken to prevent this. Frequent movement of the legs will also help prevent this from occurring. If you develop any new or worsening cough, chestpain, bloody sputum or shortness of breath, call 911 or go to the [facility]. Always keep your surgical incision/dressing clean and dry. If you experience increasing pain at your incision site, redness, swelling, increasing discharge, foul odors, or fevers (greater than 100.4), night sweats or chills you should call the office at the above number. If you feel this is an emergency you should be evaluated in the Emergency Department of a nearby hospital. Orthopedic Patient Instructions Summary: Weight Bearing: WBAT Activity: as tolerated. Diet: regular. Wound Care: Keep dressing clean and dry. Change as needed Anticoagulation: Lovenox Pain Medication: Take only as needed. Ice, rest and elevation will be of great benefit. Please plan to follow-up [facility] Dr Espana in 2 weeks. You will need to call the clinic [phone] to schedule. Do not hesitate to call the office with any questions or concerns. Transfer Attestations Time Spent in Transfer Care: other Quality Metrics Clinical Quality Measures [ No reported AMI, CVA or VTE this stay] Coding Level of Care Code Acute Code for [facility] Fwd Diagnoses Closed fracture of left hip S72.002A
--- NOTE | 2023-01-26 12:35 | PC.NURSE ---
Discharge instructions given to pt. Verbalizes understanding and has no questions at this time. at bedside. Home meds that pt. brought have been returned to him at this time. All other belongings with pt. CM to set up taxi ride home.
[2023-01-26 12:37] VITALS: BP 148/94; PULSE 96; RESP 18; TEMP 36.4; O2SAT 95
--- NOTE | 2023-02-12 17:03 | P.OP_ITS ---
Operative Report Date of procedure: 2022 Pre-op diagnosis: Left intertrochanteric hip fracture Post-op diagnosis: same Procedure done: Left intramedullary hip nail with a long femoral nail Surgeon: Supa Espana DO Programming Intern: Mir Moreno Programming Intern: The surgical corsetier, Mir Moreno, FRANTZ was needed for his expertise with fracture care. He was important and necessary throughout the procedure to complete in a safe and timely manner. He assisted with patient positioning pre pping and draping tissue retraction suctioning of the operative field protection of the critical structures and tissue closure Procedure: Left intramedullary hip nail with a long femoral nail Patient is brought to the operative suite after undergoing anesthesia was placed on the [place] table. All areas appear well-padded patient's prepped and draped normal sterile fashion. Traction and rotation were had to reduce the fracture. Once the fracture was reduced skin incision made proximal to the greater trochanter. The starting pin was inserted into the greater trochanter and then the opening reamer was inserted. And then multiple reamers were passed through the femoral canal size 10 nail was inserted and then the guidepin was inserted up into the femoral head. This was drilled and then a lag screw was placed up into the femoral head. Once this was completed. Attention was then brought to the distal locking screw and this was done using the perfect [place] technique 1 screw was placed in the distal end of the nail. Once this was locked in position AP and lateral fluoroscopy ensured that the hardware and fracture were in good position. And wounds were irrigated and closed with Vicryl and rubens. Sterile dressings were applied and patient was transferred to the PACU in stable condition.
== END 2023-01-26 12:41 | disposition home health service (06) | DRG 481 ==
LOC: ER 20:45 → MEDSURG 20:58
PROVIDERS: Internal Medicine; Orthopaedic Surgery; Admitting Provider Internal Medicine; Emergency Provider Student in an Organized Health Care Education/Training Program; PCP Nurse Practitioner Family; Visit Provider Student in an Organized Health Care Education/Training Program
PROC: 0QH736Z Insertion of Intramedullary Internal Fixation Device into Left Upper Femur, Percutaneous Approach (ICD-10-PCS; CPT 27245; principal; 2023-01-21 09:00)
DX: S72.142A Displaced intertrochanteric fracture of left femur, initial encounter for closed fracture (principal); D62 Acute posthemorrhagic anemia; W18.30XA Fall on same level, unspecified, initial encounter; I48.91 Unspecified atrial fibrillation; Z79.01 Long term (current) use of anticoagulants; I10 Essential (primary) hypertension; E78.5 Hyperlipidemia, unspecified; N40.0 Benign prostatic hyperplasia without lower urinary tract symptoms; I51.9 Heart disease, unspecified; J44.9 Chronic obstructive pulmonary disease, unspecified; F17.200 Nicotine dependence, unspecified, uncomplicated
CPT/HCPCS: 36415; 36430; 71045; 73502; 73552; 76000; 80053; 80069; 83735; 84100; 85025; 86850; 86900; 86920; 93005; 93308; 93971; 94640; 97110; 97116; 97161; 97165; 97530; 97535; 99285; C1713; J0690; J1100; J1885; J2270; J2405; J2704; J3010; J3490; J7030; J7613; J7626; P9016; Q3014

== ENCOUNTER 2023-06-17 08:47 | Outpatient (CLI) | payer MEDICARE, OTHER, SELFPAY ==
--- NOTE | 2023-06-17 08:51 | FL_ITS ---
WS: [id number] Modified barium swallow, 06/17/2023 Clinical Data: Other dysphagia Comparison: None. Fluoroscopy time: 2min [id number] # of spot films: 1 Findings: The patient had difficulty in chewing food. There was penetration but no aspiration with thin liquids . There was vallecular and piriform sinus residue with only difficulty cleared. There was a fair amou nt of residual barium even after multiple swallows. The barium tablet did pass into the esophagus and fragments. Impression: 1. Poor oral preparation of food. 2. Penetration but no aspiration with thin liquids. 3. Significant residue in the vallecula and piriform sinus which cleared with difficulty.
== END 2023-06-17 08:48 | disposition home or self-care (01) ==
LOC: RAD 08:48
PROVIDERS: PCP Nurse Practitioner Family; Visit Provider Nurse Practitioner Family
DX: R13.10 Dysphagia, unspecified (principal)
CPT/HCPCS: 74230; 92611

== ENCOUNTER 2023-06-30 13:51 | Emergency (ER) | payer MEDICARE, OTHER, SELFPAY ==
[2023-06-30 13:56] VITALS: BP 127/82; PULSE 120; RESP 22; TEMP 36.6; O2SAT 97
--- NOTE | 2023-06-30 14:28 | PC.PHAR ---
Addendum entered by Meghan Douglass 06/30/23 15:06: [facility] Original Note: [facility] 2[facility] AND REFAXED AT 2:30PM. 06/30/23
--- NOTE | 2023-06-30 14:29 | XRR_ITS ---
PROCEDURE INFORMATION: Exam: XR Chest Exam date and time: 06/30/2023 3:03 PM Age: 77 years old Clinical indication: Cough and dyspnea; Additional info: Dyspnea/cough TECHNIQUE: Imaging protocol: Radiologic exam of the chest. Views: 1 view. COMPARISON: CR XR chest 1V portable [id number] 01/20/2023 8:10 PM FINDINGS: Lungs: Unremarkable. No consolidation or mass. Pleural spaces: Unremarkable. No pleural effusion. No pneumothorax. Heart/Mediastinum: Unremarkable. No cardiomegaly. Bones/joints: The bony structures demonstrate diffuse osteopenia. An old compression fracture involves the midthoracic spine and has undergone kyphoplasty. XR/XR chest 1V portable [id number] IMPRESSION: No acute findings.
--- NOTE | 2023-06-30 14:29 | ECG_ITS ---
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 Measurements Intervals [place] Rate: 121 P: 0 SD: 0 QRS: 57 QRSD: 89 T: 58 QT: 293 QTc: 416 Interpretive Statements ATRIAL FIBRILLATION WITH RAPID VENTRICULAR RESPONSE WITH ABERRANT CONDUCTION OR VENTRICULAR PREMATURE COMPLEXES INDETERMINATE AXIS Compared to ECG 01/21/2023 16:16:02 Aberrant conduction of supraventricular beat(s) now present Ventricular premature complex(es) now present Indeterminate axis now present ST (T wave) deviation no longer present Electronically Signed On 06-30-2023 16:49:30 CDT by Scooter Barrett M.D. [email or web address]/store/[id number] f
--- NOTE | 2023-06-30 14:33 | ED_ITS ---
HPI - SOB/Dyspnea 2 General: Chief Complaint: Shortness of Breath/Dyspnea Stated Complaint: sob Time Seen by Provider: 06/30/23 14:23 Source: patient Mode of arrival: ambulatory History of Present Illness: HPI Narrative: 77-year-old male presents to the emergen cy room with complaints of feeling short of breath and having a rapid heart rate intermittently. Patient has a known history of atrial fibrillation he is on apixaban he is not on anything for rate control. But over the last week he has noticed increasing fatigue and shortness of breath limited stamina. MD elicited complaint: shortness of breath Onset (ago): week(s) (1) Timing: intermittent Severity: moderate Exacerbating factors: nothing Relieving factors: nothing Associated symptoms: Deny abdominal pain, chest congestion, chest pain, cough, diaphoresis, dizziness, extremity pain, fever(s), hemoptysis, lightheadedness, myalgias, nausea, orthopnea, palpitations, paresthesias, polydipsia, polyuria, rash, sense of impending doom, syncope or vomiting Treatment prior to arrival: none Review of Systems 2 Const: Denies: fever(s), chills or diaphoresis Card: Denies: chest pain, palpitations, lightheadedness, syncope or orthopnea Resp: Denies: dyspnea, hemoptysis or chest congestion GI: Denies: abdominal pain, nausea or vomiting : Denies: dysuria, urinary frequency or urinary urgency Musc: Denies: neck pain, back pain or extremity pain Skin/Breast: Denies: rash Neuro: Denies: dizziness Endo: Denies: polyuria or polydipsia PFSH ED 2 PFSH: Medical History Tobacco abuse History of colon polyps Hyperlipemia COPD (chronic obstructive pulmonary disease) Urolithiasis 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 Gross hematuria HTN (hypertension) with goal to be determined Atrial fibrillation Surgical History History of colonoscopy with polypectomy 2016 S/P cholecystectomy S/P hernia repair Family History Mother Heart disease Father Heart disease Sister Diabetes Social History Smoking and tobacco/nicotine status: current every day tobacco/nicotine user Alcohol intake: unknown Substance/Drug Use: never Marital status: Current occupational status: retired Physical Exam 2 Const: GENERAL APPEARANCE: cooperative and comfortable O RIENTATION/CONSCIOUSNESS: Yes awake, Yes oriented to person, Yes oriented to place and Yes oriented to time HENMT: COMMON NORMALS: normocephalic, atraumatic and hearing grossly normal bilaterally HEAD & SCALP: normocephalic and atraumatic Resp: COMMON NORMALS: normal respiratory effort, No retractions, No use of accessory muscles and clear to auscultation bilaterally AUSCULTATION: clear to auscultation bilaterally Cardio: COMMON NORMALS: No murmurs present (Cardio) RATE: tachycardic R HYTHM: abnormal rhythm irregularly irregular GI: COMMON NORMALS: Soft to palpation and No hepatosplenomegaly present A USCULTATION: Yes normoactive bowel sounds PALPATION: Yes Soft to palpation, No Tenderness to palpation present (GI), No Guarding due to palpation present (GI) and Yes No hepatosplenomegaly present Extremity: COMMON NORMALS: normal to inspection, capillary refill normal, no clubbing, cyanosis or edema, no calf tenderness and no pedal edema Neuro: SENSORIUM/ORIENTATION: Yes oriented to person, Yes oriented to place and Yes oriented to time Skin: COMMON NORMALS: no rashes or lesions noted GENERAL SKIN EXAM: no rashes or lesions noted Course 2 Vital Signs: Vital signs: Vital Signs Temperature 97.9 F 06/30/23 13:56 Pulse Rate 89 06/30/23 17:02 Respiratory Rate 21 H 06/30/23 17:02 Blood Pressure 133/89 06/30/23 14:51 Pulse Oximetry 92 06/30/23 17:02 Oxygen Delivery Me thod Room Air 06/30/23 14:51 MDM - SOB/Dyspnea Medical Decision Making Patient arrives with complaints of shortness of breath with activity it is improved when his rate is controlled. We were able to eventually control his rate with beta-jaime. Will recommend starting on metoprolol XL 25 mg once daily follow-up with primary care doctor within the week. He also was noted to have hematuria he had a previous workup in July 2021 at that point his workup was negative with the exception of bilateral renal stones none ureters. According to Dr. Choi's notes they thought the blood source was from the renal stones. This likely elevated the fact that he is now on Eliquis. You should follow-up with his primary care doctor with this. At the end of his visit he stated that the nurse practitioner and sent to me here to get a CT. He is currently on Eliquis I do not think he has a very high risk at all at this point for pulmonary embolism and his symptoms resolved with rate control. His oxygen sat remained in the mid to upper 90s with ambulation as well. Will discharge him home and follow-up with his primary care doctor within the next week. Medical Records I reviewed the patient's medical records. Lab Data I reviewed the patient's lab results. 06/30/23 14:45 06/30/23 14:45 Labs/Radiology: Radiology Impressions Chest X-Ray 06/30/23 14:29 IMPRESSION: No acute findings. Laboratory Results WBC 10.05 10^3/uL (3.29-11.43) 06/30/23 14:45 RBC 3.68 10^6/uL (3.85-5.65) L 06/30/23 14:45 Hgb 11.90 g/dL (11.27-16.99) 06/30/23 14:45 Hct 35.0 % (37-53) L 06/30/23 14:45 MCV 95.1 fl (82-101) 06/30/23 14:45 MCH 32.3 pg (27-33) 06/30/23 14:45 MCHC 34.0 g/dL (30-55) 06/30/23 14:45 RDW 13.7 % (12.1-15.1) 06/30/23 14:45 Plt Count 211 10^3/cmm (157-399) 06/30/23 14:45 MPV 11.4 fL (7.4-10.4) H 06/30/23 14:45 Neut % (Auto) 86.5 % 06/30/23 14:45 Lymph % (Auto) 8.3 % 06/30/23 14:45 [place] % (Auto) 4.5 % 06/30/23 14:45 Eos % (Auto) 0.0 % 06/30/23 14:45 Baso % (Auto) 0.2 % 06/30/23 14:45 Neut # (Auto) 8.70 10^3/uL (1.8-7.7) H 06/30/23 14:45 Lymph # (Auto) 0.8 10^3/uL (0.8-4.8) 06/30/23 14:45 [place] # (Auto) 0.5 10^3/uL (0.2-0.9) 06/30/23 14:45 Eos # (Auto) 0.0 10^3/uL (0.0-0.8) 06/30/23 14:45 Baso # (Auto) 0.0 10^3/uL (0.0-0.1) 06/30/23 14:45 Nucleated RBC % (auto) 0 % 06/30/23 14:45 Nucleated RBCs # 0.0 /100WBC 06/30/23 14:45 Sodium 141 mmol/L (136-145) 06/30/23 14:45 Potassium 3.8 mmol/L (3.5-5.1) 06/30/23 14:45 Chloride 106 mmol/L (98-107) 06/30/23 14:45 Carbon Dioxide 26 mmol/L (22-29) 06/30/23 14:45 Anion Gap 12.8 (5-19) 06/30/23 14:45 BUN 38 mg/dL (8-23) H 06/30/23 14:45 Creatinine 1.4 mg/dL (0.7-1.2) H 06/30/23 14:45 GFR Calculation Not Reportable 06/30/23 14:45 Glucose 143 mg/dL (65-115) H 06/30/23 14:45 Calculated Osmolality 304 mOsm/kg (285-295) H 06/30/23 14:45 Calcium 8.9 mg/dL (8.5-10.5) 06/30/23 14:45 Total Bilirubin 0.4 mg/dL (0.15-1.2) 06/30/23 14:45 AST 17 U/L (0-40) 06/30/23 14:45 ALT 18 U/L (0-41) 06/30/23 14:45 Alkaline Phosphatase 98 U/L (40-130) 06/30/23 14:45 Troponin T Baseline 60 ng/L (0-15) H 06/30/23 14:45 Total Protein 6.3 g/dL (6.6-8.7) L 06/30/23 14:45 Albumin 3.7 g/dL (3.5-5.2) 06/30/23 14:45 Globulin 2.6 g/dL (1.3-4.6) 06/30/23 14:45 Urine Color Yellow (Yellow) 06/30/23 16:01 Urine Appearance Clear (CLEAR) 06/30/23 16:01 Urine pH 5 (5-7) 06/30/23 16:01 Ur Specific [place] 1.020 (1.005-1.030) 06/30/23 16:01 Urine Protein 2+ (Negative) H 06/30/23 16:01 Urine Glucose (UA) Norm (Normal) 06/30/23 16:01 Urine Ketones Negative (Negative) 06/30/23 16:01 Urine Blood 3+ (Negative) H 06/30/23 16:01 Urine Nitrate Negative (Negative) 06/30/23 16:01 Urine Bilirubin Neg (Negative) 06/30/23 16:01 Urine Urobilinogen Norm mg/dL (Negative) 06/30/23 16:01 Ur Leukocyte Esterase Negative (Negative) 06/30/23 16:01 Urine RBC 15-25 /hpf (0-2) H 06/30/23 16:01 Urine WBC 0-4 /hpf (0-5) H 06/30/23 16:01 Ur Squamous Epith Cells 5-10 /hpf (0-5) H 06/30/23 16:01 Amorphous Sediment Not Reportable 06/30/23 16:01 Urine Bacteria Trace /hpf (NONE) 06/30/23 16:01 All radiology interpretation(s) finalized by discharge Discharge Plan Discharge Patient Disposition: Home Clinical Impression: Atrial fibrillation, Hematuria Condition: Stable Prescriptions: New metoprolol succinate [Toprol XL] 25 mg tablet extended release 24 hr 25 mg PO DAILY Qty: 30 0RF No Action tamsulosin 0.4 mg capsule 0.4 mg PO QPM fluticasone propion-salmeterol [Advair Diskus] 100-50 mcg/dose blister with device 1 puff INHALATION BID albuterol sulfate 90 mcg/actuation HFA aerosol inhaler 2 puff INHALATION BID omeprazole 20 mg capsule,delayed release(DR/EC) 20 mg PO DAILY Eliquis 5 mg tablet 5 mg PO BID finasteride [Proscar] 5 mg tablet 5 mg PO DAILY acetaminophen 500 mg tablet 500 mg PO QPM amlodipine 5 mg tablet 5 mg PO DAILY Qty: 180 3RF ferrous sulfate 325 mg (65 mg iron) tablet 325 mg PO EVERY OTHER DAY 30 Days Qty: 30 0RF Discharge Orders: Discharge ED (Routine); Ordered 06/30/23 Ordered By: Curt Shelton Referrals: Yuni Johnson FNP [Primary Care Provider] - Discharge Diet: Usual diet Discharge Activity: Limit activity as instructed Patient Instructions: Opioid Safety, Pain Management Activity Restrictions/Additional Instructions: Thank you for choosing [facility] for your healthcare needs today. Please realize this is an emergency room and that we are providing you with a medical screening exam and this may not be complete and all inclusive of all the testing and or work up that you may need to determine your ailment or severity of your illness. It is very important that you follow up as instructed or that you return to the Emergency Department should you have concerns or if your condition changes or worsens in any way. You were seen today for shortness of breath and rapid heart rate. Because of your shortness of breath appears to be your atrial fibrillation your symptoms improved when your heart rate was controlled and we ambulated to. Your heart rate remained controlled with ambulation. We did recommend adding metoprolol 25 mg once daily to your medication list to maintain heart rate control. You should have your blood pressure and heart rate rechecked in your doctor's office within the next week. You are also noted to have blood in your urine at your visit. This blood was microscopic. You had a workup [address] Choi at that time it was felt to be secondary to bilateral renal stones. Since you are not experiencing any renal colic at this time we did not do further workup this should be followed up as an outpatient. Suspect the blood in your urine is also aggravated by the Eliquis that you are currently taking. Coding Level of Care Code ED Electrician Elevator Maintenance for Marcel Pritchett
[2023-06-30 14:35] VITALS: BP 133/69; PULSE 112; RESP 17; O2SAT 97
[2023-06-30 14:51] VITALS: BP 133/89; PULSE 108; RESP 23; O2SAT 96
[2023-06-30 14:56] LABS: Basophils % 0.2 %; Lymphocytes # 0.8 10^3/uL (0.8-4.8); Lymphocytes % 8.3 %; Mean Corpuscular Hemoglobin 32.3 pg (27-33); Mean Corpuscular Volume 95.1 fl (82-101); Mean Platelet Volume 11.4 fL (7.4-10.4); Monocytes # 0.5 10^3/uL (0.2-0.9); Monocytes % 4.5 %; Neutrophils % 86.5 %; Nucleated Red Blood Cells % 0 %; Platelet Count 211 10^3/cmm (157-399); Red Blood Count 3.68 10^6/uL (3.85-5.65); Red Cell Distribution Width 13.7 % (12.1-15.1); White Blood Count 10.05 10^3/uL (3.29-11.43)
[2023-06-30 15:13] LABS: Alanine Aminotransferase 18 U/L (0-41); Albumin Level 3.7 g/dL (3.5-5.2); Alkaline Phosphatase 98 U/L (40-130); Aspartate Amino Transferase 17 U/L (0-40); Blood Urea Nitrogen 38 mg/dL (8-23); Calcium 8.9 mg/dL (8.5-10.5); Carbon Dioxide 26 mmol/L (22-29); Chloride 106 mmol/L (98-107); Globulin 2.6 g/dL (1.3-4.6); Glucose 143 mg/dL (65-115); Osmolality Calculated 304 mOsm/kg (285-295); Sodium 141 mmol/L (136-145); Total Bilirubin 0.4 mg/dL (0.15-1.2); Total Protein 6.3 g/dL (6.6-8.7)
[2023-06-30 15:15] LABS: Creatinine Clr Calc Pharmacy 44.5133; Troponin(5th) Baseline 60 ng/L (0-15)
[2023-06-30 15:17] LABS: Anion Gap 12.8 (5-19); Potassium 3.8 mmol/L (3.5-5.1)
--- NOTE | 2023-06-30 15:44 | PC.PHAR ---
PT HAS NOT BEEN SEEN AT [facility] SINCE 2007. PT FILLS AT [facility] IN [place]
[2023-06-30 16:07] VITALS: PULSE 118; RESP 27; O2SAT 97
[2023-06-30] MEDS: metoprolol succinate ER (24 HR) 25 mg Tablet PO (16:10)
[2023-06-30] MEDS: metoprolol tartrate 1 mg/1 mL SDV 5 mL 2.5 MG IVP (16:11)
[2023-06-30 16:22] LABS: Add Urine Microscopic? YES; Bacteria Urine TRACE /hpf; Bilirubin Urine Neg (Negative); Blood Urine 3+ (Negative); Glucose Urine UA Norm (Normal); Ketones Urine Negative (Negative); Leukocyte Esterase Urine Negative (Negative); Nitrate Urine Negative (Negative); Protein Urine 2+ (Negative); RBC Urine 15-25 /hpf (0-2); Urine Appearance Clear (CLEAR); Urine Color Yellow (Yellow); Urobilinogen Urine Norm (Negative); WBC Urine 0-4 /hpf (0-5); pH Urine 5 (5-7)
[2023-06-30 16:23] LABS: Add Urine Culture? Yes
--- NOTE | 2023-06-30 16:29 | ECG_ITS ---
[facility] Test Date: 2023-06-30 Pat Name: Abimael Santillan Department: Room: Gender: Male Consignee: : 1945 Requested By: Curt Velasco Order Number: [id number] Doug MD: Scooter Barrett M.D. Measurements Intervals [place] Rate: 95 P: 0 MD: 0 QRS: 84 QRSD: 85 T: 78 QT: 346 QTc: 437 Interpretive Statements ATRIAL FIBRILLATION INDETERMINATE AXIS Compared to ECG 06/30/2023 13:53:09 Aberrant conduction of supraventricular beat(s) no longer present Ventricular premature complex(es) no longer present Electronically Signed On 06-30-2023 16:52:42 CDT by Scooter Barrett M.D. [id number]
[2023-06-30 17:02] VITALS: PULSE 89; RESP 21; O2SAT 92
[2023-06-30 17:25] VITALS: PULSE 89; RESP 21; O2SAT 92
[2023-06-30 17:52] LABS: Troponin 5 2HR 58.08 ng/L (0-15)
[2023-06-30 17:59] LABS: Troponin 5 2HR Delta -1.92 ABS# (0-10)
== END 2023-06-30 17:27 | disposition home or self-care (01) ==
PROVIDERS: Emergency Provider Family Medicine; PCP Nurse Practitioner Family
DX: I48.91 Unspecified atrial fibrillation (principal); R31.9 Hematuria, unspecified; Z79.01 Long term (current) use of anticoagulants; Z72.0 Tobacco use
CPT/HCPCS: 71045; 80053; 81001; 84484; 85025; 87086; 93005; 96374; 99285; J3490

== ENCOUNTER → 2023-08-25 09:46 | Outpatient (BNVA) | payer MEDICARE, OTHER, SELFPAY | PROVIDERS: PCP Nurse Practitioner Family; Referring Provider Nurse Practitioner Family; Visit Provider Surgery | DX: K40.90 Unilateral inguinal hernia, without obstruction or gangrene, not specified as recurrent (principal) | CPT/HCPCS: 99204; 99214 ==

== ENCOUNTER 2023-09-02 14:06 | Outpatient (CLI) | payer MEDICARE, OTHER, SELFPAY ==
[2023-09-02] MEDS: iohexol 350 mg/mL 500 mL Btl (per mL) PO (14:25)
--- NOTE | 2023-09-02 15:30 | CT_ITS ---
WS: [id number] CT ABDOMEN AND PELVIS WITH CONTRAST HISTORY: inguinal scrotal hurnia right side TECHNIQUE: Imaging performed of the abdomen and pelvis with IV contrast. Single phase imaging of the abdomen. Coronal and sagittal reformats are submitted. All CT scans at [facility] use at [address] one of these dose optimization techniques: automated exposure control; mA and/or kV adjustment per patient size (includes targeted exams where dose is matched to clinical indication); or iterative re construction. IV CONTRAST: Omnipaque 350; 100 mL IV. Oral contrast: Yes. DLP: 277.78 mGy.cm COMPARISON: 03/01/2020 Lower thorax: Emphysematous changes at the lung bases. Very mild biatrial enlargement. Small pericard ial effusion. No hiatal hernia. Liver/biliary system: Liver is normal size. Mild intrahepatic duct dilatation. Normal portal vein. Gallbladder: Prior cholecystectomy. Common bile duct appears normal. Pancreas: Normal size pancreas and pancreatic duct. No adjacent inflammation. Spleen: Normal size with granulomata. Adrenal glands: Normal. Right kidney: 9.8 cm in length. There is mild diffuse cortical thinning. No obstruction. No mass. Left kidney: Normal size with mild diffuse cortical thinning. No mass. 11 mm calcification developing in a lower pole calyx. Exophytic cyst from the lower pole 12 mm. Aorta: Ectatic atherosclerotic changes throughout the aorta. Not aneurysmal. Small amount of plaque a t the celiac axis and SMA. Moderate calcification continues into the common iliac arteries. Lymphadenopathy: No lymph nodes are identified. Small lymph nodes would be difficult to exclude with the lack of fat. Free fluid: Very tiny amount of free fluid along the RIGHT paracolic gutter. GI tract: Stomach is markedly distended with food products and oral contrast and air. No small bowel obstruction. Large RIGHT inguinal hernia contains distal small bowel, appendix and the cecum. There i s no obstructive pattern. Mild diffuse constipation. Abdominal wall: No ventral abdominal wall hernia. Pelvis: Urinary bladder is only mildly distended. There is very mild wall thickening. Prostate gland is enlarged. Small phleboliths. No adenopathy. Bones: Prior ORIF LEFT femur. L2 40% compression fracture new since 03/01/2020. Fracture does not monica ear acute at this time. CT/CT abdomen pelvis w con* [id number] IMPRESSION: 1. Large RIGHT inguinal hernia. Hernia contains distal small bowel, appendix a nd the cecum. There is no obstruction at this time. 2. Stomach is markedly distended with contrast and food products. 3. Prior cholecystectomy. 4. Mild central hepatic bile duct dilatation is probably on the basis of the c holecystectomy. 5. Nonobstructing lower pole calcifications LEFT kidney. 6. Moderate atherosclerosis abdominal aorta and iliac arteries. 7. Emphysema. 8. Small pericardial effusion. 9. L2 40% compression fracture new since 03/01/2020 but does not appear to be acute. 10. Prostate gland enlargement.
[2023-09-02 15:42] LABS: Blood Urea Nitrogen 22 mg/dL (8-23)
[2023-09-02] MEDS: iohexol 350 mg/mL 500 mL Btl (per mL) IV (15:47)
== END 2023-09-02 14:07 | disposition home or self-care (01) ==
LOC: RAD 14:06
PROVIDERS: PCP Nurse Practitioner Family; Visit Provider Surgery
DX: K40.90 Unilateral inguinal hernia, without obstruction or gangrene, not specified as recurrent (principal); N28.1 Cyst of kidney, acquired; I70.0 Atherosclerosis of aorta; J43.8 Other emphysema; N40.0 Benign prostatic hyperplasia without lower urinary tract symptoms; M48.56XA Collapsed vertebra, not elsewhere classified, lumbar region, initial encounter for fracture; Z90.49 Acquired absence of other specified parts of digestive tract
CPT/HCPCS: 74177; 82565; 84520; Q9967

== ENCOUNTER 2023-10-25 06:11 | Day surgery (SDC) | payer MEDICARE, OTHER, SELFPAY ==
[2023-10-25] VITALS (10 sets, daily range): BP systolic 120–152; BP diastolic 73–105; PULSE 67–90; RESP 14–19; TEMP 36.3–36.8; O2SAT 92–100; BMI 19.1
--- NOTE | 2023-10-25 06:46 | W.PM.OPSFHP ---
Same Day Surgery H&P Indication for Procedure/HPI DATE OF PROCEDURE: October 25, 2023 CHIEF COMPLAINT/INDICATIONFOR SURGICAL PROCEDURE: Is a 77-year-old male presenting with right inguinal scrotal hernia PREOP DIAGNOSIS: Right inguinal scrotal hernia incarcerated PLANNED PROCEDURE: Operation Date: 10/25/23 07:50 Proposed Procedures p Laparoscopic , possible open, Inguinal Hernia Repair with mesh 27520, K40.90(Right) - Juan J Benton MD Medications/Allergies* Home Medications Medication Instructions Recorded Confirmed Type tamsulosin 0.4 mg capsule 0.4 mg PO QPM 05/22/19 10/22/23 History acetaminophen 500 mg tablet 500 mg PO QPM 02/16/20 10/22/23 History albuterol sulfate 90 mcg/actuation 2 puff inhalation BID 02/16/20 10/22/23 History aerosol inhaler apixaban 5 mg tablet (Eliquis) 5 mg PO BID 02/16/20 10/22/23 History finasteride 5 mg tablet (Proscar) 5 mg PO DAILY 02/16/20 10/22/23 History omeprazole 20 mg capsule,delayed 20 mg PO DAILY 02/16/20 10/22/23 History release potassium chloride 10 mEq 10 meq PO DAILY 09/23/23 10/22/23 History capsule,extended release Allergies/Adverse Reactions Allergy/AdvReac Type Severity Reaction Status Date / Time diltiazem Allergy Unknown Unknown Verified 10/22/23 12:00 enalapril Allergy Unknown Unknown Verified 10/22/23 12:00 Pertinent History/Comorbid Conditions* Medical History (Updated 07/08/23 @ 00:01 by RYANNE Dove) Tobacco abuse History of colon polyps Hyperlipemia COPD (chronic obstructive pulmonary disease) Urolithiasis 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 Gross hematuria HTN (hypertension) with goal to be determined Atrial fibrillation Surgical History (Updated 01/15/21 @ 12:56 by Sunita Brambila DO) History of colonoscopy with polypectomy 2016 S/P cholecystectomy S/P hernia repair Family History (Updated 05/22/19 @ 11:18 by Clara Manning RN) Diabetes Sister Heart disease Mother Father Social History Smoking and tobacco/nicotine status: current every day tobacco/nicotine user Alcohol intake: unknown Substance/Drug Use: never Marital status: Current occupational status: retired Pertinent Exam Findings alert, oriented x 3, clear to auscultation bilaterally, regular rate & rhythm and procedure specific exam findings Incarcerated right inguinal scrotal hernia Recommendations Surgery/Procedure today Other Plans: I Discussed once again with the patient all risk and benefits of surgery, I informed the patient that if I am able to reduce the hernia at the bedside while he is sleeping I may attempt to do the procedure with a laparoscopic approach to facilitate his recovery, but I have informed the patient that the likelihood of conversion to open is extremely high due to the size of the hernia. I have also Splane to the patient that there is a 10% chance of recurrence, there is a risk of injuring the structures around including the small bowel colon bladder and blood vessels of the pelvis, there is risk of bleeding pulled IntraOp and delay and there is risk of mesh infection in the future requiring excision. Have explained to the patient that he may develop orchitis as the hernia has been chronic for many years and probably closely related to his testicle. He can also develop chronic groin pain and his results seroma formation is extremely high. After discussing risk benefits patient still wants to proceed with surgery. Coding Level of Care Code Acute Code for Chg Fwroberto
[2023-10-25] MEDS: sodium chloride 0.9% 1,000 ML 30 ML IV (06:47)
[2023-10-25] MEDS: albuterol 2.5 mg/3 mL Neb INHALATION (06:48)
--- NOTE | 2023-10-25 06:53 | ANES.PREANE2 ---
Pre-Anesthetic Assessment Height/Weight: Height 1.78 m Weight 60.328 kg Temp Pulse Resp BP Pulse Ox O2 Del Method 98.2 F 90 18 152/105 95 Room Air 10/25/23 06:38 10/25/23 06:38 10/25/23 06:38 10/25/23 06:38 10/25/23 06:38 10/25/23 06:42 Preop Diagnosis: Right inguinal scrotal hernia incarcerated Operation Date: 10/25/23 07:50 Proposed Procedures p Laparoscopic , possible open, Inguinal Hernia Repair with mesh [id number], K40.90(Right) - Juan J Benton MD Last intake: Intake Last Liquid Date 10/24/23 Last Liquid Time 18:00 Last Solid Date 10/24/23 Last Solid Time 16:00 Social Tobacco Exam alert, oriented x 3, clear to auscultation bilaterally and regular rate & rhythm Airway Submandibular: within normal limits Cervical ROM: within normal limits Mallampati: Class I Pulmonary Chronic Obstructive Pulmonary Disease CV/HEM Hypertension None reported Hepatic None reported GI None reported Metabolic None reported Musc/skel None reported Anesthetic Plan ASA status: 3 Anesthesia: General Risk of > 500 ml blood loss (7ml/kg in children): No Medications/Allergies Home Medications Medication Instructions Recorded Confirmed Last Taken Type tamsulosin 0.4 mg capsule 0.4 mg PO QPM 05/22/19 10/22/23 10/24/23 History acetaminophen 500 mg tablet 500 mg PO QPM 02/16/20 10/22/23 10/21/23 History albuterol sulfate 90 mcg/actuation 2 puff inhalation BID 02/16/20 10/22/23 10/25/23 History aerosol inhaler apixaban 5 mg tablet (Eliquis) 5 mg PO BID 02/16/20 10/22/23 10/21/23 History finasteride 5 mg tablet (Proscar) 5 mg PO DAILY 02/16/20 10/22/23 10/24/23 History omeprazole 20 mg capsule,delayed 20 mg PO DAILY 02/16/20 10/22/23 10/24/23 History release amlodipine 5 mg tablet 5 mg PO DAILY #180 tabs 01/26/23 10/22/23 10/24/23 Rx potassium chloride 10 mEq 10 meq PO DAILY 09/23/23 10/22/23 10/24/23 History capsule,extended release Allergies Allergy/AdvReac Type Severity Reaction Status Date / Time diltiazem Allergy Unknown Unknown Verified 10/22/23 12:00 enalapril Allergy Unknown Unknown Verified 10/22/23 12:00 Current Medications Generic Name Dose Route Start Last Admin Trade Name Freq PRN Reason Stop Dose Admin Sodium Chloride 1,000 mls @ 30 mls/hr 10/25/23 06:15 10/25/23 06:47 Sodium Chloride 0.9% IV 10/26/23 06:14 30 mls/hr .Q24H ABDI Administration PFSH Anesthesia Medical History Tobacco abuse History of colon polyps Hyperlipemia COPD (chronic obstructive pulmonary disease) Urolithiasis 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 Gross hematuria HTN (hypertension) with goal to be determined Atrial fibrillation Surgical History History of colonoscopy with polypectomy 2016 S/P cholecystectomy S/P hernia repair Family History Mother Heart disease Father Heart disease Sister Diabetes Social History Smoking and tobacco/nicotine status: current every day tobacco/nicotine user Alcohol intake: unknown Substance/Drug Use: never Marital status: Current occupational status: retired Data Anesthesia Cardiac Studies: Echocardiogram Limited Views 01/24/23 Echocardiogram Ultrasound 01/30/20
[2023-10-25] MEDS: ceFAZolin 2,000 mg SDV 2000 MG IVP (08:18)
[2023-10-25] MEDS: lidocaine-epi 1% PF 1:200,000 30 mL SDV INJECTION (08:47)
[2023-10-25] MEDS: BUPivacaine 0.25% INJ 10 mL INJECTION (08:47)
--- NOTE | 2023-10-25 10:09 | PM.OP ---
Operative Report Date of procedure: October 25, 2023 Pre-op diagnosis: Right inguinal scrotal hernia Post-op diagnosis: Right inguinal scrotal hernia Post-op findings: There was a large right inguinal scrotal hernia, hernia was incarcerated, after anesthesia and muscle relaxation I was able to reduce the hernia into the abdomen before starting the procedure. Procedure done: Open right inguinal hernia repair with mesh. Surgeon: Juan J Benton MD Estimated blood loss: 5 Brief History: Is a 77-year-old male who presented to my clinic with a large right inguinal scrotal hernia that has been chronic in nature, after discussion of all risk and benefits as documented my preop note we decided to proceed with a laparoscopic possible open right inguinal hernia repair with mesh. Procedure: Patient was brought into the OR, placed in the supine position. General anesthesia was given. The abdomen was prepped and draped in the usual sterile fashion. After initial intubation patient had an episode of A-fib with rapid ventricular response, this was controlled by the anesthesia team, in addition after prepping it was noted that the patient was barrel chested making the angle to axis the preperitoneal space extremely challenging. I therefore decided to proceed with an open repair as this was the safest approach for the patient as no pneumoperitoneum will be needed and no other anatomic considerations will be required. A timeout was conducted. I made a 5 cm incision on the right groin overlying the area of the suspected hernia. The incision was deepened into the subcutaneous tissue until the external oblique aponeurosis was exposed, the external oblique aponeurosis was severely attenuated, carefully I open this aponeurosis with a 15 blade and then I used a Metzenbaum scissor to cut aponeurosis open from the external ring to the area overlying the internal ring. Severe additions were noted between the cord structures and the inguinal canal likely due to the chronicity of the hernia. Careful blunt dissection with peanut was used in order to dissect the cord from the thompson of the canal. I then proceeded to encircle the cord structures between my fingers and a Garfield was passed. At this point I opened the cremaster muscle in a longitudinal fashion exposing the elements of the cord. A very large indirect sac was identified, the sac was carefully dissected from the surrounding cord structures and was able to be reduced into the preperitoneal space, in addition a lipoma of the cord was identified, this was dissected all the way to the internal ring and it was tied and transected at this level. After reduction of the sac and lipoma of the cord hemostasis was verified. The ilioinguinal nerve was visualized and left in place, the genital branch of the genitofemoral branch nerve was also visualized and left in place, the ilioinguinal nerve was not identified. I then proceeded to plicate the floor of the canal as there was an area of significant weakness close to the internal ring I did this with a #0 Prolene. After this I proceeded to place a mesh, the mesh was laid flat with the tails around the cord. I then fixed the mesh with #0 Prolene to the pubic tubercle and to the shelving edge of the inguinal ligament. I then used #0 Vicryl to fix the mesh to the conjoined tendon, on the lateral portion the tails of the mesh were joined together with 0 Prolene. Complete coverage of the floor of the canal was achieved and the mesh was flat. I then proceeded to closed in layers using #2-0 Vicryl for the external oblique aponeurosis, #3-0 Vicryl for the subcutaneous tissue and #4 Monocryl for the skin. Dermabond was applied and a compressive dressing was applied on top. A scrotal support was applied. At the end of the procedure all counts were correct, the patient tolerated well the procedure and was transferred to the PACU in stable condition.
--- NOTE | 2023-10-25 10:30 | PC.NURSE ---
1024 - oral airway removed pet patient - mask remains in place
--- NOTE | 2023-10-25 13:17 | ANE.PACU2 ---
Inpatient post-anesthesia follow up: Airway intact: Yes Vital signs: Temperature 97.6 F Pulse Rate 82 Respiratory Rate 18 Blood Pressure 136/90 Pulse Oximetry 94 Oxygen Delivery Me thod Room Air Oxygen Flow Rate 8 Fraction of Inspir ed Oxygen Hydration adequate: Yes Nausea and vomiting: No Pain level: controlled Mental status: Baseline Additional Comments: no apparent anesthetic complications noted
== END 2023-10-25 11:48 | disposition home or self-care (01) ==
PROVIDERS: PCP Nurse Practitioner Family; Visit Provider Surgery
PROC: (CPT 49507; 2023-10-25 07:40)
DX: K40.30 Unilateral inguinal hernia, with obstruction, without gangrene, not specified as recurrent (principal); Z86.010 Personal history of colon polyps; E78.5 Hyperlipidemia, unspecified; J44.9 Chronic obstructive pulmonary disease, unspecified; I10 Essential (primary) hypertension; I48.91 Unspecified atrial fibrillation
CPT/HCPCS: 49507; 51702; 88304; J0330; J0690; J1100; J2405; J2704; J2710; J3010; J3490; J7030; J7613

== ENCOUNTER 2023-11-11 08:57 | Outpatient (CLI) | payer MEDICARE, OTHER, SELFPAY ==
--- NOTE | 2023-11-11 09:02 | XR_ITS ---
WS: [id number] Chest 2 views, 11/11/2023 Clinical Data: COPD EXACERBATION Comparison: Portable chest, 06/30/2023 Findings: No nodules, masses or effusions are seen. The heart is normal. The pulmonary vascularity is not increased. No pneumonia or pneumothorax is seen. The diaphragms are flattened. The aortic arch a nd descending thoracic aorta show tortuosity. There is kyphoplasty cement in the mid thoracic vertebr al body unchanged. XR/XR chest 2V* [id number] Impression: Atherosclerosis and hyperinflation.
== END 2023-11-11 08:58 | disposition home or self-care (01) ==
LOC: RAD 09:00
PROVIDERS: PCP Nurse Practitioner Family; Visit Provider Nurse Practitioner Family
DX: J44.89 Other specified chronic obstructive pulmonary disease (principal); I70.90 Unspecified atherosclerosis
CPT/HCPCS: 71046

== ENCOUNTER → 2023-11-19 09:48 | Outpatient (BNVA) | payer MEDICARE, OTHER, SELFPAY | PROVIDERS: PCP Nurse Practitioner Family; Visit Provider Surgery | DX: Z98.890 Other specified postprocedural states (principal); Z87.19 Personal history of other diseases of the digestive system | CPT/HCPCS: 99024 ==

== ENCOUNTER 2024-12-30 18:59 | Emergency (ER) | payer MEDICARE, OTHER, SELFPAY ==
[2024-12-30] VITALS (8 sets, daily range): BP systolic 119–172; BP diastolic 89–116; PULSE 110–132; O2SAT 91–95
--- NOTE | 2024-12-30 19:05 | ECG_ITS ---
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 Measurements Intervals [place] Rate: 135 P: 0 AK: 0 QRS: -67 QRSD: 86 T: 72 QT: 267 QTc: 401 Interpretive Statements ATRIAL FIBRILLATION WITH RAPID VENTRICULAR RESPONSE INDETERMINATE AXIS POSSIBLE RIGHT VENTRICULAR CONDUCTION DELAY [RSR (QR) IN V1/V2] LEFT ANTERIOR FASCICULAR BLOCK [QRS AXIS <= -45, QR IN I, RS IN II] Compared to ECG 06/30/2023 16:34:00 Left anterior fascicular block now present Electronically Signed On 12-31-2024 17:46:49 CDT by Robb Tran M.D. [id number]
--- OUTSIDE RECORDS SUMMARY | 2024-12-30 19:08 | XMS_ITS | Encounter Summary ---
Author Organization [facility] Address [address] [place] [address] Care Team Providers Care Technical Sales Representatives Name Role Phone Manuel Morales MD Primary Care Provider Encounter Details Date Type Department Care Team (Latest Contact Info) Description 07/26/2000 Outpatient Historical [facility] Medicine [address] [phone] Manuel Morales MD [address] [address] Pain in joint, lower leg (Primary Dx) Social History Tobacco Use Types Packs/Day Years Used Date Smoking Tobacco: Never Assessed Sex and Gender Information Value Date Recorded Sex Assigned at Not on file 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
--- OUTSIDE RECORDS SUMMARY | 2024-12-30 19:08 | XMS_ITS | Clinical Summary ---
Author Organization [facility] Address [address] [place] [address] Care Team Providers Care Enterprise Resource Planning Consultant Name Role Phone Manuel Morales MD Primary Care Provider Allergies No known active allergies Medications tiotropium (SPIRIVA) 18 mcg capsule Take 18 mcg by inhalation daily. Active finasteride (PROSCAR) 5 mg tablet Take 5 mg by mouth daily. Active metoprolol tartrate (LOPRESSOR) 50 mg tablet Take 50 mg by mouth 2 times daily. Active tamsulosin (FLOMAX) 0.4 mg capsule Take 0.4 mg by mouth 2 times daily. Active rosuvastatin (CRESTOR) 40 mg tablet Take 40 mg by mouth daily at bedtime. Active fluticasone propion-salmeter ol (ADVAIR DISKUS) 250-50 mcg/dose disk inhaler Take 1 Puff by inhalation 2 times daily. Active doxepin (SINEquan) 10 mg capsule Take 50 mg by mouth daily at bedtime. 9 Active albuterol (PROVENTIL,SUSAN WILLIE) 2.5 mg /3 mL (0.083 %) Solution for Nebulization Take 3 mL (2.5 mg) by inhalation every 4 hours as needed for Shortness of Breath. 9 Active bisacodyl (DULCOLAX) 10 mg Suppository Insert 1 Suppository (10 mg) by rectum 1 time daily as needed for Constipation. 9 Active acetaminophen (TYLENOL) 325 mg tablet Take 2 Tablets (650 mg) by mouth every 6 hours as needed for Other (See Comment) (See admin instructions). 9 Active dextran 70-hypromellose PF (ARTIFICIAL TEARS) 0.1-0.3 % Dropperette Administer 1 Drop in both eyes 4 times daily as needed for Other (See Comment) (dry eyes). 9 Active polyethylene glycol (MIRALAX) 17 gram Powder in Packet Take 1 Packet (17 Grams) by mouth daily. 9 Active sennosides (SENOKOT) 8.6 mg tablet Take 1 Tablet (8.6 mg) by mouth daily at bedtime. 9 Active simethicone 80 mg Tablet, Chewable Take 0.5 Tablets (40 mg) by mouth every 6 hours as needed for Gas. 9 Active dicyclomine (BENTYL) 10 mg capsule Take 1 Capsule (10 mg) by mouth 4 times daily with meals and at bedtime. 120 Capsule 9 Active Active Problems Problem Noted Date Diagnosed Date Atrial fibrillation with rapid ventricular respo nse 09/18/2018 Hypokalemia 09/18/2018 Upper gastrointestinal bleed 09/17/2018 Right lower quadrant abdominal pain 09/17/2018 Adynamic ileus 09/15/2018 PAF (paroxysmal atrial fibrillation) 09/15/2018 Renal stones 09/14/2018 Enteritis 09/13/2018 HTN (hypertension), benign 09/13/2018 Hyperlipidemia 09/13/2018 Abdominal pain 09/13/2018 Abnormal finding on urinalysis 09/13/2018 Leukocytosis (leucocytosis) 09/13/2018 CAROLANN (acute kidney injury) 09/13/2018 Cigarette dependence 11/21/2015 Immunizations Immunization Administration Dates Next Due (PREVNAR 13)(6 WKS UP) PNEUM OCOCCAL CONJUGATE (PCV13) 0.5 ML, IM 09/13/2018 Family History Medical History Relation Name Comments Heart Disease Father Heart Disease Mother Unknown Sister Relation Name Status Comments Father Mother Sister Alive Social History Tobacco Use Types Packs/Day Years Used Date Smoking Tobacco: Former Cigarettes 2 25 0 10/11/1991 - 10/10/2016 Smokeless Tobacco: Never Alcohol Use Standard Drinks/Week Comments No 0 (1 standard drink = 0.6 oz pur e alcohol) Social Connections Answer Date Recorded Frequency of Communication with Friends and Fami ly Not on file 09/18/2018 Frequency of Social Gatherings with Friends and Family Not on file 09/18/2018 Attends Christianity Services Not on file 09/18 Active Member of Clubs or Organizations Not on f ile 09/18/2018 Attends Club or Organization Meetings Not on kym e 09/18/2018 Are you , , di vorced, , never , or living with a partner? 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 Gender Identity Not on file Sexual Orientation Not on file Last Filed Vital Signs Vital Sign Reading Time Taken Comments Blood Pressure 150/89 09/23/2018 12:01 PM CDT Pulse 67 09/23/2018 3:52 PM CDT Temperature 36.1 C (96.9 F) 09/23/2018 3:52 PM CDT Respiratory Rate 19 09/23/2018 3:52 PM CDT Oxygen Saturation 100% 09/23/2018 3:52 PM CDT Inhaled Oxygen Concentration - - Weight 83.7 kg (184 lb 8.4 oz) 09/23/2018 4:34 A M CDT Height 177.8 cm (5' 10 ) 09/21/2018 3:51 AM CDT Body Mass Index 26.48 09/21/2018 3:51 AM CDT Plan of Treatment Health Maintenance Due Date Last Done Comments DTAP/TDAP/TD VACCINES (1 - Tdap) 1965 ZOSTER VACCINE (1 of 2) 1996 PNEUMOCOCCAL VACCINE 50+ YEA RS (2 of 2 - PCV20 or PCV21) 09/14/2019 09/13/2018 RSV VACCINE (60+ or ) (1 - 1-dose 75+ series) 2021 INFLUENZA VACCINE (#1) 2024 Insurance MEDICARE PART A AND B FOR LIFE Advance Directives For more information, please contact: [phone] * Full Code (Latest Code Status on File) Date Activated Date Inactivated Comments 09/17/2018 9:37 PM 09/23/2018 7:30 PM Care Teams Enterprise Resource Planning Consultant Relationship Specialty Start Date End Date Manuel Morales MD PCP - General 05/18/07
--- OUTSIDE RECORDS SUMMARY | 2024-12-30 19:08 | XMS_ITS | Clinical Summary ---
Author Organization [facility] Address [address] [place] [address] Care Team Providers Care Technical Solutions Consultant Name Role Phone Spencer Foley MD Primary Care Provider [phone] Allergies No known active allergies Medications tiotropium (SPIRIVA) 18 MCG per inhalation capsule Place 18 mcg into inhaler and inhale daily Active tamsulosin (FLOMAX) 0.4 MG 24 hr capsule Take 0.4 mg by mouth twice a day Active rosuvastatin (CRESTOR) 20 MG tablet Take 20 mg by mouth 1 (one) time each day Active finasteride (PROSCAR) 5 MG tablet Take 5 mg by mouth daily Active metoprolol succinate XL (TOPROL-XL) 25 MG 24 hr tablet Take 25 mg by mouth 1 (one) time each day Do not crush or chew. Active ferrous sulfate 325 (65 Fe) MG tablet Take 325 mg by mouth 3 times weekly Active apixaban (Eliquis) 2.5 MG tablet Take 2.5 mg by mouth 2 (two) times a day Active omeprazole (PriLOSEC) [address] capsule Take 20 mg by mouth 1 (one) time each day Do not crush or chew. Active fexofenadine (ENOCH) 180 MG tablet Take 180 mg by mouth 1 (one) time each day Active amLODIPine (NORVASC) 5 MG tablet Take 5 mg by mouth 1 (one) time each day Active Advair Diskus 250-50 MCG/DOSE diskus inhaler Inhale 1 puff 2 (two) times a day 10/09/2020 Active Active Problems Problem Noted Date Diagnosed Date Stage 3b chronic kidney disease 08/15/2020 Immunizations Immunization Administration Dates Next Due Pneumococcal Conjugate 13-Valent 09/13/2018 Family History Medical History Relation Comments Heart disease Father Heart disease Mother Relation Status Comments Father Mother Social History Tobacco Use Types Packs/Day Years Used Date Smoking Tobacco: Every Day Cigarettes 1 25 Smokeless Tobacco: Never Alcohol Use Standard Drinks/Week Comments Not Currently 0 (1 standard drink = 0.6 oz pur e alcohol) Sex and Gender Information Value Date Recorded Sex Assigned at Not on file Legal Sex Male 11:47 AM EDT Gender Identity Not on file Sexual Orientation Not on file Last Filed Vital Signs Vital Sign Reading Time Taken Comments Blood Pressure 136/80 12/04/2020 2:38 PM CDT Pulse 68 12/04/2020 2:38 PM CDT Temperature 37.6 C (99.7 F) 08/15/2020 1:26 PM CDT Respiratory Rate - - Oxygen Saturation - - Inhaled Oxygen Concentration - - Weight 69.9 kg (154 lb) 12/04/2020 2:38 PM CDT Height 180.3 cm (5' 11 ) 12/04/2020 2:38 PM CDT Body Mass Index 21.48 12/04/2020 2:38 PM CDT Plan of Treatment Health Maintenance Due Date Last Done Comments Pneumococcal Vaccine: 50+ Ye ars (2 of 2 - PPSV23, PCV20, or PCV21) 11/08/2018 09/13/2018 Influenza Vaccine (#1) 2024 Pneumococcal Vaccine: Peds ( 0 to 5 Years) and At-Risk Patients (6 to 49 Years) Discontinued 09/13/2018 Hepatitis B Vaccine Aged Out No longe r eligible based on patient's age to complete this topic Insurance Medicare Care Teams Technical Solutions Consultant Relationship Specialty Start Date End Date Spencer Foley MD [address] [place] [phone] PCP - General Family Medicine 06/27/20
--- OUTSIDE RECORDS SUMMARY | 2024-12-30 19:08 | XMS_ITS | Encounter Summary ---
Author Organization [facility] Address [address] [place] [address] Care Team Providers Care Custom Feed Mill Operator Helper Name Role Phone Manuel Morales MD Primary Care Provider [phone] Encounter Details Date Type Department Care Team (Late st Contact Info) Description 09/19/2002 Outpatient Historical [facility] [facility] [place] [address] [place] [phone] Social History Tobacco Use Types Packs/Day Years Used Date Smoking Tobacco: Never Assessed Sex and Gender Information Value Date Recorded Sex Assigned at Not on file 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
--- OUTSIDE RECORDS SUMMARY | 2024-12-30 19:08 | XMS_ITS | Encounter Summary ---
Author Organization [facility] Address [address] [place] [address] Care Team Providers Care Piece Meat Trimmer Name Role Phone Manuel Morales MD Primary Care Provider [phone] Encounter Details Date Type Department Care Team (Latest Contact Info) Description 04/26/2002 Outpatient Historical [facility] Ear, Nose and Throat [address] [place] 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
--- OUTSIDE RECORDS SUMMARY | 2024-12-30 19:08 | XMS_ITS | Encounter Summary ---
Author Organization [facility] Address [address] [place] [address] Care Team Providers Care Jewelry Sorter Name Role Phone Manuel Morales MD Primary Care Provider Encounter Details Date Type Department Care Team (Latest Contact Info) Description 03/14/2002 Outpatient Historical [facility] Medicine [address] [phone] Manuel Morales MD [address] [address] Hypertrophy of prostate (Primary Dx); Split of urinary stream Social History Tobacco Use Types Packs/Day Years Used Date Smoking Tobacco: Never Assessed Sex and Gender Information Value Date Recorded Sex Assigned at Not on file 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
--- OUTSIDE RECORDS SUMMARY | 2024-12-30 19:08 | XMS_ITS | Encounter Summary ---
Author Organization [facility] Address [address] [place] [address] Care Team Providers Care Skiver Sock Linings Name Role Phone Manuel Morales MD Primary Care Provider Encounter Details Date Type Department Care Team (Latest Contact Info) Description 07/11/2001 Outpatient Historical [facility] Medicine [place] [address] [phone] Manuel Morales MD [address] [address] NONINFEC GASTROENTERIT NEC (Primary Dx) Social History Tobacco Use Types Packs/Day Years Used Date Smoking Tobacco: Never Assessed Sex and Gender Information Value Date Recorded Sex Assigned at Not on file 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
--- OUTSIDE RECORDS SUMMARY | 2024-12-30 19:08 | XMS_ITS | Encounter Summary ---
Author Organization [facility] Address [address] [place] [address] Care Team Providers Care Dining Service Worker Name Role Phone Manuel Morales MD Primary Care Provider [phone] Encounter Details Date Type Department Care Team (Latest Contact Info) Description 09/18/[address] 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
--- OUTSIDE RECORDS SUMMARY | 2024-12-30 19:08 | XMS_ITS | Encounter Summary ---
Author Organization [facility] Address [address] [place] [address] Care Team Providers Care Bead Machine Operator Name Role Phone Manuel Morales MD Primary Care Provider [phone] Encounter Details Date Type Department Care Team (Late st Contact Info) Description 04/26/2002 Outpatient Historical [facility] Ear, Nose and Throat 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
--- OUTSIDE RECORDS SUMMARY | 2024-12-30 19:08 | XMS_ITS | Encounter Summary ---
Author Organization [facility] Address [address] [place] [address] Care Team Providers Care Stretcher Operator Name Role Phone Manuel Morales MD Primary Care Provider [phone] Encounter Details Date Type Department Care Team (Latest Contact Info) Description 07/26/2002 Outpatient Historical [facility] Ear, Nose and Throat 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
--- OUTSIDE RECORDS SUMMARY | 2024-12-30 19:08 | XMS_ITS | Encounter Summary ---
Author Organization [facility] Address [address] [place] [address] Care Team Providers Care Rug Inspector Helper Name Role Phone Manuel Morales MD Primary Care Provider [phone]- [phone] Encounter Details Date Type Department Care Team (Latest Contact Info) Description 02/03/2002 Outpatient Historical [facility] Medicine [address] [phone] Kahterin Monte MD [address] [place] [phone] Hypertrophy of prostate (Primary Dx); ARTHROPATHY NOS-UNSPEC Social History Tobacco Use Types Packs/Day Years Used Date Smoking Tobacco: Never Assessed Sex and Gender Information Value Date Recorded Sex Assigned at Not on file 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
--- OUTSIDE RECORDS SUMMARY | 2024-12-30 19:08 | XMS_ITS | Encounter Summary ---
Author Organization [facility] Address [address] [place] [address] Care Team Providers Care Phlebotomist Lab Assistant Name Role Phone Manuel Morales MD Primary Care Provider Encounter Details Date Type Department Care Team (Latest Contact Info) Description 09/21/2002 Outpatient Historical [facility] [place] [place] [address] [place] [phone] Manuel Morales MD [address] [place] [address] ABDOMINAL PAIN RUQ (Primary Dx) Social History Tobacco Use Types Packs/Day Years Used Date Smoking Tobacco: Never Assessed Sex and Gender Information Value Date Recorded Sex Assigned at Not on file 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
--- OUTSIDE RECORDS SUMMARY | 2024-12-30 19:08 | XMS_ITS | Encounter Summary ---
Author Organization [facility] Address [address] [place] [address] Care Team Providers Care Rn Circulating Name Role Phone Manuel Morales MD Primary Care Provider + [phone] Reason for Referral * CT Scan (Routine) - Closed Specialty Diagnoses / Procedures Referred By Contac t Referred To Contact Radiology Diagnoses Anterior chest wall pain Unexplained weight loss Smoker Procedures CT CHEST W WO CONTRAST Spencer Mills MD [facility] [place] [address] Phone: tel: fax: [facility] CT Scan [place] [address] [facility] [address] [place] [address] Phone: tel: fax: Referral ID Status Reason Start Date Expiration Date V isits Requested Visits Authorized [id number] Closed MSN View CTS to Schedule (SGF) 11/04/2018 12/05/2019 1 1 Encounter Details Date Type Department Care Team (Latest Contact Info) Description 11/04/2018 Ancillary Orders [facility] [address] [facility] [address] [place] [phone] Spencer Mills MD [address] [place], [place] [address] [address] Anterior chest wall pain; Unexplained weight loss; Smoker Social History Tobacco Use Types Packs/Day Years [...] and Family Not on file 09/18/2018 Attends Yazidi Services Not on file 09/18 Active Member of Clubs or Organizations Not on f ile 09/18/2018 Attends Club or Organization Meetings Not on kym e 09/18/2018 Are you , , di vorced, , never , or living with a partner? 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 Statement should be no thoracic lymphadenopathy by size criteria WITH IV contrast. Impressions 11/08/2018 1:22 PM CDT IMPRESSION: Please see below. Exam: CT CHEST W WO CONTRAST Date/Time of Exam: 11/08/2018 12:42 PM Reason For Exam: See Diagnosis. Diagnosis: Anterior chest wall pain; Unexplained weight loss; Smoker. Technique: Axial tomograms obtained through the chest pre and post administration of Isovue 300 intravenous contrast, 75 mL. Findings: Mild bilateral pleural reaction. Trace pericardial effusion. No gross thoracic lymphadenopathy by size criteria given limitation of absent IV contrast. No aneurysm of thoracic aorta. Low-grade emphysematous change. Areas of streak atelectasis and/or parenchymal scarring both lower lung zones. Limited images of upper abdomen without gross significant pathology. Age-indeterminate severe compression deformity vertebral segment of mid thoracic spine with trace retropulsion of bone into central spinal canal. Osteopenia of imaged skeleton. IMPRESSION: Low-grade COPD. Mild bilateral pleural reaction. Age-indeterminate, likely acute, marked compression deformity vertebral segment of mid thoracic spine with trace retropulsion of bone into central spinal canal. The findings and/or imaging diagnoses in the above impression have been deemed a critical result by the interpreting radiologist and immediately reported as such to the ordering physician or appropriate licensed caregiver in accordance with current radiology department policy. Narrative Procedure Note Ester Hinton MD - 11/08/2018 IMPRESSION: Please see below. Exam: CT CHEST W WO CONTRAST Date/Time of Exam: 11/08/2018 12:42 PM Reason For Exam: See Diagnosis. Diagnosis: Anterior chest wall pain; Unexplained weight loss; Smoker. Technique: Axial tomograms obtained through the chest pre and post administration of Isovue 300 intravenous contrast, 75 mL. Findings: Mild bilateral pleural reaction. Trace pericardial effusion. No gross thoracic lymphadenopathy by size criteria given limitation of absent IV contrast. No aneurysm of thoracic aorta. Low-grade emphysematous change. Areas of streak atelectasis and/or parenchymal scarring both lower lung zones. Limited images of upper abdomen without gross significant pathology. Age-indeterminate severe compression deformity vertebral segment of mid thoracic spine with trace retropulsion of bone into central spinal canal. Osteopenia of imaged skeleton. IMPRESSION: Low-grade COPD. Mild bilateral pleural reaction. Age-indeterminate, likely acute, marked compression deformity vertebral segment of mid thoracic spine with trace retropulsion of bone into central spinal canal. The findings and/or imaging diagnoses in the above impression have been deemed a critical result by the interpreting radiologist and immediately reported as such to the ordering physician or appropriate licensed caregiver in accordance with current radiology department policy. Spencer Mills MD CT ORDERABLES Edited Result - Final documented in this encounter Visit Diagnoses Diagnosis Anterior chest wall pain Painful respiration Unexplained weight loss Loss of weight Smoker Tobacco use disorder Anterior chest wall pain Painful respiration Unexplained weight loss Loss of weight Smoker Tobacco use disorder documented in this encounter Care Teams Rn Circulating Relationship Specialty Start Date End Date Manuel Morales MD PCP - General 05/18/07 documented as of this encounter
--- OUTSIDE RECORDS SUMMARY | 2024-12-30 19:08 | XMS_ITS | Encounter Summary ---
Author Organization [facility] Address [address] [place] [address] Care Team Providers Care Personnel Clerks Supervisor Name Role Phone Manuel Morales MD Primary Care Provider [phone]- [phone] Encounter Details Date Type Department Care Team (Late st Contact Info) Description 05/23/2002 Outpatient Historical [facility] Ear, Nose and Throat 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
--- OUTSIDE RECORDS SUMMARY | 2024-12-30 19:08 | XMS_ITS | Encounter Summary ---
Author Organization [facility] Address [address] [place] [address] Care Team Providers Care Gourmet Coffee Attendant Name Role Phone Manuel Morales MD Primary Care Provider [phone] Encounter Details Date Type Department Care Team (Latest Contact Info) Description 03/30/2002 [facility] [address] [phone] Manuel Morales MD [address] [address] PERFORAT TYMPAN MEMB NOS (Primary Dx) Social History Tobacco Use Types Packs/Day Years Used Date Smoking Tobacco: Never Assessed Sex and Gender Information Value Date Recorded Sex Assigned at Not on file 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
--- OUTSIDE RECORDS SUMMARY | 2024-12-30 19:08 | XMS_ITS | Clinical Summary ---
Author Organization [facility] Address [address] [place]: Epic Prelude ADT [place]AC[place]EL RAPP [address] Care Team Providers Care Technical Systems Architect Name Role Phone Manuel Morales MD Primary Care Provider Allergies No known active allergies Medications dicyclomine (BENTYL) 10 mg capsule Take 1 Capsule (10 mg) by mouth 4 times daily with meals and at bedtime. 120 Capsule 0 9 Active acetaminophen (TYLENOL) 325 mg tablet Take 2 Tablets (650 mg) by mouth every 6 hours as needed for Other (See Comment) (See admin instructions). 9 Active bisacodyL (DULCOLAX) 10 mg Suppository Insert 1 Suppository (10 mg) by rectum 1 time daily as needed for Constipation. 9 Active tamsulosin (FLOMAX) 0.4 mg capsule Take 0.4 mg by mouth 2 times daily. 9 Active polyethylene glycol (MIRALAX) 17 gram Powder in Packet Take 1 Packet (17 Grams) by mouth daily. 9 Active simethicone 80 mg Tablet, Chewable Take 0.5 Tablets (40 mg) by mouth every 6 hours as needed for Gas. 9 Active doxepin (SINEquan) 10 mg capsule Take 50 mg by mouth daily at bedtime. 9 Active albuterol (PROVENTIL,SUSAN WILLIE) 2.5 mg /3 mL (0.083 %) Solution for Nebulization Take 3 mL (2.5 mg) by inhalation every 4 hours as needed for Shortness of Breath. 9 Active rosuvastatin (CRESTOR) 40 mg tablet Take 40 mg by mouth daily at bedtime. 9 Active sennosides (SENOKOT) 8.6 mg tablet Take 1 Tablet (8.6 mg) by mouth daily at bedtime. 9 Active fluticasone propion-salmeter oL (ADVAIR DISKUS,WIXELA INHUB) 250-50 mcg/dose disk inhaler Take 1 Puff by inhalation 2 times daily. 9 Active dextran 70-hypromellose PF (ARTIFICIAL TEARS) 0.1-0.3 % Dropperette Administer 1 Drop in both eyes 4 times daily as needed for Other (See Comment) (dry eyes). 9 Active tiotropium (SPIRIVA) 18 mcg capsule Take 18 mcg by inhalation daily. 6 Active finasteride (PROSCAR) 5 mg tablet Take 5 mg by mouth daily. 6 Active metoprolol tartrate (LOPRESSOR) 50 mg tablet Take 50 mg by mouth 2 times daily. 6 Active Active Problems Problem Noted Date Diagnosed Date Atrial fibrillation with rapid ventricular respo nse 09/18/2018 Hypokalemia 09/18/2018 Upper gastrointestinal bleed 09/17/2018 Right lower quadrant abdominal pain 09/17/2018 Adynamic ileus 09/15/2018 PAF (paroxysmal atrial fibrillation) 09/15/2018 Renal stones 09/14/2018 HTN (hypertension), benign 09/13/2018 Abdominal pain 09/13/2018 Hyperlipidemia 09/13/2018 Abnormal finding on urinalysis 09/13/2018 Enteritis 09/13/2018 Leukocytosis (leucocytosis) 09/13/2018 CAROLANN (acute kidney [...] Years Used Date Smoking Tobacco: Former Cigarettes Q uit: 10/10/2016 Smokeless Tobacco: Never Alcohol Use Standard Drinks/Week Comments No 0 (1 standard drink = 0.6 oz pur e alcohol) Social Connections Answer Date Recorded Frequency of Communication with Friends and Fami ly Not on file 09/18/2018 Frequency of Social Gatherings with Friends and Family Not on file 09/18/2018 Attends Buddhism Services Not on file 09/18 Active Member of Clubs or Organizations Not on f ile 09/18/2018 Attends Club or Organization Meetings Not on kym e 09/18/2018 Are you , , di vorced, , never , or living with a partner? 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
--- OUTSIDE RECORDS SUMMARY | 2024-12-30 19:08 | XMS_ITS | Encounter Summary ---
Author Organization [facility] Address [address] [place] [address] Care Team Providers Care Manager Nicu Name Role Phone Manuel Morales MD Primary Care Provider [phone]- [phone] Encounter Details Date Type Department Care Team (Latest Contact Info) Description 03/21/2002 Outpatient Historical [facility] Medicine [address] [phone] Manuel Morales MD [address] [address] PERFORAT TYMPAN MEMB NOS (Primary Dx) Social History Tobacco Use Types Packs/Day Years Used Date Smoking Tobacco: Never Assessed Sex and Gender Information Value Date Recorded Sex Assigned at Not on file Legal Sex Male 5:[address] AND [address]ING Gender Identity Not on file Sexual Orientation Not on file documented as of this encounter Plan of Treatment Not on file documented as of this encounter Visit Diagnoses Diagnosis Perforation of tympanic membrane, unspecified- Primary documented in this encounter Care Teams Manager Nicu Relationship Specialty Start Date End Date Manuel Morales MD PCP - General 05/18/07 documented as of this encounter
--- OUTSIDE RECORDS SUMMARY | 2024-12-30 19:08 | XMS_ITS | Encounter Summary ---
Author Organization [facility] Address [address] [place] [address] Care Team Providers Care Substation Electrician Name Role Phone Manuel Morales MD Primary Care Provider Encounter Details Date Type Department Care Team (Latest Contact Info) Description 03/15/2003 Outpatient Historical [facility] Medicine [address] [phone] Manuel Morales MD [address] [address] OSTEOARTHROS NOS-OTHER SITE (Primary Dx) Social History Tobacco Use Types Packs/Day Years Used Date Smoking Tobacco: Never Assessed Sex and Gender Information Value Date Recorded Sex Assigned at Not on file 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
--- OUTSIDE RECORDS SUMMARY | 2024-12-30 19:08 | XMS_ITS | Encounter Summary ---
Author Organization [facility] Address [address] [facility] [address] [place] [address] Phone Care Team Providers Care Hand Glove Cleaner Name Role Phone Spencer Foley MD Primary Care Provider [phone] Encounter Details Date Type Department Care Team (Late st Contact Info) Description 06/27/2020 Orders Only [facility] [address] [facility] [facility] [address] [place] [address] Social History Tobacco Use Types Packs/Day Years [...] on filedocumented in this encounter Care Teams Hand Glove Cleaner Relationship Specialty Start Date End Date Spencer Foley MD [address] [place] [address] PCP - General Family Medicine 06/27/20 documented as of this encounter
--- OUTSIDE RECORDS SUMMARY | 2024-12-30 19:08 | XMS_ITS | Encounter Summary ---
Author Organization [facility] Address [address] [place] [address] Care Team Providers Care Bundles Hanger Name Role Phone Manuel Morales MD Primary Care Provider [phone]- [phone] Encounter Details Date Type Department Care Team (Latest Contact Info) Description 06/21/[address] [facility] Ear, Nose and Throat [address] [place] 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
--- OUTSIDE RECORDS SUMMARY | 2024-12-30 19:08 | XMS_ITS | Encounter Summary ---
Author Organization [facility] Address [address] [place] [address] Care Team Providers Care Founder & Ceo Name Role Phone Manuel Morales MD Primary Care Provider Encounter Details Date Type Department Care Team (Latest Contact Info) Description 09/21/2002 Outpatient Historical [facility] [facility] [place] [address] [place] [address] Manuel Morales MD [address] [place] [address] CHEST PAIN NOS (Primary Dx) Social History Tobacco Use Types Packs/Day Years Used Date Smoking Tobacco: Never Assessed Sex and Gender Information Value Date Recorded Sex Assigned at Not on file 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
--- OUTSIDE RECORDS SUMMARY | 2024-12-30 19:08 | XMS_ITS | Encounter Summary ---
Author Organization [facility] Address [address] [place] [address] Care Team Providers Care Camouflage Specialist Name Role Phone Manuel Morales MD Primary Care Provider [phone] Encounter Details Date Type Department Care Team (Latest Contact Info) Description 02/16/2002 Outpatient Historical [facility] Medicine [address] [phone] Manuel Morales MD [address] [address] JOINT PAIN-UNSPEC (Primary Dx); HYPERLIPIDEMIA NEC/NOS; AFTERCARE JAIL USE MEDICATN; OTHER MALAISE AND FATIGUE Social History Tobacco Use Types Packs/Day Years Used Date Smoking Tobacco: Never Assessed Sex and Gender Information Value Date Recorded Sex Assigned at Not on file 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
--- OUTSIDE RECORDS SUMMARY | 2024-12-30 19:08 | XMS_ITS | Encounter Summary ---
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
--- OUTSIDE RECORDS SUMMARY | 2024-12-30 19:08 | XMS_ITS | Encounter Summary ---
Author Organization [facility] Address [address] [place] [address] Care Team Providers Care Air Tester Name Role Phone Manuel Morales MD Primary Care Provider [phone] Encounter Details Date Type Department Care Team (Late st Contact Info) Description 07/26/2002 Outpatient Historical [facility] Ear, Nose and Throat [address] [place] [address] 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
--- OUTSIDE RECORDS SUMMARY | 2024-12-30 19:08 | XMS_ITS | Encounter Summary ---
Author Organization [facility] Address [address] [place] [address] Care Team Providers Care Glaze Wiper Name Role Phone Manuel Morales MD Primary Care Provider [phone] Encounter Details Date Type Department Care Team (Latest Contact Info) Description 09/28/2002 Outpatient Historical [facility] Medicine [address] [phone] Manuel Morales MD [address] [phone] DERMATITIS NOS (Primary Dx) Social History Tobacco Use Types Packs/Day Years Used Date Smoking Tobacco: Never Assessed Sex and Gender Information Value Date Recorded Sex Assigned at Not on file 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
--- OUTSIDE RECORDS SUMMARY | 2024-12-30 19:08 | XMS_ITS | Encounter Summary ---
Author Organization [facility] Address [address] [place] [address] Care Team Providers Care Ct Mri Technologist Name Role Phone Manuel Morales MD Primary Care Provider Encounter Details Date Type Department Care Team (Latest Contact Info) Description 08/05/2000 Outpatient Historical [facility] Medicine [address] [phone] Manuel Morales MD [address] [phone] Pain in joint, lower leg (Primary Dx) Social History Tobacco Use Types Packs/Day Years Used Date Smoking Tobacco: Never Assessed Sex and Gender Information Value Date Recorded Sex Assigned at Not on file 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
--- OUTSIDE RECORDS SUMMARY | 2024-12-30 19:08 | XMS_ITS | Encounter Summary ---
Author Organization [facility] Address [address] [place] [address] Care Team Providers Care Crystal Growing Technician Name Role Phone Manuel Morales MD Primary Care Provider [phone] Encounter Details Date Type Department Care Team (Late st Contact Info) Description 03/14/2002 Outpatient Historical [facility] Medicine [address] [phone] Manuel Morales MD [address] [phone] Social History Tobacco Use Types Packs/Day Years Used Date Smoking Tobacco: Never Assessed Sex and Gender Information Value Date Recorded Sex Assigned at Not on file 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
--- OUTSIDE RECORDS SUMMARY | 2024-12-30 19:08 | XMS_ITS | Encounter Summary ---
Author Organization [facility] Address [address] [place] [address] Care Team Providers Care Government Contracts Manager Name Role Phone Manuel Morales MD Primary Care Provider [phone] Encounter Details Date Type Department Care Team (Latest Contact Info) Description 01/27/2002 Outpatient Historical [facility] Medicine [address] [phone] Katherin Monte MD [address] [place] [phone] ABDOMINAL PAIN UNSPEC SITE (Primary Dx); DYSURIA; PROTEINURIA Social History Tobacco Use Types Packs/Day Years Used Date Smoking Tobacco: Never Assessed Sex and Gender Information Value Date Recorded Sex Assigned at Not on file 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
--- OUTSIDE RECORDS SUMMARY | 2024-12-30 19:08 | XMS_ITS | Encounter Summary ---
Author Organization [facility] Address [address] [place] [address] Care Team Providers Care Radiologist Name Role Phone Manuel Morales MD Primary Care Provider [phone] Encounter Details Date Type Department Care Team (Latest Contact Info) Description 05/23/2002 Outpatient Historical [facility] Head and Neck Surgery[facility] [place] [address] [place] [phone] Gabriel Frances MD [address] [phone] PERFORAT TYMPAN MEMB NOS (Primary Dx) Social History Tobacco Use Types Packs/Day Years Used Date Smoking Tobacco: Never Assessed Sex and Gender Information Value Date Recorded Sex Assigned at Not on file 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
--- OUTSIDE RECORDS SUMMARY | 2024-12-30 19:08 | XMS_ITS | Encounter Summary ---
Author Organization [facility] Address [address] [place] [address] Care Team Providers Care Electrical Helper Name Role Phone Manuel Morales MD Primary Care Provider [phone] Encounter Details Date Type Department Care Team (Latest Contact Info) Description 08/23/2000 Outpatient Historical [facility] Medicine [address] [phone] Manuel Morales MD [address] [phone] Pain in joint, lower leg (Primary Dx) Social History Tobacco Use Types Packs/Day Years Used Date Smoking Tobacco: Never Assessed Sex and Gender Information Value Date Recorded Sex Assigned at Not on file 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
--- NOTE | 2024-12-30 20:13 | XRR_ITS ---
PROCEDURE INFORMATION: Exam: XR Chest Exam date and time: 12/30/2024 8:15 PM Age: 79 years old Clinical indication: Shortness of breath and other: Tachycardia; Prior surgery; Surgery date: 6+ months; Surgery type: Gb; SOB with tachycardia. History of afib. ; Additional info: Afib rvr TECHNIQUE: Imaging protocol: Radiologic exam of the chest. Views: 1 view. COMPARISON: CR XR chest 2V* [id number] 11/11/2023 9:06 AM FINDINGS: Lungs: A few scattered nonspecific although chronic appearing pulmonary strands. Pleural spaces: Unremarkable. No pleural effusion. No pneumothorax. Heart/Mediastinum: Unremarkable. No cardiomegaly. Bones/joints: Unremarkable. Single-view XR/XR chest 1V portable [id number] IMPRESSION: No acute findings.
[2024-12-30 20:22] LABS: Hematocrit 34.6 % (37-53); Hemoglobin 11.80 g/dL (11.27-16.99); Mean Corpuscular HGB Conc 34.1 g/dL (30-55); Mean Corpuscular Hemoglobin 31.6 pg (27-33); Mean Corpuscular Volume 92.8 fl (82-101); Nucleated Red Blood Cells % 0 %; Platelet Count 240 10^3/cmm (157-399); Red Blood Count 3.73 10^6/uL (3.85-5.65); White Blood Count 10.13 10^3/uL (3.29-11.43)
--- NOTE | 2024-12-30 20:24 | W.ED.ARRPALP ---
HPI - Arrhythmia/Palpitations General: Chief Complaint: Arrhythmia/Palpitations Stated Complaint: Fast heart rate, sob Time Seen by Provider: 12/30/24 19:16 History of Present Illness: Patient is a 79-year-old male that presents to ED with palpitations. Denies any chest pain. Denies any recent cold or illness. He does not drink alcohol for some time. He states that he is on his Eliquis and compliant. He has association of shortness of breath. This has been occurring over the last 3 days. No other prevailing factors. Patient states he is unsure why diltiazem is on his allergy record. His last EF was 70%. Associated symptoms: Deny anxiety, nausea or vomiting Related Data Home Medications ?Medication ?Instructions ?Recorded ?Confirmed tamsulosin 0.4 mg capsule 0.4 mg PO QPM 05/22/19 11/19/23 acetaminophen 500 mg tablet 500 mg PO QPM 02/16/20 11/19/23 albuterol sulfate 90 mcg/actuation 2 puff inhalation BID 02/16/20 11/19/23 aerosol inhaler apixaban 5 mg tablet (Eliquis) 5 mg PO BID 02/16/20 11/19/23 finasteride 5 mg tablet (Proscar) 5 mg PO DAILY 02/16/20 11/19/23 omeprazole 20 mg capsule,delayed 20 mg PO DAILY 02/16/20 11/19/23 release potassium chloride 10 mEq 10 meq PO DAILY 09/23/23 11/19/23 capsule,extended release Previous Rx's ?Medication ?Instructions ?Recorded amlodipine 5 mg tablet 5 mg PO DAILY #180 tabs 01/26/23 acetaminophen 325 mg capsule 325 mg PO Q6H #30 caps 10/25/23 Allergies Allergy/AdvReac Type Severity Reaction Status Date / Time diltiazem Allergy Unknown Unknown Verified 12/30/24 19:09 enalapril Allergy Unknown Unknown Verified 12/30/24 19:09 Review of Systems Const: Denies: fever(s), chills, change in weight or fatigue Eyes: Denies: change in vision ENMT: Denies: odynophagia Card: Reports: palpitations and irregular heart rhythm; Denies: chest pain, swelling of feet/ankles, lightheadedness or dyspnea on exertion Resp: Denies: dyspnea GI: Denies: abdominal pain, nausea, vomiting, dysphagia, heartburn, diarrhea, constipation, pain on defecation or hematochezia : Denies: difficulty urinating or dysuria Skin/Breast: Denies: rash, nipple discharge or breast mass Neuro: Denies: headache(s), dizziness, vertigo or seizure-like activity Psych: Denies: anxiety or depression Gage/Lymph: Denies: easy bruising PFSH ED PFSH: Medical History (Updated 12/30/24 @ 23:08 by Caio Hinton MD) Tobacco abuse Right atrial mass History of colon polyps Hyperlipemia COPD (chronic obstructive pulmonary disease) Urolithiasis 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 Gross hematuria HTN (hypertension) with goal to be determined Atrial fibrillation Surgical History (Updated 11/19/23 @ 10:52 by Juan J Benton MD) History of hernia surgery Open right inguinal hernia repair with mesh.- Dr Benton History of colonoscopy with polypectomy 2016 S/P cholecystectomy S/P hernia repair Family History Mother Heart disease Father Heart disease Sister Diabetes Social History (Updated 12/30/24 @ 23:03 by Caio Hinton MD) Smoking and tobacco/nicotine status: current every day tobacco/nicotine user cigarettes Packs smoked per day: 2 Years cigarettes smoked: 49 Number of cigarettes per day: >20 [ Other cigarette details: 1 to 2 packs/day for 50 years as of 12/30/2024 he is considering quitting] Alcohol intake: former Year of sobriety/quit date alcohol: 1986 Former alcohol use details: Was heavy 8-10 beers a day and 2 quarts of whiskey on occasion Substance/Drug Use: never Additional social history: He wants full code no prolong life support. He states he talks with his kids infrequently but wants his eldest son Roderick Santillan to be decision-maker if he is incapacitated. 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 E6 Physical Exam Const: COMMON NORMALS: no acute distress, average body habitus and patient oriented x3 HENMT: COMMON NORMALS: normocephalic and atraumatic HEAD & SCALP: normocephalic and atraumatic Neck/C-Spine: COMMON NORMALS: full ROM, no lymphadenopathy and supple Lymph: LYMPHATIC: no lymphadenopathy noted Chest: COMMONS NORMALS: normal inspection of the chest Resp: COMMON NORMALS: normal respiratory effort, No retractions and clear to auscultation bilaterally AUSCULTATION: clear to auscultation bilaterally Cardio: RATE: tachycardic RHYTHM: abnormal rhythm regularly irregular GI: COMMON NORMALS: Normal to inspection, nondistended, normoactive bowel sounds present, Soft to palpation and non-tender PALPATION: Yes Soft to palpation : COMMON NORMALS: Yes no CVA tenderness BLADDER/KIDNEY EXAM: Yes no CVA tenderness Back/Pelvis: COMMON NORMALS: no CVA tenderness Extremity: COMMON NORMALS: normal to inspection, full ROM and capillary refill normal Neuro: COMMON NORMALS: patient oriented x3 Psych: COMMON NORMALS: mental status grossly normal and Normal thought process present THOUGHT PROCESS: Normal thought process present Course Consultations: Consultation #1: Dr. Hinton accepted admission Vital Signs: Vital signs: Vital Signs Pulse Rate 110 H 12/30/24 23:04 Blood Pressure 139/116 12/30/24 23:04 Pulse Oximetry 94 12/30/24 23:04 Oxygen Delivery Me thod Room Air 12/30/24 23:04 MDM - Arrhythmia/Palpitations Medical Decision Making Patient is a 79-year-old male with history of atrial fibrillation states compliance to Eliquis, the presents to the emergency room with 3 days of palpitations, mild shortness of breath. BNP is elevated, otherwise blood work is somewhat not impressive. He has not had any chest pain. EKG shows A-fib RVR without ST segment elevation. On chest x-ray that is pending reading appears to have some curly B-lines. Given both these factors, I will give 40 of Lasix, and call hospitalist. Medical Records I reviewed the patient's medical records. Lab Data I reviewed the patient's lab results. 12/30/24 19:31 12/30/24 19:31 Radiology Impressions Chest X-Ray 12/30/24 20:13 IMPRESSION: No acute findings. Laboratory Results WBC 10.13 10^3/uL (3.29-11.43) 12/30/24 19:31 RBC 3.73 10^6/uL (3.85-5.65) L 12/30/24 19:31 Hgb 11.80 g/dL (11.27-16.99) 12/30/24: Hct 34.6 % (37-53) L 12/30/24: MCV 92.8 fl (82-101) 12/30/24 19: MCH 31.6 pg (27-33) 12/30/24: MCHC 34.1 g/dL (30-55) 12/30/24: RDW 13.6 % (12.1-15.1) 12/30/24: Plt Count 240 10^3/cmm (157-399) 12/30/24: MPV 10.8 fL (7.4-10.4) H 12/30/24: Neut % (Auto) 90.0 % 12/30/24: Lymph % (Auto) 4.9 % 12/30/24 [place] % (Auto) 3.7 % 12/30/24 Eos % (Auto) 0.1 % 12/30/24 Baso % (Auto) 0.2 % 12/30/24 Neut # (Auto) 9.12 10^3/uL (1.8-7.7) H 12/30/24: Lymph # (Auto) 0.5 10^3/uL (0.8-4.8) L 12/30/24: [place] # (Auto) 0.4 10^3/uL (0.2-0.9) 12/30/24 Eos # (Auto) 0.0 10^3/uL (0.0-0.8) 12/30/24 Baso # (Auto) 0.0 10^3/uL (0.0-0.1) 12/30/24 Nucleated RBC % (auto) 0 % 12/30/24 Nucleated RBCs # 0.0 /100WBC 12/30/24: Sodium 136 mmol/L (136-145) 12/30/24: Potassium 4.0 mmol/L (3.5-5.1) 12/30/24: Chloride 100 mmol/L (98-107) 12/30/24: Carbon Dioxide 25 mmol/L (22-29) 12/30/24 19: Anion Gap 15.0 (5-19) 12/30/24: BUN 37 mg/dL (8-23) H 12/30/24 19: Creatinine 1.5 mg/dL (0.7-1.2) H 12/30/24 19: GFR Calculation Not Reportable 12/30/24: Glucose 115 mg/dL (65-115) 12/30/24: Calculated Osmolality 292 mOsm/kg (285-295) 12/30/24: Calcium 9.2 mg/dL (8.5-10.5) 12/30/24: Magnesium 2.0 mg/dL (1.7-2.3) 12/30/24: Total Bilirubin 0.3 mg/dL (0.15-1.2) 12/30/24: AST 17 U/L (0-40) 12/30/24: ALT 17 U/L (0-41) 12/30/24: Alkaline Phosphatase 104 U/L (40-130) 12/30/24: NT-Pro-B Natriuret Pep 61421 pg/mL (0-450) H 12/30/24: Total Protein 7.0 g/dL (6.6-8.7) 12/30/24: Albumin 3.8 g/dL (3.5-5.2) 12/30/24: Globulin 3.2 g/dL (1.3-4.6) 12/30/24: TSH 1.94 uIU/mL (0.27-4.20) 12/30/24: Urine Color Yellow (Yellow) 12/30/24: Urine Appearance Clear (CLEAR) 12/30/24: Urine pH 6.0 (5-7) 12/30/24: Ur Specific [place] 1.018 (1.005-1.030) 12/30/24: Urine Protein 2+ (Negative) A 12/30/24 Urine Glucose (UA) Negative (Normal) 12/30/24 Urine Ketones Negative (Negative) 09/20/25 20:30 Urine Blood Negative (Negative) 12/30/24 20:30 Urine Nitrate Negative (Negative) 12/30/24 20:30 Urine Bilirubin Negative (Negative) 12/30/24 20:30 Urine Urobilinogen 1.0 mg/dL (Negative) 12/30/24 20:30 Ur Leukocyte Esterase Negative (Negative) 12/30/24 20:30 Urine RBC 0-2 /hpf (0-2) 12/30/24 20:30 Urine WBC 0-5 /hpf (0-5) 12/30/24 20:30 Ur Squamous Epith Cells 0-5 /hpf (0-5) 12/30/24 20:30 Amorphous Sediment Not Reportable 12/30/24 20:30 Urine Bacteria None seen /hpf (NONE) 12/30/24 20:30 Hyaline Casts 0.81 /lpf 12/30/24 20:30 Urine Opiates Screen Negative ng/mL (Negative) 12/30/24 20:30 Ur Barbiturates Screen Negative ng/mL (Negative) 12/30/24 20:30 Ur Phencyclidine Scrn Negative ng/mL (Negative) 12/30/24 20:30 Ur Amphetamines Screen Negative ng/mL (Negative) 12/30/24 20:30 U Benzodiazepines Scrn Negative ng/mL (Negative) 12/30/24 20:30 Urine Cocaine Screen Negative ng/mL (Negative) 12/30/24 20:30 U Marijuana (THC) Screen Negative ng/mL (Negative) 12/30/24 20:30 All radiology interpretation(s) finalized by discharge Discharge Plan Discharge Patient Disposition: Admitted As Inpatient Clinical Impression: Atrial fibrillation with rapid ventricular response Condition: Stable Discharge Diet: Low Salt Discharge Activity: Limit activity as instructed Coding Level of Care Code ED Patient Accounting Representative for Marcel Pritchett
[2024-12-30] MEDS: dilTIAZem 5 mg/mL SDV 5 mL 10 MG IVP (20:47)
[2024-12-30] MEDS: dilTIAZem 100 MG in sodium chloride 0.9% (add-van) 100 ML IV (20:48)
[2024-12-30 20:50] LABS: Glucose Urine UA Negative (Normal); Nitrate Urine Negative (Negative); Specific Gravity, Urine 1.018 (1.005-1.030)
[2024-12-30 20:55] LABS: Add Urine Microscopic? YES
[2024-12-30 20:57] LABS: PCP Screen Urine Negative (Negative)
[2024-12-30 20:59] LABS: Alanine Aminotransferase 17 U/L (0-41); Albumin Level 3.8 g/dL (3.5-5.2); Alkaline Phosphatase 104 U/L (40-130); Anion Gap 15.0 (5-19); Aspartate Amino Transferase 17 U/L (0-40); Blood Urea Nitrogen 37 mg/dL (8-23); Calcium 9.2 mg/dL (8.5-10.5); Carbon Dioxide 25 mmol/L (22-29); Chloride 100 mmol/L (98-107); Globulin 3.2 g/dL (1.3-4.6); Glucose 115 mg/dL (65-115); Magnesium 2.0 mg/dL (1.7-2.3); NT Pro B Type Natriuretic Pept 10230 pg/mL (0-450); Osmolality Calculated 292 mOsm/kg (285-295); Potassium 4.0 mmol/L (3.5-5.1); Sodium 136 mmol/L (136-145); Thyroid Stimulating Hormone 1.94 uIU/mL (0.27-4.20); Total Protein 7.0 g/dL (6.6-8.7)
[2024-12-30 21:00] LABS: Creatinine Clr Calc Pharmacy 40.7682
[2024-12-30] MEDS: FUROsemide 10 mg/mL SDV 4mL 40 MG IVP (21:28)
--- NOTE | 2024-12-30 22:57 | PM.HP ---
Providers/Chief Complaint Primary Care Provider: Carly Stout Chief Complaint: Fast heart rate, sob History of Present Illness Abimael Santillan is a 79 year old male with chronic atrial fibrillation noted since our EKGs 01/20/2023. 1 EKG showed heart rate in the 90s but most of them are 115 or so. He is not on rate control but is on chronic anticoagulation with apixaban. Notably on the echo cardiogram 01/20/2023 patient had LVEF of 70% and an echogenic mass in the right atrium sized 3.1 x 2.4 cm which they stated was enlarged and inked. Patient states that he noted his heart was fast and he is dyspneic on exertion. Friends attempted him to come in for the last 3 days. He has never been on rate control. Patient smokes 1 to 2 packs/day since age 20. He has noted some palpitations. He was evaluated in ED RN found to have heart rate of 140s slow down to 100 with diltiazem drip. Potassium is 4 magnesium 2. Patient received furosemide for what lungs and chest x-ray appearance of cardiomegaly and curly B-lines. Patient denies chest pain or coronary artery disease. He admits to family history with dad age 64 when the patient was only 10 years old of CHF or [place]. Mother thereafter of coronary artery disease but was 20 years younger than the father. Patient states he just gave up his 9-year-old rat terrier mix to a friend who wanted paste up artist apprentice for her dog and this allowed him to come to the hospital. Patient denies diabetes or stroke states his lipids have been good and LDL actually low and I saw in his lab that he has not had LDL of 25 and 36 in 2020 Review of Systems Narrative: General no fevers chills weight gain weight loss Cardiovascular no chest pain he is minimally dizzy Respiratory positive for dyspnea on exertion no cough or leg swelling GI no nausea vomiting diarrhea constipation has bowel movement every other day no dysuria hematuria Neuro no seizures strokes limb weakness Malignancy history negative Hematologic no history of blood clots in legs or lungs Medications/Allergies Home Medications ?Medication ?Instructions ?Recorded ?Confirmed ?Last Taken ?Type tamsulosin 0.4 mg capsule 0.4 mg PO QPM 05/22/19 11/19/23 10/24/23 History acetaminophen 500 mg tablet 500 mg PO QPM 02/16/20 11/19/2310/20/24 History albuterol sulfate 90 mcg/actuation 2 puff inhalation BID 02/16/20 11/19/23 10/25/23 History aerosol inhaler apixaban 5 mg tablet (Eliquis) 5 mg PO BID 02/16/20 11/19/23 10/21/23 History finasteride 5 mg tablet (Proscar) 5 mg PO DAILY 02/16/20 11/19/23 10/24/23 History omeprazole 20 mg capsule,delayed 20 mg PO DAILY 02/16/20 11/19/23 10/24/23 History release amlodipine 5 mg tablet 5 mg PO DAILY #180 tabs 01/26/23 11/19/23 10/24/23 Rx potassium chloride 10 mEq 10 meq PO DAILY 09/23/23 11/19/23 10/24/23 History capsule,extended release acetaminophen 325 mg capsule 325 mg PO Q6H #30 caps 10/25/23 11/19/23 Unknown Rx Allergies Allergy/AdvReac Type Severity Reaction Status Date / Time diltiazem Allergy Unknown Unknown Verified 12/30/24 19:09 enalapril Allergy Unknown Unknown Verified 12/30/24 19:09 PFSH Acute PFSH: Medical History (Updated 12/30/24 @ 23:08 by Caio Hinton MD) Tobacco abuse Right atrial mass History of colon polyps Hyperlipemia COPD (chronic obstructive pulmonary disease) Urolithiasis 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 Gross hematuria HTN (hypertension) with goal to be determined Atrial fibrillation Surgical History (Updated 11/19/23 @ 10:52 by Juan J Benton MD) History of hernia surgery Open right inguinal hernia repair with mesh.- Dr Benton History of colonoscopy with polypectomy 2016 S/P cholecystectomy S/P hernia repair Family History Mother Heart disease Father Heart disease Sister Diabetes Social History (Updated 12/30/24 @ 23:03 by Caio Hinton MD) Smoking and tobacco/nicotine status: current every day tobacco/nicotine user cigarettes Packs smoked per day: 2 Years cigarettes smoked: 49 Number of cigarettes per day: >20 [ Other cigarette details: 1 to 2 packs/day for 50 years as of 12/30/2024 he is considering quitting] Alcohol intake: former Year of sobriety/quit date alcohol: 1986 Former alcohol use details: Was heavy 8-10 beers a day and 2 quarts of whiskey on occasion Substance/Drug Use: never Additional social history: He wants full code no prolong life support. He states he talks with his kids infrequently but wants his eldest son Roderick Santillan to be decision-maker if he is incapacitated. 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 Neck he has long neck with jugular venous distention 8 cm CV irregular rhythm rate tachycardic no loud murmurs Lungs crackles heard bilaterally improved but not completely resolved with deep breaths and cough air movement is poor Abdomen positive bowel tones soft nontender Calves no tenderness cords or pretibial edema Radial pulses 2+ bilateral radial Mood and affect normal Data 12/30/24 19:31 12/30/24 19:31 A&P Assessment and plan 1. Atrial fibrillation with rapid ventricular response: Patient is admitted to hospital on diltiazem drip and I am going to start oral diltiazem 60 mg every 6 hours hold if heart rate less than 75 wean diltiazem drip as tolerated patient is already on apixaban he is chronically in A-fib so will not attempt cardioversion. Echocardiogram showed a right atrial mass in the past so this will be repeated 2. COPD (chronic obstructive pulmonary disease): Stable avoid nebulizers and less short of breath. I recommend the patient that he stop smoking and he reports interest in this. He declines nicotine patch 3. Right atrial mass: This likely contributes to his A-fib. Will recheck echocardiogram to see if this is growing. Consider cardiology consultation 4. Tobacco abuse: Patient declines nicotine patch and states that he does not have a problem smoking where he is not allowed to. I counseled him that stopping smoking would be a good option then and likely extend his life. He reports interest in smoking cessation. He might be a good candidate for Chantix PDMP PDMP Reviewed: Not Reviewed Attestations Medical Necessity Statement*: Patient is admitted to hospital on diltiazem drip for A-fib RVR and is expected to require just 1 midnight for rate control and continued anticoagulation for discharge Coding Level of Care Code 23414 Diagnoses Atrial fibrillation with rapid ventricular response I48.91 COPD (chronic obstructive pulmonary disease) J44.9 Right atrial mass I51.89 Tobacco abuse Z72.0 Time Spent (min) 70
[2024-12-31] VITALS (8 sets, daily range): BP systolic 113–151; BP diastolic 68–94; PULSE 79–102; O2SAT 91–97
--- NOTE | 2024-12-31 03:34 | PC.NURSE ---
PROVIDER AND NURSE ASKED PT ABOUT DILTIAZEM ALLERGY AND PT STATED HE ISNT SURE WHY THAT WAS LISTED A MED ALLERGY.
[2024-12-31] MEDS: dilTIAZem ER (24HR) 240 mg Capsule PO (04:15)
== END 2024-12-31 04:29 | disposition home or self-care (01) ==
PROVIDERS: Emergency Provider Physician Assistant; PCP Nurse Practitioner Adult Health
DX: I48.20 Chronic atrial fibrillation, unspecified (principal); F17.210 Nicotine dependence, cigarettes, uncomplicated; J44.9 Chronic obstructive pulmonary disease, unspecified; E78.5 Hyperlipidemia, unspecified; I10 Essential (primary) hypertension
CPT/HCPCS: 71045; 80053; 80306; 81001; 83735; 83880; 84443; 85025; 93005; 96365; 96366; 96375; 99285; J1938; J3490; J9999

== ENCOUNTER 2025-01-07 02:38 | Emergency (ER) | payer MEDICARE, OTHER, SELFPAY ==
[2025-01-07 02:41] VITALS: BP 166/93; PULSE 123; RESP 24; TEMP 36.9; O2SAT 91; BMI 21.4
--- OUTSIDE RECORDS SUMMARY | 2025-01-07 02:43 | XMS_ITS | Encounter Summary ---
Author Organization [facility] Address [address] [place] [address] Care Team Providers Care Curriculum Counselor Name Role Phone Manuel Morales MD Primary Care Provider [phone] Encounter Details Date Type Department Care Team (Latest Contact Info) Description 02/16/2002 Outpatient Historical [facility] Medicine [address] [phone] Manuel Morales MD [address] [phone] JOINT PAIN-UNSPEC (Primary Dx); HYPERLIPIDEMIA NEC/NOS; AFTERCARE PENITENTIARY USE MEDICATN; OTHER MALAISE AND FATIGUE Social History Tobacco Use Types Packs/Day Years Used Date Smoking Tobacco: Never Assessed Sex and Gender Information Value Date Recorded Sex Assigned at Not on file 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
--- OUTSIDE RECORDS SUMMARY | 2025-01-07 02:43 | XMS_ITS | Encounter Summary ---
Author Organization [facility] Address [address] [place] [address] Care Team Providers Care Detailer Pharmaceuticals Name Role Phone Manuel Morales MD Primary Care Provider [phone] Encounter Details Date Type Department Care Team (Latest Contact Info) Description 01/27/2002 Outpatient Historical [facility] Medicine [address] [phone] Katherin Monte MD [address] [place] [phone] ABDOMINAL PAIN UNSPEC SITE (Primary Dx); DYSURIA; PROTEINURIA Social History Tobacco Use Types Packs/Day Years Used Date Smoking Tobacco: Never Assessed Sex and Gender Information Value Date Recorded Sex Assigned at Not on file 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
--- OUTSIDE RECORDS SUMMARY | 2025-01-07 02:43 | XMS_ITS | Encounter Summary ---
Author Organization [facility] Address [address] [place] [address] Care Team Providers Care Apparel Cutter Name Role Phone Manuel Morales MD Primary Care Provider [phone] Encounter Details Date Type Department Care Team (Late st Contact Info) Description 09/19/2002 Outpatient Historical [facility] [address] [place] [phone] Social History Tobacco Use Types Packs/Day Years Used Date Smoking Tobacco: Never Assessed Sex and Gender Information Value Date Recorded Sex Assigned at Not on file 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
--- OUTSIDE RECORDS SUMMARY | 2025-01-07 02:43 | XMS_ITS | Encounter Summary ---
Author Organization [facility] Address [address] [place] [address] Care Team Providers Care Elevator Tender Name Role Phone Manuel Morales MD Primary Care Provider + [phone] Reason for Referral * CT Scan (Routine) - Closed Specialty Diagnoses / Procedures Referred By Contac t Referred To Contact Radiology Diagnoses Anterior chest wall pain Unexplained weight loss Smoker Procedures CT CHEST W WO CONTRAST Spencer Mills MD [facility] [place] [place] [address] Phone: tel: fax: [facility] CT Scan [place] [address] [facility] [address] [place] [address] Phone: tel: fax: Referral ID Status Reason Start Date Expiration Date V isits Requested Visits Authorized [id number] Closed [facility] CTS to Schedule ([facility]) 11/04/2018 12/05/2019 1 1 Encounter Details Date Type Department Care Team (Latest Contact Info) Description 11/04/2018 Ancillary Orders [facility] [address] [facility] [address] [place] [phone] Spencer Mills MD [address] [place], [place] [address] [address] Anterior chest wall pain; Unexplained weight [...] and Family Not on file 09/18/2018 Attends Sikhism Services Not on file 09/18 Active Member of Clubs or Organizations Not on f ile 09/18/2018 Attends Club or Organization Meetings Not on kym e 09/18/2018 Are you , , di vorced, , never , or living with a partner? 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
--- OUTSIDE RECORDS SUMMARY | 2025-01-07 02:43 | XMS_ITS | Encounter Summary ---
Author Organization [facility] Address [address] [place] [address] Care Team Providers Care Risk Control Specialist Name Role Phone Manuel Morales MD Primary Care Provider [phone] Encounter Details Date Type Department Care Team (Latest Contact Info) Description 07/26/[address] 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
--- OUTSIDE RECORDS SUMMARY | 2025-01-07 02:43 | XMS_ITS | Clinical Summary ---
Author Organization [facility] Address [address] [facility] [place] [address] Care Team Providers Care Bar Pointer Name Role Phone Manuel Morales MD Primary [...] on file Legal Sex Male 5:01 AM BUILDING SERVICES COORDINATOR Gender Identity Not on file Sexual Orientation [...] Advance Directives For more information, please contact: [phone] * Full Code (Latest Code Status on File) Date Activated Date Inactivated Comments 09/17/2018 9:37 PM 09/23/2018 7:30 PM Care Teams Bar Pointer Relationship Specialty Start Date End Date Manuel Morales MD PCP - General 05/18/07
--- OUTSIDE RECORDS SUMMARY | 2025-01-07 02:43 | XMS_ITS | Clinical Summary ---
Author Organization [facility] Address [address] [place]: Epic Prelude ADT [place]AC[place] RAPP [address] Care Team Providers Care Ems Director Name Role Phone Manuel Morales MD Primary Care Provider [phone] Allergies No known active allergies Medications dicyclomine [...] 50 mg by mouth daily at bedtime. Active albuterol (PROVENTIL,SUSAN WILLIE) 2.5 mg /3 [...] and Family Not on file 09/18/2018 Attends Jain Services Not on file 09/18 Active Member of Clubs or Organizations Not on f ile 09/18/2018 Attends Club or Organization Meetings Not on kym e 09/18/2018 Are you , , di vorced, , never , or living with a partner? 09/18/2018 Sex and Gender Information Value Date Recorded Sex Assigned at Not on file Legal Sex Male 11:10 AM SURVEY DIRECTOR Gender Identity Not on file Sexual Orientation [...] 2024 Insurance MEDICARE PART A AND B [facility] Care Teams Ems Director Relationship Specialty Start Date End Date Manuel Morales MD [address] [place] [address] PCP - General 05/18/07
--- OUTSIDE RECORDS SUMMARY | 2025-01-07 02:43 | XMS_ITS | Encounter Summary ---
Author Organization [facility] Address [address] [place] [address] Care Team Providers Care Oracle Fusion Developer Name Role Phone Manuel Morales MD Primary Care Provider [phone] Encounter Details Date Type Department Care Team (Late st Contact Info) Description 03/14/2002 Outpatient Historical [facility] Medicine [address] [phone] Manuel Morales MD [address] [phone] Social History Tobacco Use Types Packs/Day Years Used Date Smoking Tobacco: Never Assessed Sex and Gender Information Value Date Recorded Sex Assigned at Not on file Legal Sex Male 5: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
--- OUTSIDE RECORDS SUMMARY | 2025-01-07 02:43 | XMS_ITS | Encounter Summary ---
Author Organization [facility] Address [address] [place] [address] Care Team Providers Care Material Handler 2Nd Shift Name Role Phone Manuel Morales MD Primary Care Provider [phone] Encounter Details Date Type Department Care Team (Latest Contact Info) Description 09/28/2002 Outpatient Historical [facility] Medicine [address] [phone] Manuel Morales MD [address] [phone] DERMATITIS NOS (Primary Dx) Social History Tobacco Use Types Packs/Day Years Used Date Smoking Tobacco: Never Assessed Sex and Gender Information Value Date Recorded Sex Assigned at Not on file 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
--- OUTSIDE RECORDS SUMMARY | 2025-01-07 02:43 | XMS_ITS | Encounter Summary ---
Author Organization [facility] Address [address] [place] [address] Care Team Providers Care Office Aide Name Role Phone Manuel Morales MD Primary Care Provider [phone] Encounter Details Date Type Department Care Team (Latest Contact Info) Description 02/03/2002 Outpatient Historical [facility] Medicine [address] [phone] Katherin Monte MD [address] [place] [phone] Hypertrophy of prostate (Primary Dx); ARTHROPATHY NOS-UNSPEC Social History Tobacco Use Types Packs/Day Years Used Date Smoking Tobacco: Never Assessed Sex and Gender Information Value Date Recorded Sex Assigned at Not on file 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
--- OUTSIDE RECORDS SUMMARY | 2025-01-07 02:43 | XMS_ITS | Encounter Summary ---
Author Organization [facility] Address [address] [place] [address] Care Team Providers Care Machine Cementer And Folder Name Role Phone Manuel Morales MD Primary Care Provider [phone] Encounter Details Date Type Department Care Team (Late st Contact Info) Description 07/26/2002 Outpatient Historical [facility] [address] [place] [phone] Social History Tobacco Use Types Packs/Day Years Used Date Smoking Tobacco: Never Assessed Sex and Gender Information Value Date Recorded Sex Assigned at Not on file Legal Sex Male 5:01 AM GARBAGE MAN Gender Identity Not on file Sexual Orientation Not on file documented as of this encounter Plan of Treatment Not on file documented as of this encounter Visit Diagnoses Not on filedocumented in this encounter Care Teams Machine Cementer And Folder Relationship Specialty Start Date End Date Manuel Morales MD PCP - General 05/18/07 documented as of this encounter
--- OUTSIDE RECORDS SUMMARY | 2025-01-07 02:43 | XMS_ITS | Encounter Summary ---
Author Organization [facility] Address [address] [facility] [address] [place] [address] Phone Care Team Providers Care Wildlife Refuge Manager Name Role Phone Spencer Foley MD Primary Care Provider [phone] Encounter Details Date Type Department Care Team (Late st Contact Info) Description 06/27/2020 Orders Only [facility] [address] [facility] [address] [place] [address] Social History Tobacco Use Types [...] on filedocumented in this encounter Care Teams Wildlife Refuge Manager Relationship Specialty Start Date End Date Spencer Foley MD [address] [place] [address] PCP - General Family Medicine 06/27/20 documented as of this encounter
--- OUTSIDE RECORDS SUMMARY | 2025-01-07 02:43 | XMS_ITS | Encounter Summary ---
Author Organization [facility] Address [address] [place] [address] Care Team Providers Care Ear Machine Operator Name Role Phone Manuel Morales MD Primary Care Provider [phone] Encounter Details Date Type Department Care Team (Latest Contact Info) Description 03/30/2002 Outpatient Historical [facility] Medicine [address] [phone] Manuel Morales MD [address] [phone] PERFORAT TYMPAN MEMB NOS (Primary Dx) Social History Tobacco Use Types Packs/Day Years Used Date Smoking Tobacco: Never Assessed Sex and Gender Information Value Date Recorded Sex Assigned at Not on file Legal Sex Male 5:01 AM RN INFUSION Gender Identity Not on file Sexual Orientation Not on file documented as of this encounter Plan of Treatment Not on file documented as of this encounter Visit Diagnoses Diagnosis Perforation of tympanic membrane, unspecified- Primary documented in this encounter Care Teams Ear Machine Operator Relationship Specialty Start Date End Date Manuel Morales MD PCP - General 05/18/07 documented as of this encounter
--- OUTSIDE RECORDS SUMMARY | 2025-01-07 02:43 | XMS_ITS | Encounter Summary ---
Author Organization [facility] Address [address] [place] [address] Care Team Providers Care Electroencephalograph Technician Name Role Phone Manuel Morales MD Primary Care Provider Encounter Details Date Type Department Care Team (Latest Contact Info) Description 03/15/2003 Outpatient Historical [facility] Medicine [address] [phone] Manuel Morales MD [address] [phone] OSTEOARTHROS NOS-OTHER SITE (Primary Dx) Social History Tobacco Use Types Packs/Day Years Used Date Smoking Tobacco: Never Assessed Sex and Gender Information Value Date Recorded Sex Assigned at Not on file 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
--- OUTSIDE RECORDS SUMMARY | 2025-01-07 02:43 | XMS_ITS | Encounter Summary ---
Author Organization [facility] Address [address] [place] [address] Care Team Providers Care Chief Accountant Name Role Phone Manuel Morales MD Primary Care Provider [phone] Encounter Details Date Type Department Care Team (Late st Contact Info) Description 02/16/2002 Outpatient Historical [facility] Medicine [address] [address] Jaxon Newton, AUTO CUSTOMIZE PAINTER [address] [place] [address] Social History Tobacco Use Types Packs/Day Years Used Date Smoking Tobacco: Never Assessed Sex and Gender Information Value Date Recorded Sex Assigned at Not on file Legal Sex Male 5:01 AM RN MANAGED CARE Gender Identity Not on file Sexual Orientation Not on file documented as of this encounter Plan of Treatment Not on file documented as of this encounter Visit Diagnoses Not on filedocumented in this encounter Care Teams Chief Accountant Relationship Specialty Start Date End Date Manuel Morales MD PCP - General 05/18/07 documented as of this encounter
--- OUTSIDE RECORDS SUMMARY | 2025-01-07 02:43 | XMS_ITS | Encounter Summary ---
Author Organization [facility] Address [address] [place] [address] Care Team Providers Care Drug Enforcement Agent Name Role Phone Manuel Morales MD Primary Care Provider [phone] Encounter Details Date Type Department Care Team (Latest Contact Info) Description 07/11/2001 Outpatient Historical [facility] Medicine [place] [address] [phone] Manuel Morales MD [address] [address] NONINFEC GASTROENTERIT NEC (Primary Dx) Social History Tobacco Use Types Packs/Day Years Used Date Smoking Tobacco: Never Assessed Sex and Gender Information Value Date Recorded Sex Assigned at Not on file 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
--- OUTSIDE RECORDS SUMMARY | 2025-01-07 02:43 | XMS_ITS | Encounter Summary ---
Author Organization [facility] Address [address] [place] [address] Care Team Providers Care Tooth Cutter Contact Wheel Name Role Phone Manuel Morales MD Primary Care Provider Encounter Details Date Type Department Care Team (Latest Contact Info) Description 08/05/2000 Outpatient Historical [facility] Medicine [address] [phone] Manuel Morales MD [address] [address] Pain in joint, lower leg (Primary Dx) Social History Tobacco Use Types Packs/Day Years Used Date Smoking Tobacco: Never Assessed Sex and Gender Information Value Date Recorded Sex Assigned at Not on file Legal Sex Male 5:01 AM INSOLE AND OUTSOLE SPLITTER Gender Identity Not on file Sexual Orientation Not on file documented as of this encounter Plan of Treatment Not on file documented as of this encounter Visit Diagnoses Diagnosis Pain in joint, lower leg- Primary documented in this encounter Care Teams Tooth Cutter Contact Wheel Relationship Specialty Start Date End Date Manuel Morales MD PCP - General 05/18/07 documented as of this encounter
--- OUTSIDE RECORDS SUMMARY | 2025-01-07 02:43 | XMS_ITS | Encounter Summary ---
Author Organization [facility] Address [address] [place] [address] Care Team Providers Care Consulting Solution Manager Name Role Phone Manuel Morales MD Primary Care Provider [phone] Encounter Details Date Type Department Care Team (Latest Contact Info) Description 03/21/2002 Outpatient Historical [facility] Medicine [address] [phone] Manuel Morales MD [address] [address] PERFORAT TYMPAN MEMB NOS (Primary Dx) Social History Tobacco Use Types Packs/Day Years Used Date Smoking Tobacco: Never Assessed Sex and Gender Information Value Date Recorded Sex Assigned at Not on file 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
--- OUTSIDE RECORDS SUMMARY | 2025-01-07 02:43 | XMS_ITS | Encounter Summary ---
Author Organization [facility] Address [address] [place] [address] Care Team Providers Care Rehabilitation Caseworker Name Role Phone Manuel Morales MD Primary Care Provider Encounter Details Date Type Department Care Team (Latest Contact Info) Description 03/14/2002 Outpatient Historical [facility] Medicine [address] [phone] Manuel Morales MD [address] [address] Hypertrophy of prostate (Primary Dx); Split of urinary stream Social History Tobacco Use Types Packs/Day Years Used Date Smoking Tobacco: Never Assessed Sex and Gender Information Value Date Recorded Sex Assigned at Not on file 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
--- OUTSIDE RECORDS SUMMARY | 2025-01-07 02:43 | XMS_ITS | Encounter Summary ---
Author Organization [facility] Address [address] [place] [address] Care Team Providers Care Jet Dyeing Machine Operator Name Role Phone Manuel Morales MD Primary Care Provider [phone] Encounter Details Date Type Department Care Team (Late st Contact Info) Description 04/26/2002 Outpatient Historical [facility] [address] [place] 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
--- OUTSIDE RECORDS SUMMARY | 2025-01-07 02:43 | XMS_ITS | Encounter Summary ---
Author Organization [facility] Address [address] [place] [address] Care Team Providers Care Pulmonology Technician Name Role Phone Manuel Morales MD Primary Care Provider [phone] Encounter Details Date Type Department Care Team (Latest Contact Info) Description 06/21/2002 Outpatient Historical [facility] Ear, Nose and Throat [address] [place] [address] [place] [address] [place] [address] Gabriel Frances MD [address] [address] PERFORAT TYMPAN MEMB NOS (Primary Dx) Social History Tobacco Use Types Packs/Day Years Used Date Smoking Tobacco: Never Assessed Sex and Gender Information Value Date Recorded Sex Assigned at Not on file Legal Sex Male 5:01 AM CONSERVATION OR HERITAGE ARCHITECT Gender Identity Not on file Sexual Orientation Not on file documented as of this encounter Plan of Treatment Not on file documented as of this encounter Visit Diagnoses Diagnosis Perforation of tympanic membrane, unspecified- Primary documented in this encounter Care Teams Pulmonology Technician Relationship Specialty Start Date End Date Manuel Morales MD PCP - General 05/18/07 documented as of this encounter
--- OUTSIDE RECORDS SUMMARY | 2025-01-07 02:43 | XMS_ITS | Encounter Summary ---
Author Organization [facility] Address [address] [place] [address] Care Team Providers Care Process Eng Name Role Phone Manuel Morales MD Primary Care Provider [phone] Encounter Details Date Type Department Care Team (Late st Contact Info) Description 05/23/2002 Outpatient Historical [facility] Ear, Nose and Throat [address] [place] 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
--- OUTSIDE RECORDS SUMMARY | 2025-01-07 02:43 | XMS_ITS | Encounter Summary ---
Author Organization [facility] Address [address] [place] [address] Care Team Providers Care Senior Program Analyst Name Role Phone Manuel Morales MD Primary Care Provider Encounter Details Date Type Department Care Team (Latest Contact Info) Description 08/23/2000 Outpatient Historical [facility] Medicine [address] [phone] Manuel Morales MD [address] [phone] Pain in joint, lower leg (Primary Dx) Social History Tobacco Use Types Packs/Day Years Used Date Smoking Tobacco: Never Assessed Sex and Gender Information Value Date Recorded Sex Assigned at Not on file 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
--- OUTSIDE RECORDS SUMMARY | 2025-01-07 02:43 | XMS_ITS | Encounter Summary ---
Author Organization [facility] Address [address] [place] [address] Care Team Providers Care Health Care Liaison Name Role Phone Manuel Morales MD Primary Care Provider [phone] Encounter Details Date Type Department Care Team (Latest Contact Info) Description 05/23/2002 Outpatient Historical [facility] [place] [address] [place] [phone] Gabriel Frances MD [address] [address] PERFORAT TYMPAN MEMB NOS (Primary Dx) Social History Tobacco Use Types Packs/Day Years Used Date Smoking Tobacco: Never Assessed Sex and Gender Information Value Date Recorded Sex Assigned at Not on file 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
--- OUTSIDE RECORDS SUMMARY | 2025-01-07 02:43 | XMS_ITS | Clinical Summary ---
Author Organization [facility] Address [address] [place] [address] Care Team Providers Care Embroidery Designer Name Role Phone Spencer Foley MD Primary Care Provider [phone] Allergies No known active allergies Medications tiotropium [...] complete this topic Insurance Medicare Care Teams Embroidery Designer Relationship Specialty Start Date End Date Spencer Foley MD [address] [place] [phone] PCP - General Family Medicine 06/27/20
--- OUTSIDE RECORDS SUMMARY | 2025-01-07 02:43 | XMS_ITS | Encounter Summary ---
Author Organization [facility] Address [address] [place] [address] Care Team Providers Care Make Up Man Name Role Phone Manuel Morales MD Primary Care Provider Encounter Details Date Type Department Care Team (Latest Contact Info) Description 09/21/2002 Outpatient Historical [facility] [address] [place] [address] Manuel Morales MD [address] [place] [address] CHEST PAIN NOS (Primary Dx) Social History Tobacco Use Types Packs/Day Years Used Date Smoking Tobacco: Never Assessed Sex and Gender Information Value Date Recorded Sex Assigned at Not on file 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
--- OUTSIDE RECORDS SUMMARY | 2025-01-07 02:43 | XMS_ITS | Encounter Summary ---
Author Organization [facility] Address [address] [place] [address] Care Team Providers Care Crop Ranch Hand Name Role Phone Manuel Morales MD Primary Care Provider [phone] Encounter Details Date Type Department Care Team (Latest Contact Info) Description 04/26/2002 Outpatient Historical [facility] Ear, Nose and Throat [address] [place] 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
--- OUTSIDE RECORDS SUMMARY | 2025-01-07 02:43 | XMS_ITS | Encounter Summary ---
Author Organization [facility] Address [address] [place] [address] Care Team Providers Care Assistant Professor In Family Studies Name Role Phone Manuel Morales MD Primary Care Provider [phone] Encounter Details Date Type Department Care Team (Latest Contact Info) Description 09/18/2002 Outpatient Historical [facility] Medicine [address] [phone] Manuel Morales MD [address] [address] ABDOMINAL PAIN UNSPEC SITE (Primary Dx) Social History Tobacco Use Types Packs/Day Years Used Date Smoking Tobacco: Never Assessed Sex and Gender Information Value Date Recorded Sex Assigned at Not on file 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
--- OUTSIDE RECORDS SUMMARY | 2025-01-07 02:43 | XMS_ITS | Encounter Summary ---
Author Organization [facility] Address [address] [place] [address] Care Team Providers Care Broaching Machine Operator Name Role Phone Manuel Morales MD Primary Care Provider [phone] Encounter Details Date Type Department Care Team (Latest Contact Info) Description 07/26/2002 Outpatient Historical [facility] Ear, Nose and Throat [address] [place] [address] 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
--- OUTSIDE RECORDS SUMMARY | 2025-01-07 02:43 | XMS_ITS | Encounter Summary ---
Author Organization [facility] Address [address] [place] [address] Care Team Providers Care Electric Motor Tester Name Role Phone Manuel Morales MD Primary Care Provider [phone] Encounter Details Date Type Department Care Team (Latest Contact Info) Description 09/21/2002 Outpatient Historical [facility] Imaging [facility] [address] [place] [address] Manuel Morales MD [address] [place] [address] ABDOMINAL PAIN RUQ (Primary Dx) Social History Tobacco Use Types Packs/Day Years Used Date Smoking Tobacco: Never Assessed Sex and Gender Information Value Date Recorded Sex Assigned at Not on file 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
[2025-01-07 02:52] VITALS: BP 166/93; PULSE 123; RESP 24; TEMP 36.9; O2SAT 91
--- NOTE | 2025-01-07 03:02 | XRR_ITS ---
PROCEDURE INFORMATION: Exam: XR Chest Exam date and time: 01/07/2025 3:09 AM Age: 79 years old Clinical indication: Shortness of breath; Prior surgery; Surgery date: 6+ months; Surgery type: Gb; C/O SOB. History of copd. TECHNIQUE: Imaging protocol: Radiologic exam of the chest. Views: 1 view. COMPARISON: CR (CHEST, ) 12/30/2024 8:15 PM FINDINGS: Lungs: Hazy opacity overlie the right mid lung zone. Pneumonia is a differential consideration. Pleural spaces: Unremarkable. No pleural effusion. No pneumothorax. Heart/Mediastinum: Unremarkable. No cardiomegaly. Bones/joints: Vertebroplasty cement material midthoracic spine. XR/XR chest 1V portable [id number] IMPRESSION: Hazy opacity overlie the right mid lung zone. Pneumonia is a differential consideration.
[2025-01-07 03:23] VITALS: BP 157/84; PULSE 115; RESP 16; O2SAT 95
[2025-01-07] MEDS: digoxin 250 mcg/ml INJ 2 mL 125 MCG IVP (03:27)
[2025-01-07 03:44] VITALS: PULSE 107; RESP 20; O2SAT 97
--- NOTE | 2025-01-07 03:48 | W.ED.SOB ---
HPI - SOB/Dyspnea General: Chief Complaint: Shortness of Breath/Dyspnea Stated Complaint: SOB Time Seen by Provider: 01/07/25 03:09 History of Present Illness: HPI Narrative: Patient is a 79-year-old male with a history of COPD and atrial fibrillation who presents with acute shortness of breath and coughing that woke him from sleep. He reports the shortness of breath has been severe enough that he can barely breathe. Patient denies chest pain. He reports having a cough for a while and has been taking hspp-gaq-wucsuvd cough medication without significant relief. He reports wheezing that started a couple of days ago but worsened tonight. Patient denies known fever. He received a breathing treatment in the ambulance with improvement in his oxygen saturation to 100%. Patient does not have home oxygen or a nebulizer, though he acknowledges that having home oxygen might have prevented this emergency visit. Patient is a smoker. Related Data Home Medications ?Medication ?Instructions ?Recorded ?Confirmed tamsulosin 0.4 mg capsule 0.4 mg PO QPM 05/22/19 11/19/23 acetaminophen 500 mg tablet 500 mg PO QPM 02/16/20 11/19/23 albuterol sulfate 90 mcg/actuation 2 puff inhalation BID 02/16/20 11/19/23 aerosol inhaler apixaban 5 mg tablet (Eliquis) 5 mg PO BID 02/16/20 11/19/23 finasteride 5 mg tablet (Proscar) 5 mg PO DAILY 02/16/20 11/19/23 omeprazole 20 mg capsule,delayed 20 mg PO DAILY 02/16/20 11/19/23 release potassium chloride 10 mEq 10 meq PO DAILY 09/23/23 11/19/23 capsule,extended release Previous Rx's ?Medication ?Instructions ?Recorded amlodipine 5 mg tablet 5 mg PO DAILY #180 tabs 01/26/23 acetaminophen 325 mg capsule 325 mg PO Q6H #30 caps 10/25/23 diltiazem HCl 240 mg capsule,24 240 mg PO DAILY #30 caps 12/31/24 hr,extended release (Tiazac) levofloxacin 750 mg tablet 750 mg PO DAILY 7 days #7 tabs 01/07/25 methylprednisolone 4 mg tablets in See Rx Instructions PO .COMPLEX 01/07/25 a dose pack (Medrol (Joe)) #21 ea Allergies Allergy/AdvReac Type Severity Reaction Status Date / Time diltiazem Allergy Unknown Unknown Verified 12/30/24 19:09 enalapril Allergy Unknown Unknown Verified 12/30/24 19:09 PFSH ED PFSH: Medical History Tobacco abuse Right atrial mass History of colon polyps Hyperlipemia COPD (chronic obstructive pulmonary disease) Urolithiasis 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 Gross hematuria HTN (hypertension) with goal to be determined Atrial fibrillation Surgical History History of hernia surgery Open right inguinal hernia repair with mesh.- Dr Benton History of colonoscopy with polypectomy 2016 S/P cholecystectomy S/P hernia repair Family History Mother Heart disease Father Heart disease Sister Diabetes Social History Smoking and tobacco/nicotine status: current every day tobacco/nicotine user cigarettes Packs smoked per day: 2 Years cigarettes smoked: 49 [ Other cigarette details: 1 to 2 packs/day for 50 years as of 12/30/2024 he is considering quitting] Alcohol intake: former Year of sobriety/quit date alcohol: 1986 Former alcohol use details: Was heavy 8-10 beers a day and 2 quarts of whiskey on occasion Substance/Drug Use: never Additional social history: He wants full code no prolong life support. He states he talks with his kids infrequently but wants his eldest son Roderick Santillan to be decision-maker if he is incapacitated. 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 E6 Physical Exam Const: COMMON NORMALS: no acute distress GENERAL APPEARANCE: cooperative ORIENTATION/CONSCIOUSNESS: Yes awake, Yes oriented to person, Yes oriented to place and Yes oriented to time HENMT: COMMON NORMALS: normocephalic, atraumatic and Normal external nose present HEAD & SCALP: normocephalic and atraumatic FACE & SINUS: face symmetric NOSE: Normal external nose present Eye: COMMON NORMALS: Equal, round and reactive pupils present and EOMs intact bilaterally PUPIL: Yes Equal, round and reactive pupils present Chest: CHEST: Yes Symmetrical chest wall rise Resp: COMMON NORMALS: normal respiratory effort and clear to auscultation bilaterally AUSCULTATION: clear to auscultation bilaterally Cardio: RATE: tachycardic RHYTHM: abnormal rhythm irregularly irregular Extremity: COMMON NORMALS: no pedal edema Neuro: SENSORIUM/ORIENTATION: Yes oriented to person, Yes oriented to place and Yes oriented to time Course Vital Signs: Vital signs: Vital Signs Temperature 98.4 F 01/07/25 02:52 Pulse Rate 105 H 01/07/25 05:28 Respiratory Rate 18 01/07/25 05:28 Blood Pressure 149/77 01/07/25 05:28 Pulse Oximetry 93 01/07/25 05:28 Oxygen Delivery Me thod Nasal Cannula 01/07/25 03:44 Oxygen Flow Rate 2 01/07/25 03:44 MDM - SOB/Dyspnea Medical Decision Making Patient is given breathing treatment. Breathing status is improved. Hemoglobin is 12.5. White blood cell count 11.7. Potassium is 3.2 and is repleted. Creatinine is 1.3. Chest x-ray shows right midlung infiltrate consistent with potential pneumonia. This is treated with IV Zosyn here. BNP is 6000, which was lower than his admission. He is given Lasix here as well. Stable for discharge on antibiotics. Close outpatient follow-up. Return for any worsening symptoms despite treatment. Lab Data 01/07/25 02:45 01/07/25 02:45 Labs/Radiology: Radiology Impressions Chest X-Ray 01/07/25 03:02 IMPRESSION: Hazy opacity overlie the right mid lung zone. Pneumonia is a differential consideration. Laboratory Results WBC 11.69 10^3/uL (3.29-11.43) H 01/07/25 02:45 RBC 3.95 10^6/uL (3.85-5.65) 01/07/25 02:45 Hgb 12.50 g/dL (11.27-16.99) 01/07/25 02:45 Hct 37.4 % (37-53) 01/07/25 02:45 MCV 94.7 fl (82-101) 01/07/25 02:45 MCH 31.6 pg (27-33) 01/07/25 02:45 MCHC 33.4 g/dL (30-55) 01/07/25 02:45 RDW 13.8 % (12.1-15.1) 01/07/25 02:45 Plt Count 182 10^3/cmm (157-399) 01/07/25 02:45 MPV 11.4 fL (7.4-10.4) H 01/07/25 02:45 Neut % (Auto) 73.3 % 01/07/25 02:45 Lymph % (Auto) 15.0 % 01/07/25 02:45 Kings % (Auto) 10.2 % 01/07/25 02:45 Eos % (Auto) 0.6 % 01/07/25 02:45 Baso % (Auto) 0.2 % 01/07/25 02:45 Neut # (Auto) 8.58 10^3/uL (1.8-7.7) H 01/07/25 02:45 Lymph # (Auto) 1.8 10^3/uL (0.8-4.8) 01/07/25 02:45 Kings # (Auto) 1.2 10^3/uL (0.2-0.9) H 01/07/25 02:45 Eos # (Auto) 0.1 10^3/uL (0.0-0.8) 01/07/25 02:45 Baso # (Auto) 0.0 10^3/uL (0.0-0.1) 01/07/25 02:45 Nucleated RBC % (auto) 0 % 01/07/25 02:45 Nucleated RBCs # 0.0 /100WBC 01/07/25 02:45 PT 15.10 SECONDS (12.1-14.9) H 01/07/25 02:45 INR 1.11 (0.8-1.2) 01/07/25 02:45 Sodium 136 mmol/L (136-145) 01/07/25 02:45 Potassium 3.2 mmol/L (3.5-5.1) L 01/07/25 02:45 Chloride 97 mmol/L (98-107) L 01/07/25 02:45 Carbon Dioxide 25 mmol/L (22-29) 01/07/25 02:45 Anion Gap 17.2 (5-19) 01/07/25 02:45 BUN 18 mg/dL (8-23) 01/07/25 02:45 Creatinine 1.3 mg/dL (0.7-1.2) H 01/07/25 02:45 GFR Calculation Not Reportable 01/07/25 02:45 Glucose 126 mg/dL (65-115) H 01/07/25 02:45 Calculated Osmolality 285 mOsm/kg (285-295) 01/07/25 02:45 Lactic Acid 1.3 mmol/L (0.5-2.2) 01/07/25 02:45 Calcium 9.0 mg/dL (8.5-10.5) 01/07/25 02:45 Total Bilirubin 1.0 mg/dL (0.15-1.2) 01/07/25 02:45 AST 20 U/L (0-40) 01/07/25 02:45 ALT 16 U/L (0-41) 01/07/25 02:45 Alkaline Phosphatase 129 U/L (40-130) 01/07/25 02:45 NT-Pro-B Natriuret Pep 6610 pg/mL (0-450) H 01/07/25 02:45 Total Protein 7.2 g/dL (6.6-8.7) 01/07/25 02:45 Albumin 4.0 g/dL (3.5-5.2) 01/07/25 02:45 Globulin 3.2 g/dL (1.3-4.6) 01/07/25 02:45 Influenza A (PCR) Negative (Negative) 01/07/25 03:25 Influenza Type B (PCR) Negative (Negative) 01/07/25 03:25 RSV (PCR) Negative (Negative) 01/07/25 03:25 SARS-CoV-2 (PCR) Negative (Negative) 01/07/25 03:25 All radiology interpretation(s) finalized by discharge Discharge Plan Discharge Patient Disposition: Home Clinical Impression: Atrial fibrillation, Pneumonia Condition: Stable Prescriptions: New levofloxacin 750 mg tablet 750 mg PO DAILY 7 Days Qty: 7 0RF methylprednisolone [Medrol (Joe)] 4 mg tablets,dose pack See Rx Instructions .ROUTE .COMPLEX Qty: 21 0RF Rx Instructions: orally per package directions No Action tamsulosin 0.4 mg capsule 0.4 mg PO QPM albuterol sulfate 90 mcg/actuation HFA aerosol inhaler 2 puff INHALATION BID omeprazole 20 mg capsule,delayed release(DR/EC) 20 mg PO DAILY Eliquis 5 mg tablet 5 mg PO BID finasteride [Proscar] 5 mg tablet 5 mg PO DAILY acetaminophen 500 mg tablet 500 mg PO QPM potassium chloride 10 mEq capsule, extended release 10 meq PO DAILY amlodipine 5 mg tablet 5 mg PO DAILY Qty: 180 3RF acetaminophen 325 mg capsule 325 mg PO Q6H Qty: 30 0RF diltiazem HCl [Tiazac] 240 mg capsule,extended release 24 hr 240 mg PO DAILY Qty: 30 0RF Discharge Orders: Discharge ED (Routine); Ordered 01/07/25 Ordered By: Steve Choi Referrals: Carly Stout [Primary Care Provider] Patient Instructions: A-fib (Atrial Fibrillation) (ED), Pneumonia (ED), Opioid Safety, Pain Management, Patient Portal & Irineo Instructions Activity Restrictions/Additional Instructions: Use your inhaler every 4 hours while awake for the next 48 hours whether you feel you needed or not. You may use it as needed following that. Medications as directed. Return for any worsening symptoms despite treatment. Call your doctor tomorrow morning for a follow-up appointment this week. Print Language: Swedish Coding Level of Care Code ED Fishing Boat Captain for Marcel Pritchett
[2025-01-07 03:49] LABS: Hematocrit 37.4 % (37-53); Hemoglobin 12.50 g/dL (11.27-16.99); Mean Corpuscular HGB Conc 33.4 g/dL (30-55); Mean Corpuscular Hemoglobin 31.6 pg (27-33); Mean Corpuscular Volume 94.7 fl (82-101); Nucleated Red Blood Cells % 0 %; Platelet Count 182 10^3/cmm (157-399); Red Blood Count 3.95 10^6/uL (3.85-5.65); White Blood Count 11.69 10^3/uL (3.29-11.43)
[2025-01-07 03:59] LABS: INR 1.11 (0.8-1.2); Prothrombin Time 15.10 SECONDS (12.1-14.9)
[2025-01-07 04:10] LABS: Lactic Sepsis W/Reflex 1.3 mmol/L (0.5-2.2)
[2025-01-07 04:15] LABS: Respiratory Syncytial Virus Ce NEGATIVE (Negative); SARS-CoV-2 PCR NEGATIVE (Negative)
[2025-01-07 04:20] LABS: Alanine Aminotransferase 16 U/L (0-41); Albumin Level 4.0 g/dL (3.5-5.2); Alkaline Phosphatase 129 U/L (40-130); Anion Gap 17.2 (5-19); Aspartate Amino Transferase 20 U/L (0-40); Blood Urea Nitrogen 18 mg/dL (8-23); Calcium 9.0 mg/dL (8.5-10.5); Carbon Dioxide 25 mmol/L (22-29); Chloride 97 mmol/L (98-107); Globulin 3.2 g/dL (1.3-4.6); Glucose 126 mg/dL (65-115); NT Pro B Type Natriuretic Pept 6610 pg/mL (0-450); Osmolality Calculated 285 mOsm/kg (285-295); Potassium 3.2 mmol/L (3.5-5.1); Sodium 136 mmol/L (136-145); Total Protein 7.2 g/dL (6.6-8.7)
[2025-01-07 04:23] LABS: Creatinine Clr Calc Pharmacy 46.9200
[2025-01-07] MEDS: piperacillin-tazobactam 4.5 GM in sodium chloride 0.9% (plus) 50 ML IV (05:01)
[2025-01-07] MEDS: FUROsemide 10 mg/mL SDV 10mL 60 MG IVP (05:01)
[2025-01-07] MEDS: potassium chloride oral liq 20 mEq/15 mL UDC 40 MEQ PO (05:01)
[2025-01-07 05:28] VITALS: BP 149/77; PULSE 105; RESP 18; O2SAT 93
--- NOTE | 2025-01-07 10:14 | ECG_ITS ---
[facility] Date: 2025-01-07 Pat Name: Abimael Santilaln Department: Room: Gender: Male Ticket Machine Operator: : [id number] Requested By: Steve Jennings Order Number: [id number] Camacho MD: Angel Jefferson M.D. Measurements Intervals [place] Rate: 121 P: 0 TN: 0 QRS: -34 QRSD: 84 T: 0 QT: 239 QTc: 340 Interpretive Statements ATRIAL FIBRILLATION WITH RAPID VENTRICULAR RESPONSE WITH ABERRANT CONDUCTION OR VENTRICULAR PREMATURE COMPLEXES MILD ST DEPRESSION [0.05+ mV ST DEPRESSION] AND T WAVE FLATTENING Compared to ECG 12/30/2024 19:05:52 Ventricular premature complex(es) now present ST AND T WAVE CHANGES NOW PRESENT Electronically Signed On 01-07-2025 14:46:18 CDT by Angel Jefferson M.D. [email or web address]
== END 2025-01-07 05:31 | disposition home or self-care (01) ==
PROVIDERS: Emergency Provider Emergency Medicine; PCP Nurse Practitioner Adult Health
DX: I48.91 Unspecified atrial fibrillation (principal); J18.9 Pneumonia, unspecified organism; Z79.01 Long term (current) use of anticoagulants; Z11.52 Encounter for screening for COVID-19; F17.210 Nicotine dependence, cigarettes, uncomplicated; J44.9 Chronic obstructive pulmonary disease, unspecified; E78.5 Hyperlipidemia, unspecified; I10 Essential (primary) hypertension
CPT/HCPCS: 36415; 71045; 80053; 83605; 83880; 85025; 85610; 87040; 87637; 93005; 94640; 96374; 96375; 99285; J1160; J1938; J2543; J9999

== ENCOUNTER 2025-01-13 08:00 | Emergency (ER) | payer MEDICARE, OTHER, SELFPAY ==
--- OUTSIDE RECORDS SUMMARY | 2025-01-13 08:06 | XMS_ITS | Encounter Summary ---
Author Organization [facility] Address [address] [place] [address] Care Team Providers Care Vehicle Trimmer Name Role Phone Manuel Morales MD Primary Care Provider [phone] Encounter Details Date Type Department Care Team (Latest Contact Info) Description 09/28/2002 Outpatient Historical [facility] Medicine [address] [phone] Manuel Morales MD [address] [address] DERMATITIS NOS (Primary Dx) Social History Tobacco Use Types Packs/Day Years Used Date Smoking Tobacco: Never Assessed Sex and Gender Information Value Date Recorded Sex Assigned at Not on file 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
--- OUTSIDE RECORDS SUMMARY | 2025-01-13 08:06 | XMS_ITS | Encounter Summary ---
Author Organization [facility] Address [address] [place] [address] Care Team Providers Care Dry Folder Cloth Name Role Phone Manuel Morales MD Primary Care Provider Encounter Details Date Type Department Care Team (Latest Contact Info) Description 09/21/2002 Outpatient Historical [facility] Imaging Services-[place] [address] [place] [address] Manuel Morales MD [address], [place] [address] CHEST PAIN NOS (Primary Dx) Social History Tobacco Use Types Packs/Day Years Used Date Smoking Tobacco: Never Assessed Sex and Gender Information Value Date Recorded Sex Assigned at Not on file 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
--- OUTSIDE RECORDS SUMMARY | 2025-01-13 08:06 | XMS_ITS | Encounter Summary ---
Author Organization [facility] Address [address] [place] [address] Care Team Providers Care Auto Claims Adjuster Name Role Phone Manuel Morales MD Primary Care Provider + [phone] Reason for Referral * CT Scan (Routine) - Closed Specialty Diagnoses / Procedures Referred By Contac t Referred To Contact Radiology Diagnoses Anterior chest wall pain Unexplained weight loss Smoker Procedures CT CHEST W WO CONTRAST Spencer Mills MD [facility] [place] [address] Phone: tel: fax: [facility] CT Scan [place] [address] [facility] [address] [place] [address] Phone: tel: fax: Referral ID Status Reason Start Date Expiration Date V isits Requested Visits Authorized [id number] Closed GAN View CTS to Schedule (SGF) 11/04/2018 12/05/2019 1 1 Encounter Details Date Type Department Care Team (Latest Contact Info) Description 11/04/2018 Ancillary Orders [facility] [address] [facility] [address] [place] [phone] Spencer Mills MD [address] [place], [place] [address] [address] Anterior chest wall pain; Unexplained weight [...] and Family Not on file 09/18/2018 Attends Druze Services Not on file 09/18 Active Member of Clubs or Organizations Not on f ile 09/18/2018 Attends Club or Organization Meetings Not on kym e 09/18/2018 Are you , , di vorced, , never , or living with a partner? 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
--- OUTSIDE RECORDS SUMMARY | 2025-01-13 08:06 | XMS_ITS | Encounter Summary ---
Author Organization [facility] Address [address] [place] [address] Care Team Providers Care Geochemistry Teacher Name Role Phone Manuel Morales MD Primary Care Provider [phone] Encounter Details Date Type Department Care Team (Latest Contact Info) Description 07/26/2002 Outpatient Historical [facility] Ear, Nose and Throat 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
--- OUTSIDE RECORDS SUMMARY | 2025-01-13 08:06 | XMS_ITS | Encounter Summary ---
Author Organization [facility] Address [address] [place] [address] Care Team Providers Care Regulatory Compliance Specialist Name Role Phone Manuel Morales MD Primary Care Provider [phone] Encounter Details Date Type Department Care Team (Late st Contact Info) Description 09/19/2002 Outpatient Historical [facility] Imaging Services-[place] [address] [place] [phone] Social History Tobacco Use Types Packs/Day Years Used Date Smoking Tobacco: Never Assessed Sex and Gender Information Value Date Recorded Sex Assigned at Not on file 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
--- OUTSIDE RECORDS SUMMARY | 2025-01-13 08:06 | XMS_ITS | Encounter Summary ---
Author Organization [facility] Address [address] [place] [address] Care Team Providers Care Malt Specifications Control Assistant Name Role Phone Manuel Morales MD Primary Care Provider [phone] Encounter Details Date Type Department Care Team (Late st Contact Info) Description 07/26/2002 Outpatient Historical [facility] Ear, Nose and Throat 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
--- OUTSIDE RECORDS SUMMARY | 2025-01-13 08:06 | XMS_ITS | Encounter Summary ---
Author Organization [facility] Address [address] [place] [address] Care Team Providers Care Orthopedic Physician Name Role Phone Manuel Morales MD Primary Care Provider [phone] Encounter Details Date Type Department Care Team (Latest Contact Info) Description 09/18/2002 Outpatient Historical [facility] Medicine [address] [phone] Manuel Morales MD [address] [address] ABDOMINAL PAIN UNSPEC SITE (Primary Dx) Social History Tobacco Use Types Packs/Day Years Used Date Smoking Tobacco: Never Assessed Sex and Gender Information Value Date Recorded Sex Assigned at Not on file Legal Sex Male 5:[address] ADVOCATE Gender Identity Not on file Sexual Orientation Not on file documented as of this encounter Plan of Treatment Not on file documented as of this encounter Visit Diagnoses Diagnosis Abdominal pain, unspecified site- Primary documented in this encounter Care Teams Orthopedic Physician Relationship Specialty Start Date End Date Manuel Morales MD PCP - General 05/18/07 documented as of this encounter
--- OUTSIDE RECORDS SUMMARY | 2025-01-13 08:06 | XMS_ITS | Encounter Summary ---
Author Organization [facility] Address [address] [place] [address] Care Team Providers Care Lead Pastor Name Role Phone Manuel Morales MD Primary Care Provider [phone] Encounter Details Date Type Department Care Team (Latest Contact Info) Description 09/21/2002 Outpatient Historical [facility] Imaging Services-[place] [address] [place] [phone] Manuel Morales MD [address] [place] [address] ABDOMINAL PAIN RUQ (Primary Dx) Social History Tobacco Use Types Packs/Day Years Used Date Smoking Tobacco: Never Assessed Sex and Gender Information Value Date Recorded Sex Assigned at Not on file 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
--- OUTSIDE RECORDS SUMMARY | 2025-01-13 08:06 | XMS_ITS | Encounter Summary ---
Author Organization [facility] Address [address] [facility] [address] [place] [address] Phone Care Team Providers Care Computer Bookkeeper Name Role Phone Spencer Foley MD Primary Care Provider [phone] Encounter Details Date Type Department Care Team (Late st Contact Info) Description 06/27/2020 Orders Only [facility] [address] [facility] [address] [place] [address] Social History Tobacco Use Types [...] on filedocumented in this encounter Care Teams Computer Bookkeeper Relationship Specialty Start Date End Date Spencer Foley MD [address] [place] [address] PCP - General Family Medicine 06/27/20 documented as of this encounter
--- OUTSIDE RECORDS SUMMARY | 2025-01-13 08:06 | XMS_ITS | Encounter Summary ---
Author Organization [facility] Address [address] [place] [address] Care Team Providers Care Lecturer In Computer Science Name Role Phone Manuel Morales MD Primary Care Provider [phone] Encounter Details Date Type Department Care Team (Latest Contact Info) Description 06/21/2002 Outpatient Historical [facility] Ear, Nose and Throat 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
--- OUTSIDE RECORDS SUMMARY | 2025-01-13 08:06 | XMS_ITS | Clinical Summary ---
Author Organization [facility] Address [address] [facility] [place] [address] Care Team Providers Care Teacher Dramatics Name Role Phone Manuel Morales MD Primary [...] and Family Not on file 09/18/2018 Attends Anglican Services Not on file 09/18 Active Member of Clubs or Organizations Not on f ile 09/18/2018 Attends Club or Organization Meetings Not on kym e 09/18/2018 Are you , , di vorced, , never , or living with a partner? 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
--- OUTSIDE RECORDS SUMMARY | 2025-01-13 08:06 | XMS_ITS | Clinical Summary ---
Author Organization [facility] Address [address] [facility] [address] [place]: Epic Prelude ADT RACHAEL RAPP [address] Care Team Providers Care Financial Management Name Role Phone Manuel Morales MD Primary [...] and Family Not on file 09/18/2018 Attends Religion Services Not on file 09/18 Active Member of Clubs or Organizations Not on f ile 09/18/2018 Attends Club or Organization Meetings Not on kym e 09/18/2018 Are you , , di vorced, , never , or living with a partner? 09/18/2018 Sex and Gender Information Value Date Recorded Sex Assigned at Not on file Legal Sex Male 11:10 AM TOUR BUS DRIVER/GUIDE Gender Identity Not on file Sexual Orientation [...] 2024 Insurance MEDICARE PART A AND B [facility] Care Teams Financial Management Relationship Specialty Start Date End Date Manuel Morales MD [address] [place] [address] PCP - General 05/18/07
--- OUTSIDE RECORDS SUMMARY | 2025-01-13 08:06 | XMS_ITS | Encounter Summary ---
Author Organization [facility] Address [address] [place] [address] Care Team Providers Care Varnish Dipper Name Role Phone Manuel Morales MD Primary Care Provider Encounter Details Date Type Department Care Team (Latest Contact Info) Description 03/15/2003 Outpatient Historical [facility] Medicine [address] [phone] Manuel Morales MD [address] [phone] OSTEOARTHROS NOS-OTHER SITE (Primary Dx) Social History Tobacco Use Types Packs/Day Years Used Date Smoking Tobacco: Never Assessed Sex and Gender Information Value Date Recorded Sex Assigned at Not on file 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
[2025-01-13 08:07] VITALS: BP 133/103; PULSE 126; RESP 16; TEMP 36.9; O2SAT 96; BMI 22.1
--- OUTSIDE RECORDS SUMMARY | 2025-01-13 08:07 | XMS_ITS | Encounter Summary ---
Author Organization [facility] Address [address] [place] [address] Care Team Providers Care Sales Training Representative Name Role Phone Manuel Morales MD Primary Care Provider [phone]- [phone] Encounter Details Date Type Department Care Team (Latest Contact Info) Description 01/27/2002 Outpatient Historical [facility] Medicine [address] [phone] Katherin Monte MD [address] [place] [phone] ABDOMINAL PAIN UNSPEC SITE (Primary Dx); DYSURIA; PROTEINURIA Social History Tobacco Use Types Packs/Day Years Used Date Smoking Tobacco: Never Assessed Sex and Gender Information Value Date Recorded Sex Assigned at Not on file 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
--- OUTSIDE RECORDS SUMMARY | 2025-01-13 08:07 | XMS_ITS | Encounter Summary ---
Author Organization [facility] Address [address] [place] [address] Care Team Providers Care Vp Of Global Marketing Name Role Phone Manuel Morales MD Primary Care Provider [phone]- [phone] Encounter Details Date Type Department Care Team (Late st Contact Info) Description 05/23/2002 Outpatient Historical [facility] Ear, Nose and Throat 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
--- OUTSIDE RECORDS SUMMARY | 2025-01-13 08:07 | XMS_ITS | Encounter Summary ---
Author Organization [facility] Address [address] [place] [address] Care Team Providers Care Casing Soaker Name Role Phone Manuel Morales MD Primary Care Provider Encounter Details Date Type Department Care Team (Latest Contact Info) Description 07/11/2001 Outpatient Historical [facility] Medicine [place] [address] [phone] Manuel Morales MD [address] [phone] NONINFEC GASTROENTERIT NEC (Primary Dx) Social History Tobacco Use Types Packs/Day Years Used Date Smoking Tobacco: Never Assessed Sex and Gender Information Value Date Recorded Sex Assigned at Not on file 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
--- OUTSIDE RECORDS SUMMARY | 2025-01-13 08:07 | XMS_ITS | Encounter Summary ---
Author Organization [facility] Address [address] [place] [address] Care Team Providers Care Heel Attacher Wood Name Role Phone Manuel Morales MD Primary Care Provider [phone] Encounter Details Date Type Department Care Team (Late st Contact Info) Description 02/16/2002 Outpatient Historical [facility] Medicine [address] [phone] Jaxon Newton, SERVICE OR WORK DISPATCHER [address] [place] [address] Social History Tobacco Use Types Packs/Day Years Used Date Smoking Tobacco: Never Assessed Sex and Gender Information Value Date Recorded Sex Assigned at Not on file 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
--- OUTSIDE RECORDS SUMMARY | 2025-01-13 08:07 | XMS_ITS | Encounter Summary ---
Author Organization [facility] Address [address] [place] [address] Care Team Providers Care Director Global Name Role Phone Manuel Morales MD Primary Care Provider [phone]- [phone] Encounter Details Date Type Department Care Team (Latest Contact Info) Description 05/23/2002 Outpatient Historical [facility] Head and Neck Surgery-[address] [place] [phone] Gabriel Frances MD [address] [phone] PERFORAT TYMPAN MEMB NOS (Primary Dx) Social History Tobacco Use Types Packs/Day Years Used Date Smoking Tobacco: Never Assessed Sex and Gender Information Value Date Recorded Sex Assigned at Not on file 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
--- OUTSIDE RECORDS SUMMARY | 2025-01-13 08:07 | XMS_ITS | Encounter Summary ---
Author Organization [facility] Address [address] [place] [address] Care Team Providers Care Dental Billing Specialist Name Role Phone Manuel Morales MD Primary Care Provider [phone]- [phone] Encounter Details Date Type Department Care Team (Latest Contact Info) Description 02/16/2002 Outpatient Historical [facility] Medicine [address] [phone] Manuel Morales MD [address] [phone] JOINT PAIN-UNSPEC (Primary Dx); HYPERLIPIDEMIA NEC/NOS; AFTERCARE PLANNER CHIEF USE MEDICATN; OTHER MALAISE AND FATIGUE Social History Tobacco Use Types Packs/Day Years Used Date Smoking Tobacco: Never Assessed Sex and Gender Information Value Date Recorded Sex Assigned at Not on file 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
--- OUTSIDE RECORDS SUMMARY | 2025-01-13 08:07 | XMS_ITS | Encounter Summary ---
Author Organization [facility] Address [address] [place] [address] Care Team Providers Care Medical Social Consultant Name Role Phone Manuel Morales MD Primary Care Provider [phone]- [phone] Encounter Details Date Type Department Care Team (Late st Contact Info) Description 03/14/2002 Outpatient Historical [facility] Medicine [address] [phone] Manuel Morales MD [address] [phone] Social History Tobacco Use Types Packs/Day Years Used Date Smoking Tobacco: Never Assessed Sex and Gender Information Value Date Recorded Sex Assigned at Not on file Legal Sex Male 5: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
--- OUTSIDE RECORDS SUMMARY | 2025-01-13 08:07 | XMS_ITS | Encounter Summary ---
Author Organization [facility] Address [address] [place] [address] Care Team Providers Care Sheet Metal Lay Out Worker Name Role Phone Manuel Morales MD Primary Care Provider Encounter Details Date Type Department Care Team (Latest Contact Info) Description 08/23/2000 Outpatient Historical [facility] Medicine [address] [phone] Manuel Morales MD [address] [phone] Pain in joint, lower leg (Primary Dx) Social History Tobacco Use Types Packs/Day Years Used Date Smoking Tobacco: Never Assessed Sex and Gender Information Value Date Recorded Sex Assigned at Not on file 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
--- OUTSIDE RECORDS SUMMARY | 2025-01-13 08:07 | XMS_ITS | Encounter Summary ---
Author Organization [facility] Address [address] [place] [address] Care Team Providers Care Char Belt Operator Name Role Phone Manuel Morales MD Primary Care Provider [phone]- [phone] Encounter Details Date Type Department Care Team (Late st Contact Info) Description 04/26/2002 Outpatient Historical [facility] Ear, Nose and Throat 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
--- OUTSIDE RECORDS SUMMARY | 2025-01-13 08:07 | XMS_ITS | Encounter Summary ---
Author Organization [facility] Address [address] [place] [address] Care Team Providers Care Black Top Raker Name Role Phone Manuel Morales MD Primary Care Provider Encounter Details Date Type Department Care Team (Latest Contact Info) Description 03/14/2002 Outpatient Historical [facility] Medicine [address] [phone] Manuel Morales MD [address] [phone] Hypertrophy of prostate (Primary Dx); Split of urinary stream Social History Tobacco Use Types Packs/Day Years Used Date Smoking Tobacco: Never Assessed Sex and Gender Information Value Date Recorded Sex Assigned at Not on file Legal Sex Male 5:01 AM PROGRAM SUPPORT ASSISTANT Gender Identity Not on file Sexual Orientation Not on file documented as of this encounter Plan of Treatment Not on file documented as of this encounter Visit Diagnoses Diagnosis Hypertrophy of prostate- Primary Hypertrophy (benign) of prostate Split of urinary stream Splitting of urinary stream documented in this encounter Care Teams Black Top Raker Relationship Specialty Start Date End Date Manuel Morales MD PCP - General 05/18/07 documented as of this encounter
--- OUTSIDE RECORDS SUMMARY | 2025-01-13 08:07 | XMS_ITS | Encounter Summary ---
Author Organization [facility] Address [address] [place] [address] Care Team Providers Care Channel Cementer Name Role Phone Manuel Morales MD Primary Care Provider [phone]- [phone] Encounter Details Date Type Department Care Team (Latest Contact Info) Description 04/26/[address] [facility] Ear, Nose and Throat 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
--- OUTSIDE RECORDS SUMMARY | 2025-01-13 08:07 | XMS_ITS | Encounter Summary ---
Author Organization [facility] Address [address] [place] [address] Care Team Providers Care Screener And Blender Name Role Phone Manuel Morales MD Primary Care Provider Encounter Details Date Type Department Care Team (Latest Contact Info) Description 08/05/2000 Outpatient Historical [facility] Medicine [address] [phone] Manuel Morales MD [address] [phone] Pain in joint, lower leg (Primary Dx) Social History Tobacco Use Types Packs/Day Years Used Date Smoking Tobacco: Never Assessed Sex and Gender Information Value Date Recorded Sex Assigned at Not on file 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
--- OUTSIDE RECORDS SUMMARY | 2025-01-13 08:07 | XMS_ITS | Encounter Summary ---
Author Organization [facility] Address [address] [place] [address] Care Team Providers Care Registration Scheduling Specialist Name Role Phone Manuel Morales MD Primary Care Provider [phone]- [phone] Encounter Details Date Type Department Care Team (Latest Contact Info) Description 03/21/2002 Outpatient Historical [facility] Medicine [address] [phone] Manuel Morales MD [address] [phone] PERFORAT TYMPAN MEMB NOS (Primary Dx) Social History Tobacco Use Types Packs/Day Years Used Date Smoking Tobacco: Never Assessed Sex and Gender Information Value Date Recorded Sex Assigned at Not on file 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
--- OUTSIDE RECORDS SUMMARY | 2025-01-13 08:07 | XMS_ITS | Encounter Summary ---
Author Organization [facility] Address [address] [place] [address] Care Team Providers Care Supervisor Home Economics Name Role Phone Manuel Morales MD Primary Care Provider [phone]- [phone] Encounter Details Date Type Department Care Team (Latest Contact Info) Description 02/03/2002 Outpatient Historical [facility] Medicine [address] [phone] Katherin Monte MD [address] [place] [phone] Hypertrophy of prostate (Primary Dx); ARTHROPATHY NOS-UNSPEC Social History Tobacco Use Types Packs/Day Years Used Date Smoking Tobacco: Never Assessed Sex and Gender Information Value Date Recorded Sex Assigned at Not on file 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
--- OUTSIDE RECORDS SUMMARY | 2025-01-13 08:07 | XMS_ITS | Encounter Summary ---
Author Organization [facility] Address [address] [place] [address] Care Team Providers Care Urban Designer Name Role Phone Manuel Morales MD Primary Care Provider [phone]- [phone] Encounter Details Date Type Department Care Team (Latest Contact Info) Description 03/30/2002 Outpatient Historical [facility] Medicine [address] [phone] Maunel Morales MD [address] [phone] PERFORAT TYMPAN MEMB NOS (Primary Dx) Social History Tobacco Use Types Packs/Day Years Used Date Smoking Tobacco: Never Assessed Sex and Gender Information Value Date Recorded Sex Assigned at Not on file 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
--- OUTSIDE RECORDS SUMMARY | 2025-01-13 08:07 | XMS_ITS | Encounter Summary ---
Author Organization [facility] Address [address] [place] [address] Care Team Providers Care Surfacer Operator Name Role Phone Manuel Morales MD Primary Care Provider Encounter Details Date Type Department Care Team (Latest Contact Info) Description 07/26/2000 Outpatient Historical [facility] Medicine [address] [phone] Manuel Morales MD [address] [phone] Pain in joint, lower leg (Primary Dx) Social History Tobacco Use Types Packs/Day Years Used Date Smoking Tobacco: Never Assessed Sex and Gender Information Value Date Recorded Sex Assigned at Not on file 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
--- OUTSIDE RECORDS SUMMARY | 2025-01-13 08:07 | XMS_ITS | Clinical Summary ---
Author Organization [facility] Address [address] [place] [address] Care Team Providers Care Business Analysis Consultant Name Role Phone Spencer Foley MD Primary Care Provider [phone] Allergies No known active allergies Medications tiotropium [...] complete this topic Insurance Medicare Care Teams Business Analysis Consultant Relationship Specialty Start Date End Date Spencer Foley MD [address] [place] [phone] PCP - General Family Medicine 06/27/20
--- NOTE | 2025-01-13 08:13 | ED_ITS ---
HPI - Male Genitourinary 2 General: Chief complaint: Urogenital-Male Stated complaint: urinary Time Seen by Provider: 01/13/25 08:05 Source: patient Mode of arrival: ambulatory Limitations: no limitations History of Present Illness: 79-year-old male states that over the la st few days he has been having urinary urgency and increased frequency states he feels like his go to bathroom every 15 to 20 minutes. States he has history of UTIs in the past along with prostate issues states he does see a urologist and is on meds. He also has a history A- fib some mild tachycardia here denies any chest pain shortness of breath or abdominal pain he denies any dysuria states he just has increased frequency Related Data Home Medications ?Medication ?Instructions ?Recorded ?Confirmed tamsulosin 0.4 mg capsule 0.4 mg PO QPM 05/22/1901/13 albuterol sulfate 90 mcg/actuation 2 puff inhalation B ID 02/16/20 01/13/25 aerosol inhaler finasteride 5 mg tablet (Proscar) 5 mg PO DAILY 01/13/25 omeprazole 20 mg capsule,delayed 20 mg PO DAILY 01/13/25 release Nicotine Patch Kit See Rx Instructions .Route . COMPLEX 01/13/25 01/13/25 acetaminophen 325 mg capsule 325 mg PO Q6H PRN Pain 01/13/25 apixaban 2.5 mg tablet (Eliquis) 2.52 mg PO BID 01/13/25 prednisone 50 mg tablet 50 mg PO DAILY 01/13/2508/04 Previous Rx's ?Medication ?Instructions ?Recorded amlodipine 5 mg tablet 5 mg PO DAILY #180 tabs 01/10 11/01 diltiazem HCl 240 mg capsule,24 240 mg PO DAILY #30 ca ps 12/31/24 hr,extended release (Tiazac) levofloxacin 750 mg tablet 750 mg PO DAILY 7 days #7 t abs 01/07/25 Allergies Allergy/AdvReac Type Severity Reaction Status Date / Time diltiazem Allergy Unknown Unknown Verified 12/30/24 19:09 enalapril Allergy Unknown Unknown Verified 12/30/24 19:09 Review of Systems 2 : Reports: urinary frequency and urinary urgency PFSH ED 2 PFSH: Medical History Tobacco abuse Right atrial mass History of colon polyps Hyperlipemia COPD (chronic obstructive pulmonary disease) Urolithiasis 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 Gross hematuria HTN (hypertension) with goal to be determined Atrial fibrillation Surgical History History of hernia surgery Open right inguinal hernia repair with mesh.- Dr Benton History of colonoscopy with polypectomy 2016 S/P cholecystectomy S/P hernia repair Family History Mother Heart disease Father Heart disease Sister Diabetes Social History Smoking and tobacco/nicotine status: current every day tobacco/nicotine user cigarettes Packs smoked per day: 2 Years cigarettes smoked: 49 [ Other cigarette details: 1 to 2 packs/day for 50 years as of 12/30/2024 he is considering quitting] Alcohol intake: former Year of sobriety/quit date alcohol: 1986 Former alcohol use details: Was heavy 8-10 beers a day and 2 quarts of whiskey on occasion Substance/Drug Use: never Additional social history: He wants full code no prolong life support. He states he talks with his kids infrequently but wants his eldest son Roderick Santillan to be decision-maker if he is incapacitated. 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 E6 Physical Exam 2 Const: COMMON NORMALS: no acute distress, patient oriented x3 and healthy appearing HENMT: COMMON NORMALS: normocephalic and atraumatic HEAD & SCALP: n ormocephalic and atraumatic Neck/C-Spine: COMMON NORMALS: full ROM and supple Chest: COMMONS NORMALS: normal inspection of the chest Resp: COMMON NORMALS: normal respiratory effort Cardio: COMMON NORMALS: No murmurs present (Cardio) RATE: tachycardic R HYTHM: abnormal rhythm irregularly irregular GI: COMMON NORMALS: Normal to inspection, nondistended, normoactive bowel sounds present, Soft to palpation, non-tender and no masses PALPATION: Yes Soft to palpation Extremity: COMMON NORMALS: normal to inspection and full ROM Neuro: COMMON NORMALS: patient oriented x3, moves all extremities and no focal motor deficits Psych: COMMON NORMALS: mental status grossly normal, Normal thought process present and cooperative THOUGHT PROCESS: Normal thought process present Skin: COMMON NORMALS: no rashes or lesions noted and no wounds GENERAL SKIN EXAM: no rashes or lesions noted Course 2 Vital Signs: Vital signs: Vital Signs Temperature 98.4 F 01/13/25 08:07 Pulse Rate 123 H 01/13/25 08:39 Respiratory Rate 22 H 01/13/25 08:39 Blood Pressure 137/90 01/13/25 08:39 Pulse Oximetry 93 01/13/25 08:39 Oxygen Delivery Me thod Room Air 01/13/25 08:39 MDM - Male Medical Decision Making Patient presents for increased urinary frequency has had this in the past differential includes acute cystitis prostatitis or urinary obstruction. Patient has no signs of UTI his urinalysis was negative no signs of prostatitis. Patient has been able to urinate here a large amount with no signs of obstruction. He has no signs of any acute infections or kidney infection. He does feel improved here he has a history of A-fib as well he was tachycardic here his heart rates improved after labetalol no symptoms with the A-fib he is to follow-up with his urologist I did go over all of his results he understands agrees to plan. I did review his EKG that showed A-fib with RVR heart rate [address] elevation QRS 87 QTc 359 Medical Records I reviewed the patient's medical records. Lab Data I reviewed the patient's lab results. 01/13/25 08:27 01/13/25 08:27 Laboratory Results WBC 12.94 10^3/uL (3.29-11.43) H 01/13/25 08:27 RBC 4.37 10^6/uL (3.85-5.65) 01/13/25 08:27 Hgb 13.80 g/dL (11.27-16.99) 01/13/25 08:27 Hct 41.2 % (37-53) 01/13/25 08:27 MCV 94.3 fl (82-101) 01/13/25 08:27 MCH 31.6 pg (27-33) 01/13/25 08:27 MCHC 33.5 g/dL (30-55) 01/13/25 08: RDW 13.5 % (12.1-15.1) 01/13/25 08: Plt Count 222 10^3/cmm (157-399) 01/13/25 08: MPV 9.8 fL (7.4-10.4) 01/13/25 08: Neut % (Auto) 88.8 % 01/13/25 08: Lymph % (Auto) 4.4 % 01/13/25 08:27 [place] % (Auto) 4.9 % 01/13/25 08: Eos % (Auto) 0.5 % 01/13/25 08: Baso % (Auto) 0.2 % 01/13/25 08: Neut # (Auto) 11.50 10^3/uL (1.8-7.7) H 01/13/25 08:27 Lymph # (Auto) 0.6 10^3/uL (0.8-4.8) L 01/13/25 08:27 [place] # (Auto) 0.6 10^3/uL (0.2-0.9) 01/13/25 08:27 Eos # (Auto) 0.1 10^3/uL (0.0-0.8) 01/13/25 08: Baso # (Auto) 0.0 10^3/uL (0.0-0.1) 01/13/25 08: Nucleated RBC % (auto) 0 % 01/13/25 08: Nucleated RBCs # 0.0 /100WBC 01/13/25 08: Sodium 130 mmol/L (136-145) L 01/13/25 08:27 Potassium 4.0 mmol/L (3.5-5.1) 01/13/25 08: Chloride 95 mmol/L (98-107) L 01/13/25 08: Carbon Dioxide 25 mmol/L (22-29) 01/13/25 08: Anion Gap 14.0 (5-19) 01/13/25 08:27 BUN 24 mg/dL (8-23) H 01/13/25 08: Creatinine 1.2 mg/dL (0.7-1.2) 01/13/25 08:27 GFR Calculation Not Reportable 01/13/25 08: Glucose 101 mg/dL (65-115) 01/13/25 08:27 Calculated Osmolality 274 mOsm/kg (285-295) L 01/13/25 08: Calcium 8.8 mg/dL (8.5-10.5) 01/13/25 08: Total Bilirubin 0.5 mg/dL (0.15-1.2) 01/13/25 08: AST 16 U/L (0-40) 01/13/25 08: ALT 18 U/L (0-41) 01/13/25 08: Alkaline Phosphatase 93 U/L (40-130) 01/13/25 08: Total Protein 6.6 g/dL (6.6-8.7) 01/13/25 08: Albumin 3.8 g/dL (3.5-5.2) 01/13/25 08: Globulin 2.8 g/dL (1.3-4.6) 01/13/25 08: Urine Color Yellow (Yellow) 01/13/25 09:19 Urine Appearance Clear (CLEAR) 01/13/25 09:19 Urine pH 7.5 (5-7) 01/13/25 09:19 Ur Specific [place] 1.009 (1.005-1.030) 01/13/25 09:19 Urine Protein 1+ (Negative) A 01/13/25 09:19 Urine Glucose (UA) Negative (Normal) 01/13/25 09:19 Urine Ketones Negative (Negative) 01/13/25 09:19 Urine Blood Negative (Negative) 01/13/25 09:19 Urine Nitrate Negative (Negative) 01/13/25 09:19 Urine Bilirubin Negative (Negative) 01/13/25 09:19 Urine Urobilinogen 1.0 mg/dL (Negative) 01/13/25 09:19 Ur Leukocyte Esterase Negative (Negative) 01/13/25 09:19 Urine RBC 0-4 /hpf (0-2) H 01/13/25 09:19 Urine WBC 0-4 /hpf (0-5) H 01/13/25 09:19 Ur Squamous Epith Cells 5-10 /hpf (0-5) H 01/13/25 09:19 Amorphous Sediment Not Reportable 01/13/25 09:19 Urine Bacteria Trace /hpf (NONE) 01/13/25 09:19 No radiology studies performed this visit EKG Data EKG 1: I personally reviewed and interpreted this EKG as follows: EKG Data: 01/13/25 EKG interpretation time: 08:23 Interpretation: afib hr [address] elevation qrs 87 qtc 339 Discharge Plan Discharge Patient Disposition: Home Clinical Impression: Urinary frequency, Atrial fibrillation Condition: Stable Prescriptions: No Action tamsulosin 0.4 mg capsule 0.4 mg PO QPM albuterol sulfate 90 mcg/actuation HFA aerosol inhaler 2 puff INHALATION BID omeprazole 20 mg capsule,delayed release(DR/EC) 20 mg PO DAILY finasteride [Proscar] 5 mg tablet 5 mg PO DAILY amlodipine 5 mg tablet 5 mg PO DAILY Qty: 180 3RF diltiazem HCl [Tiazac] 240 mg capsule,extended release 24 hr 240 mg PO DAILY Qty: 30 0RF levofloxacin 750 mg tablet 750 mg PO DAILY 7 Days Qty: 7 0RF prednisone 50 mg tablet 50 mg PO DAILY Eliquis 2.5 mg tablet 2.52 mg PO BID Nicotine Patch Kit See Rx Instructions .ROUTE .COMPLEX Rx Instructions: Take as directed per package instructions. Kit has 21mg, 14mg and 7mg all in the same box, with instructions on how to taper down. acetaminophen 325 mg capsule 325 mg PO Q6H PRN (Reason: Pain) Discharge Orders: Discharge ED (Routine); Ordered 01/13/25 Ordered By: Norma Sanchez Referrals: Carly Stout [Primary Care Provider] - 4-7 days Discharge Diet: Advance as tolerated Discharge Activity: Resume usual activity Patient Instructions: A-fib (Atrial Fibrillation) (ED), Urinary Urgency and Frequency (DC) Print Language: Irish Coding Level of Care Code ED [employer] for Marcel Pritchett
--- NOTE | 2025-01-13 08:23 | ECG_ITS ---
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 Measurements Intervals [place] Rate: 117 P: 0 NH: 0 QRS: 122 QRSD: 87 T: 77 QT: 290 QTc: 405 Interpretive Statements ATRIAL FIBRILLATION WITH RAPID VENTRICULAR RESPONSE RIGHT AXIS DEVIATION [QRS AXIS > 100] LOW QRS VOLTAGE IN PRECORDIAL LEADS [QRS DEFLECTION < 1.0 mV IN CHEST LEADS] SEPTAL MYOCARDIAL INFARCTION , PROBABLY OLD [40+ ms Q WAVE IN V1/V2] Compared to ECG 01/07/2025 02:51:14 Right-axis deviation now present Low QRS voltage now present Myocardial infarct finding now present Ventricular premature complex(es) no longer present Aberrant conduction of supraventricular beat(s) no longer present ST (T wave) deviation no longer present T-wave abnormality no longer present Electronically Signed On 01-13-2025 14:25:44 CDT by Robb Tran M.D. [email or web address]
[2025-01-13 08:32] LABS: Hematocrit 41.2 % (37-53); Hemoglobin 13.80 g/dL (11.27-16.99); Mean Corpuscular HGB Conc 33.5 g/dL (30-55); Mean Corpuscular Hemoglobin 31.6 pg (27-33); Mean Corpuscular Volume 94.3 fl (82-101); Nucleated Red Blood Cells % 0 %; Platelet Count 222 10^3/cmm (157-399); Red Blood Count 4.37 10^6/uL (3.85-5.65); White Blood Count 12.94 10^3/uL (3.29-11.43)
[2025-01-13 08:39] VITALS: BP 137/90; PULSE 123; RESP 22; O2SAT 93
[2025-01-13] MEDS: labetalol 5 mg/mL SDV 20mL 10 MG IVP (08:46)
[2025-01-13 08:54] LABS: Alanine Aminotransferase 18 U/L (0-41); Albumin Level 3.8 g/dL (3.5-5.2); Alkaline Phosphatase 93 U/L (40-130); Aspartate Amino Transferase 16 U/L (0-40); Blood Urea Nitrogen 24 mg/dL (8-23); Calcium 8.8 mg/dL (8.5-10.5); Carbon Dioxide 25 mmol/L (22-29); Chloride 95 mmol/L (98-107); Creatinine Clr Calc Pharmacy 49.9700; Globulin 2.8 g/dL (1.3-4.6); Glucose 101 mg/dL (65-115); Osmolality Calculated 274 mOsm/kg (285-295); Sodium 130 mmol/L (136-145); Total Protein 6.6 g/dL (6.6-8.7)
[2025-01-13 09:03] LABS: Anion Gap 14.0 (5-19); Potassium 4.0 mmol/L (3.5-5.1)
[2025-01-13 09:26] LABS: Glucose Urine UA Negative (Normal); Nitrate Urine Negative (Negative); Specific Gravity, Urine 1.009 (1.005-1.030)
[2025-01-13 09:35] LABS: Add Urine Microscopic? YES
== END 2025-01-13 11:00 | disposition home or self-care (01) ==
PROVIDERS: Emergency Provider Emergency Medicine; PCP Nurse Practitioner Adult Health
DX: R39.15 Urgency of urination (principal); I48.91 Unspecified atrial fibrillation; Z79.01 Long term (current) use of anticoagulants; F17.210 Nicotine dependence, cigarettes, uncomplicated; J44.9 Chronic obstructive pulmonary disease, unspecified; E78.5 Hyperlipidemia, unspecified; I10 Essential (primary) hypertension
CPT/HCPCS: 80053; 81001; 85025; 93005; 96361; 96374; 99284; J3490; J7030

== ENCOUNTER → 2025-02-05 13:20 | Outpatient (BNVA) | payer MEDICARE, OTHER, SELFPAY | PROVIDERS: PCP Nurse Practitioner Adult Health; Visit Provider Internal Medicine | DX: J44.9 Chronic obstructive pulmonary disease, unspecified (principal); Z71.6 Tobacco abuse counseling; F17.210 Nicotine dependence, cigarettes, uncomplicated; Z12.2 Encounter for screening for malignant neoplasm of respiratory organs | CPT/HCPCS: 99204; 99406; Q3014 ==

== ENCOUNTER → 2025-02-28 13:14 | Outpatient (BNVA) | payer MEDICARE, OTHER, SELFPAY | PROVIDERS: PCP Nurse Practitioner Adult Health; Referring Provider Nurse Practitioner Adult Health; Visit Provider Internal Medicine | DX: I51.89 Other ill-defined heart diseases (principal); I48.91 Unspecified atrial fibrillation; I10 Essential (primary) hypertension; Z72.0 Tobacco use; Z79.01 Long term (current) use of anticoagulants | CPT/HCPCS: 99204 ==

== ENCOUNTER 2025-03-13 12:39 | Outpatient (CLI) | payer MEDICARE, OTHER, SELFPAY ==
--- NOTE | 2025-03-13 12:45 | USCV_ITS ---
Abimael Santillan Age: 79 Gender: M : 1945 Exam Date: 03/13/2025 13:13 Ordering Phys: Scooter Barrett M.D ([email or web address]) Technologist: REBEKA Exam Location: [facility] [place] Indication: Right atrial mass BP: 126 / 80 HR: 82 Rhythm: Sinus Technical Quality: Adequate MEASUREMENTS (Male / Female) Normal Values 2D ECHO LV Diastolic Diameter PLAX 5.2 cm 4.2 - 5.9 / 3.9 - 5.3 cm IVS Diastolic Thickness 0.9 cm 0.6 - 1.0 / 0.6 - 0.9 cm IVS Systolic Thickness 1.1 cm LVPW Diastolic Thickness 1.0 cm 0.6 - 1.0 / 0.6 - 0.9 cm LVPW Systolic Thickness 1.2 cm LVOT Diameter 2.1 cm LV Ejection Fraction 2D Teich 13.5 % LV Ejection Fraction MOD 4C 64.6 % LV Ejection Fraction MOD 2C 54.6 % LV Ejection Fraction 2C AL 56.8 % LA Diameter 4.0 cm RA Systolic Volume 4C AL 43.0 ml RA Systolic Volume 4C MOD 41.2 ml LA Sys Volume AL 76.2 cm cubed LA Sys Volume Index AL 42.6 cm cubed/m squared Aorta at Sinotubular Diameter 3.3 cm IVC Diameter 1.7 cm M-MODE LA Ao Ratio MM 1.5 AV Cusp Separation MM 2.0 cm DOPPLER AV Peak Velocity 109.0 cm/s LVOT Peak Velocity 85.0 cm/s AV Area Cont Eq vti 2.6 cm squared AV Area Cont Eq pk 2.6 cm squared MV Peak Velocity 105.0 cm/s MV Area PHT 5.1 cm squared Mitral E to A Ratio 3.4 TR Peak Velocity 79.0 cm/s TR Peak Gradient 2.5 mmHg TV Peak E Velocity 101.0 cm/s PV Peak Velocity 85.0 cm/s FINDINGS Left Ventricle Normal left ventricular size and systolic function, EF 57%. No regional wall motion abnormalities. Right Ventricle Normal right ventricular size and systolic function. Right Atrium Mildly increased right atrial size. A broad-based echodensity was noted at the atrium attached to the superior aspect of the right atrial wall, measuring 2.8 x 1.0 cm Left Atrium Moderately increased left atrial volume 42.6 ml/m squared. IA Septum Normal interatrial septum. Mitral Valve Mild mitral annular calcification. Aortic Valve Thickened aortic valve. Tricuspid Valve Trace to mild tricuspid valve regurgitation. Pulmonic Valve No gross abnormalities noted Pericardium No pericardial effusion. Aorta Normal aortic annulus size. IVC Normal inferior vena cava. CONCLUSIONS Normal left ventricular size and systolic function, EF 57%. No regional wall motion abnormalities. Mildly increased right atrial size. A broad-based echodensity was noted in the right atrium attached to the superior aspect of the right atrial wall, measuring 2.8 x 1.0 cm. Moderately increased left atrial volume 42.6 ml/m squared. Mild mitral annular calcification. Thickened aortic valve. Trace to mild tricuspid valve regurgitation. There is no pericardial effusion. There are no intracardiac masses. Compared to the study from 01/24/2023, the mass appears to be smaller in size. Clinical correlation recommended Dr Robb Tran MD [facility] (Electronically Signed) Final Date: 18 March 2025 18:17 S
== END 2025-03-13 12:40 | disposition home or self-care (01) ==
LOC: RAD 12:40
PROVIDERS: PCP Nurse Practitioner Adult Health; Visit Provider Internal Medicine
DX: I51.89 Other ill-defined heart diseases (principal); I51.7 Cardiomegaly; R93.89 Abnormal findings on diagnostic imaging of other specified body structures; I34.81 Nonrheumatic mitral (valve) annulus calcification; I35.8 Other nonrheumatic aortic valve disorders; I07.1 Rheumatic tricuspid insufficiency
CPT/HCPCS: 93306

== ENCOUNTER 2025-03-21 12:30 | Outpatient (CLI) | payer MEDICARE, OTHER, SELFPAY | END 2025-03-21 12:31 | disposition home or self-care (01) | LOC: RT 12:33 | PROVIDERS: PCP Nurse Practitioner Adult Health; Visit Provider Internal Medicine | DX: J44.9 Chronic obstructive pulmonary disease, unspecified (principal) | CPT/HCPCS: J7613 ==

== ENCOUNTER → 2025-03-22 14:12 | Outpatient (BNVA) | payer MEDICARE, OTHER, SELFPAY | PROVIDERS: PCP Nurse Practitioner Adult Health; Visit Provider Internal Medicine | DX: J44.9 Chronic obstructive pulmonary disease, unspecified (principal); Z12.2 Encounter for screening for malignant neoplasm of respiratory organs; F17.210 Nicotine dependence, cigarettes, uncomplicated | CPT/HCPCS: 99214; Q3014 ==